=== PATIENT | female | born 1940 | race Hispanic/Latino ===

== ENCOUNTER → 2018-01-20 | Outpatient (CLI) | payer OTHER ==
[~2018-01-20] MED LIST: ASPI-555 PO; CETI10TA57 PO; CITA-107 PO; CLOP75TA32 PO; DONE10TA43 PO; METF500T6 PO; METO-408 PO; METO25TA6 PO; PANT40TA25 PO; RESV1TAB PO; ROSU10TA27 PO; SODIUM CHLORIDE 0.9% 1000ML 1,000 ML IV ONE; ZONI25CA3 PO
== END | disposition home or self-care (01) ==
LOC: RAH 10:00
PROVIDERS: ATTEND Psychiatry & Neurology Neurology
DX: R56.9 Unspecified convulsions (principal)
CPT/HCPCS: 70450

== ENCOUNTER → 2018-09-15 | Outpatient (CLI) | payer OTHER ==
[~2018-09-15] MED LIST changes: +METF-444 PO; -METF500T6 PO; -SODIUM CHLORIDE 0.9% 1000ML 1,000 ML IV ONE
== END | disposition home or self-care (01) ==
LOC: SHCH 10:53
PROVIDERS: ATTEND Internal Medicine Cardiovascular Disease
DX: I65.23 Occlusion and stenosis of bilateral carotid arteries (principal)
CPT/HCPCS: 93880

== ENCOUNTER 2019-09-20 22:43 | Emergency (ER) | payer OTHER ==
[~2019-09-20 22:43] MED LIST changes: -ROSU10TA27 PO; +ROSU10TA28 PO
[2019-09-20 23:49] LABS: BASOPHILS % (AUTO) 0.7 % (0.0-5.0); EOSINOPHILS % (AUTO) 6.9 % (0.0-8.0); HEMATOCRIT 38.3 % (36-48); LYMPHOCYTES % (AUTO) 24.3 % (21.0-51.0); MEAN CORPUSCULAR HEMOGLOBIN 29.9 pg (27.0-33.0); MEAN CORPUSCULAR HGB CONC 31.6 g/dL (32.0-36.0); MEAN CORPUSCULAR VOLUME 94.6 fL (79-99); MONOCYTES % (AUTO) 6.4 % (3.0-13.0); NEUTROPHILS % (AUTO) 61.5 % (40.0-77.0); PLATELET COUNT (AUTO) 254 K/uL (130-400); RED BLOOD CELL COUNT(AUTO) 4.05 MIL/uL (4.00-5.50); RED CELL DISTRIBUTION WIDTH 13.1 % (11.0-15.5); WHITE BLOOD COUNT (AUTO) 8.9 K/uL (4.8-10.8)
[2019-09-21 00:01] LABS: CREATININE 0.8 mg/dL (0.5-1.5); POTASSIUM 3.8 mmol/L (3.5-5.1)
[2019-09-21 00:03] LABS: INR 1.01 (0.85-1.15); PARTIAL THROMBOPLASTIN TIME 24.7 SEC (26.3-35.5); PROTHROMBIN TIME 10.6 SEC (9.6-11.6)
[2019-09-21 00:06] LABS: ALBUMIN 3.3 g/dL (3.5-5.0); BILIRUBIN,TOTAL 0.1 mg/dL (0.2-1.0); TOTAL PROTEIN, SERUM 6.4 g/dL (6.0-8.3)
[2019-09-21 01:07] LABS: B-TYPE NATRIURETIC PEPTIDE 29 pg/mL (0-100)
[2019-09-21 01:33] LABS: APPEARANCE,URINE Clear (CLEAR); BILIRUBIN,URINE Negative (NEGATIVE); COLOR,URINE Yellow (YELLOW); GLUCOSE, URINE (UA) 250 mg/dL (NEGATIVE); KETONES,URINE Negative (NEGATIVE); LEUKOCYTE ESTERASE ,URINE Small (NEGATIVE); NITRATE,URINE Positive (NEGATIVE); OCCULT BLOOD,URINE Negative (NEGATIVE); PH,URINE 5.5 (5.0-8.0); PROTEIN,URINE Negative (NEGATIVE)
[2019-09-21] MEDS ORDERED: ACETAMINOPHEN EXTRA STRENGTH 500 MG TABLET ONE (01:40)
[2019-09-21] MEDS ORDERED: KETOROLAC TROMETHAMINE 15MG/ML ONE (01:44)
[2019-09-21 01:46] LABS: BACTERIA,URINE Many /HPF (None Seen); MUCUS,URINE None Seen LPF (None Seen); RBC,URINE None Seen /HPF (0-1); SQUAMOUS EPITHELIAL CELL,UR None Seen /HPF (0-2)
[2019-09-21] MEDS ORDERED: SODIUM CHLORIDE 0.9% 500ML 500 ML IV ONE (02:01)
[2019-09-21] MEDS ORDERED: SODIUM CHLORIDE 0.9% 50 ML IV ONE (02:01)
[2019-09-21] MEDS ORDERED: CEFTRIAXONE SODIUM 1 GM ONE (02:01)
== END 2019-09-21 03:23 | disposition home or self-care (01) ==
LOC: EDH 22:43
DX: S01.01XA Laceration without foreign body of scalp, initial encounter (principal); N39.0 Urinary tract infection, site not specified; R79.1 Abnormal coagulation profile; E11.9 Type 2 diabetes mellitus without complications; I10 Essential (primary) hypertension; E78.5 Hyperlipidemia, unspecified; I25.10 Atherosclerotic heart disease of native coronary artery without angina pectoris; Z91.041 Radiographic dye allergy status; Z88.6 Allergy status to analgesic agent; Z88.5 Allergy status to narcotic agent; Z88.8 Allergy status to other drugs, medicaments and biological substances; W18.39XA Other fall on same level, initial encounter; Y93.89 Activity, other specified; Y92.89 Other specified places as the place of occurrence of the external cause; Y99.8 Other external cause status
CPT/HCPCS: 12001; 36415; 70450; 71045; 72125; 80053; 81001; 83690; 83880; 84484; 85025; 85610; 85730; 93005; 96374; 96375; 99285; J0696; J1885; J7040

== ENCOUNTER 2020-05-16 15:16 | Emergency (ER) | payer OTHER ==
[~2020-05-16 15:16] MED LIST changes: -ASPI-555 PO; +ASPI-556 PO; -PANT40TA25 PO; +PANT40TA54 PO; +ZONI25CA14 PO; -ZONI25CA3 PO
[2020-05-16 15:42] LABS: BASOPHILS % (AUTO) 1.1 % (0.0-5.0); EOSINOPHILS % (AUTO) 6.1 % (0.0-8.0); HEMATOCRIT 44.7 % (36-48); LYMPHOCYTES % (AUTO) 26.7 % (21.0-51.0); MEAN CORPUSCULAR HGB CONC 32.2 g/dL (32.0-36.0); MEAN CORPUSCULAR VOLUME 93.1 fL (79-99); MONOCYTES % (AUTO) 4.7 % (3.0-13.0); NEUTROPHILS % (AUTO) 61.2 % (40.0-77.0); PLATELET COUNT (AUTO) 265 K/uL (130-400); RED CELL DISTRIBUTION WIDTH 12.9 % (11.0-15.5); WHITE BLOOD COUNT (AUTO) 8.3 K/uL (4.8-10.8)
[2020-05-16 15:56] LABS: CREATININE 0.8 mg/dL (0.5-1.5); POTASSIUM 4.7 mmol/L (3.5-5.1)
[2020-05-16 16:01] LABS: ALBUMIN 3.6 g/dL (3.5-5.0); BILIRUBIN,TOTAL 0.3 mg/dL (0.2-1.0); TOTAL PROTEIN, SERUM 7.6 g/dL (6.0-8.3)
== END 2020-05-16 17:26 | disposition home or self-care (01) ==
LOC: EDH 15:16
DX: G40.89 Other seizures (principal); S00.11XA Contusion of right eyelid and periocular area, initial encounter; I10 Essential (primary) hypertension; E78.5 Hyperlipidemia, unspecified; I25.10 Atherosclerotic heart disease of native coronary artery without angina pectoris; E11.9 Type 2 diabetes mellitus without complications; Z79.899 Other long term (current) drug therapy; Z88.6 Allergy status to analgesic agent; Z91.041 Radiographic dye allergy status; Z88.8 Allergy status to other drugs, medicaments and biological substances; W01.198A Fall on same level from slipping, tripping and stumbling with subsequent striking against other object, initial encounter; Y93.89 Activity, other specified; Y92.098 Other place in other non-institutional residence as the place of occurrence of the external cause; Y99.8 Other external cause status
CPT/HCPCS: 36415; 70450; 80053; 85025; 93005

== ENCOUNTER 2020-08-23 19:40 | Observation (INO) | payer OTHER ==
[~2020-08-23] VITALS: Ht 156.2 cm; Wt 62.1 kg
[2020-08-23 20:25] LABS: BASOPHILS % (AUTO) 0.9 % (0.0-5.0); EOSINOPHILS % (AUTO) 5.5 % (0.0-8.0); HEMATOCRIT 41.2 % (36-48); MEAN CORPUSCULAR HEMOGLOBIN 30.2 pg (27.0-33.0); MEAN CORPUSCULAR HGB CONC 32.3 g/dL (32.0-36.0); MEAN CORPUSCULAR VOLUME 93.4 fL (79-99); MONOCYTES % (AUTO) 6.4 % (3.0-13.0); NEUTROPHILS % (AUTO) 61.1 % (40.0-77.0); PLATELET COUNT (AUTO) 267 K/uL (130-400); RED BLOOD CELL COUNT(AUTO) 4.41 MIL/uL (4.00-5.50); RED CELL DISTRIBUTION WIDTH 12.7 % (11.0-15.5); WHITE BLOOD COUNT (AUTO) 8.8 K/uL (4.8-10.8)
[2020-08-23 20:36] LABS: INR 0.92 (0.85-1.15); PARTIAL THROMBOPLASTIN TIME 24.3 SEC (26.3-35.5)
[2020-08-23 20:50] LABS: ALBUMIN 3.5 g/dL (3.5-5.0); BILIRUBIN,TOTAL 0.2 mg/dL (0.2-1.0); CREATININE 0.9 mg/dL (0.5-1.5); POTASSIUM 4.2 mmol/L (3.5-5.1); TOTAL PROTEIN, SERUM 6.2 g/dL (6.0-8.3)
[2020-08-23 21:15] LABS: BASE EXCESS,VENOUS BLOOD GAS 0.1 (-2.0-3.0); HCO3,VENOUS BLOOD GAS 25.7 (21.0-28.0); PCO2,VENOUS BLOOD GAS 45 (32-45); PH,VENOUS BLOOD GAS 7.374 (7.350-7.450)
[2020-08-24] MEDS ORDERED: NITROGLYCERIN 0.4 MG SL TAB SL PRN (00:30)
[2020-08-24] MEDS ORDERED: LACTULOSE 20 GM/30 ML UDCUP PO PRN (00:30)
[2020-08-24] MEDS ORDERED: DiphenhydrAMINE HCL 50 MG/ML VIAL IV PRN (00:30)
[2020-08-24] MEDS ORDERED: ONDANSETRON HCL 4 MG/2 ML VIAL IV PRN (00:30)
[2020-08-24] MEDS ORDERED: MAG HYDROX/AL HYDROX/SIMETH ES 30 ML SUSP UDCUP PO PRN (00:30)
[2020-08-24 02:12] LABS: HEMOGLOBIN A1C 10.7 % (4.0-6.0)
[2020-08-24 07:48] LABS: APPEARANCE,URINE Clear (CLEAR); BILIRUBIN,URINE Negative (NEGATIVE); COLOR,URINE Yellow (YELLOW); GLUCOSE, URINE (UA) >=1000 mg/dL (NEGATIVE); KETONES,URINE Negative (NEGATIVE); LEUKOCYTE ESTERASE ,URINE Small (NEGATIVE); NITRATE,URINE Negative (NEGATIVE); OCCULT BLOOD,URINE Negative (NEGATIVE); PH,URINE 6.5 (5.0-8.0); PROTEIN,URINE Negative (NEGATIVE)
[2020-08-24 08:04] LABS: BACTERIA,URINE Few /HPF (None Seen); RBC,URINE 0-1 /HPF (0-1)
[2020-08-24] MEDS ORDERED: INSULIN HUMULIN R 100 UNIT/ML 3ML ONE (08:57)
[2020-08-24] MEDS ORDERED: FAMOTIDINE 20MG TAB 20 MG TAB ONE (08:57)
[2020-08-24] MEDS: ASPIRIN 81 MG EC TAB PO SCH (09:00)
[2020-08-24] MEDS: CLOPIDOGREL BISULFATE 75 MG TAB PO SCH (09:00)
[2020-08-24] MEDS: CITALOPRAM 20 MG TABLET PO SCH (09:00)
[2020-08-24] MEDS: ZONISAMIDE 25 MG PO SCH ×3 (09:00→20:52)
[2020-08-24] MEDS: METOPROLOL SUCCINATE 50 MG TAB.SR.24H PO SCH (09:00)
[2020-08-24] MEDS: FAMOTIDINE 20MG TAB 20 MG TAB PO SCH ×2 (09:00→20:53)
[2020-08-24] MEDS: CETIRIZINE HCL 5 MG TABLET PO SCH (09:00)
[2020-08-24] MEDS ORDERED: ASPIRIN 81MG TAB.CHEW ONE (11:25)
[2020-08-24] MEDS ORDERED: CETIRIZINE HCL 5 MG TABLET PO ONE (11:25)
[2020-08-24] MEDS ORDERED: CLOPIDOGREL BISULFATE 75 MG TAB ONE (11:26)
[2020-08-24] MEDS: INSULIN HUMULIN R 100 UNIT/ML 3ML SQ SCH ×3 (11:30→21:03)
[2020-08-24 13:20] VITALS: BP 119/45
[2020-08-24] MEDS: SODIUM CHLORIDE 0.9% 1000ML 1,000 ML IV SCH (13:50)
[2020-08-24] MEDS: ATORVASTATIN CALCIUM 20 MG TABLET PO SCH (17:05)
[2020-08-24 17:40] VITALS: BP 113/61
[2020-08-24 20:42] VITALS: BP 113/40
[2020-08-24] MEDS ORDERED: DONEPEZIL HCL 5 MG TAB PO SCH (21:00)
[2020-08-24] MEDS ORDERED: METOPROLOL TARTRATE 25 MG TAB PO SCH (21:00)
[2020-08-24 23:57] VITALS: BP 118/44
[2020-08-25] MEDS: SODIUM CHLORIDE 0.9% 1000ML 1,000 ML IV SCH (03:10)
[2020-08-25 04:26] VITALS: BP 124/44
[2020-08-25] MEDS: INSULIN HUMULIN R 100 UNIT/ML 3ML SQ SCH ×2 (07:30→11:56)
[2020-08-25 07:44] VITALS: BP 112/34
[2020-08-25 08:23] LABS: BASOPHILS % (AUTO) 0.8 % (0.0-5.0); HEMATOCRIT 44.4 % (36-48); LYMPHOCYTES % (AUTO) 26.6 % (21.0-51.0); MEAN CORPUSCULAR HEMOGLOBIN 29.7 pg (27.0-33.0); MEAN CORPUSCULAR HGB CONC 31.8 g/dL (32.0-36.0); MEAN CORPUSCULAR VOLUME 93.7 fL (79-99); MONOCYTES % (AUTO) 5.2 % (3.0-13.0); NEUTROPHILS % (AUTO) 60.1 % (40.0-77.0); PLATELET COUNT (AUTO) 260 K/uL (130-400); RED BLOOD CELL COUNT(AUTO) 4.74 MIL/uL (4.00-5.50); WHITE BLOOD COUNT (AUTO) 7.5 K/uL (4.8-10.8)
[2020-08-25 08:40] LABS: ALBUMIN 2.9 g/dL (3.5-5.0); BILIRUBIN,TOTAL 0.3 mg/dL (0.2-1.0); CREATININE 0.6 mg/dL (0.5-1.5); POTASSIUM 4.8 mmol/L (3.5-5.1)
[2020-08-25] MEDS: ASPIRIN 81 MG EC TAB PO SCH (09:44)
[2020-08-25] MEDS: CITALOPRAM 20 MG TABLET PO SCH (09:45)
[2020-08-25] MEDS: ZONISAMIDE 25 MG PO SCH (09:45)
[2020-08-25] MEDS: ATORVASTATIN CALCIUM 20 MG TABLET PO SCH (09:45)
[2020-08-25] MEDS: FAMOTIDINE 20MG TAB 20 MG TAB PO SCH (09:45)
[2020-08-25] MEDS: METOPROLOL SUCCINATE 50 MG TAB.SR.24H PO SCH (09:45)
[2020-08-25] MEDS: CETIRIZINE HCL 5 MG TABLET PO SCH (09:45)
[2020-08-25] MEDS: CLOPIDOGREL BISULFATE 75 MG TAB PO SCH (09:45)
[2020-08-25 11:32] VITALS: BP 97/57
--- NOTE | 2020-08-25 13:00 | NUR ---
MET W PATIENT AND SPOUSE AT BEDSIDE. LIVES WITH SPOUSE AARON, WHO DECLINED TO BE LISTED ON FACE SHEET AT HE DOES NOT CARRY A PHONE- DAUGHTER ROCHELLE'S NUMBER CONFIRMED. NO HOME SERVICE, ADC, OR PROVIDER. PATIENT STATES SHE IS ACTIVE, INDEPENDENT, USES NO DME FOR MOBILITY, AND DRIVES HERSELF, ALTHOUGH AARON DOES MOST DRIVING. STATES DCP IS HOME Addendum: 08/25/20 at 1521 by FILIPE PÉREZ RN CM Amended: Links added.
--- NOTE | 2020-08-25 16:16 | NUR ---
IV REMOVED W/O DIFFICULTY OR COMPLICATIONS, DISCHARGE INSTRUCTIONS REVIEWED AND UNDERSTOOD BY PT AND FAMILY. PT DISMISSED BY W/C IN GOOD CONDITION W/O PAIN OR RESP DIFFICULTY BY THIS NURSE ACCOMPANIED BY SPOUSE
== END 2020-08-25 15:40 | disposition home or self-care (01) ==
LOC: EDH 19:40 → EDHIP 08-24 00:26 → 3DH 08-24 12:00
PROVIDERS: ADMIT Internal Medicine Critical Care Medicine; ATTEND Internal Medicine Critical Care Medicine
DX: S60.221A Contusion of right hand, initial encounter (principal); E11.9 Type 2 diabetes mellitus without complications; E78.5 Hyperlipidemia, unspecified; F32.9 Major depressive disorder, single episode, unspecified; F41.9 Anxiety disorder, unspecified; G40.909 Epilepsy, unspecified, not intractable, without status epilepticus; I10 Essential (primary) hypertension; I25.10 Atherosclerotic heart disease of native coronary artery without angina pectoris; Z79.02 Long term (current) use of antithrombotics/antiplatelets; Z79.82 Long term (current) use of aspirin; Z79.84 Long term (current) use of oral hypoglycemic drugs; Z88.5 Allergy status to narcotic agent; Z90.710 Acquired absence of both cervix and uterus; Z95.5 Presence of coronary angioplasty implant and graft; W18.39XA Other fall on same level, initial encounter; Y93.01 Activity, walking, marching and hiking; Y92.098 Other place in other non-institutional residence as the place of occurrence of the external cause; Y99.8 Other external cause status
CPT/HCPCS: 36415 ×2; 70450; 71045; 72125; 72170; 73130; 80053 ×2; 80177; 81001; 82010; 82803; 82948 ×6; 83036; 83930; 84484; 85025 ×2; 85610; 85730; 93005; 93306; 93356; 93880; 99285; G0378 ×40; J1815 ×4; J7030

== ENCOUNTER 2020-12-07 08:00 | Day surgery (SDC) | payer OTHER ==
[2020-12-05 13:33] LABS: BASOPHILS % (AUTO) 1.1 % (0.0-5.0); HEMATOCRIT 46.9 % (36-48); LYMPHOCYTES % (AUTO) 28.5 % (21.0-51.0); MEAN CORPUSCULAR HEMOGLOBIN 29.6 pg (27.0-33.0); MEAN CORPUSCULAR HGB CONC 31.3 g/dL (32.0-36.0); MEAN CORPUSCULAR VOLUME 94.6 fL (79-99); NEUTROPHILS % (AUTO) 57.1 % (40.0-77.0); PLATELET COUNT (AUTO) 267 K/uL (130-400); RED BLOOD CELL COUNT(AUTO) 4.96 MIL/uL (4.00-5.50); RED CELL DISTRIBUTION WIDTH 13.2 % (11.0-15.5); WHITE BLOOD COUNT (AUTO) 7.6 K/uL (4.8-10.8)
[2020-12-05 13:48] LABS: CREATININE 0.8 mg/dL (0.5-1.5); POTASSIUM 4.6 mmol/L (3.5-5.1)
[2020-12-05 13:52] LABS: INR 1.01 (0.85-1.15)
[2020-12-05 13:54] LABS: PARTIAL THROMBOPLASTIN TIME 24.5 SEC (26.3-35.5)
[2020-12-06 11:26] VITALS: BP 111/48
[~2020-12-07] VITALS: Ht 157.5 cm; Wt 62.2 kg
[2020-12-07] VITALS (19 sets, daily range): BP systolic 101–135; BP diastolic 42–85
[~2020-12-07 08:00] MED LIST changes: -ASPI-556 PO; -CETI10TA57 PO; +DAPA10TA PO; +LEVE500T98 PO; -METF-444 PO; -METO25TA6 PO; +OXYB5TAB15 PO; -RESV1TAB PO; +SODIUM CHLORIDE 0.9% 1000ML 1,000 ML IV SCH; +SUCR1TAB2 PO
[2020-12-07] MEDS ORDERED: LIDOCAINE HCL 2% VISCOUS 15 ML UDCUP PO SCH (09:45)
[2020-12-07] MEDS ORDERED: MIDAZOLAM HCL 1 MG/ML 2ML VIAL ONE (10:09)
[2020-12-07] MEDS ORDERED: FLUMAZENIL 0.1MG/1ML 5ML VIAL IV ONE (10:09)
[2020-12-07] MEDS ORDERED: MEPERIDINE-PF 25 MG/ML SYG ONE (10:10)
[2020-12-07] MEDS ORDERED: FENTANYL CITRATE PF 50 MCG/1 ML 2ML VIAL ONE ×2 (13:55→14:06)
== END 2020-12-07 17:10 | disposition home or self-care (01) ==
LOC: DAH 08:00
PROVIDERS: ATTEND Internal Medicine Cardiovascular Disease
DX: Q21.1 Atrial septal defect (principal); I08.1 Rheumatic disorders of both mitral and tricuspid valves; E11.9 Type 2 diabetes mellitus without complications; E78.5 Hyperlipidemia, unspecified; I10 Essential (primary) hypertension; G43.909 Migraine, unspecified, not intractable, without status migrainosus; K21.9 Gastro-esophageal reflux disease without esophagitis; F41.9 Anxiety disorder, unspecified; F32.9 Major depressive disorder, single episode, unspecified; Z95.5 Presence of coronary angioplasty implant and graft; Z79.82 Long term (current) use of aspirin; Z79.899 Other long term (current) drug therapy; Z90.710 Acquired absence of both cervix and uterus; Z98.890 Other specified postprocedural states; Z88.8 Allergy status to other drugs, medicaments and biological substances; Z88.3 Allergy status to other anti-infective agents; Z79.01 Long term (current) use of anticoagulants
CPT/HCPCS: 36415; 80048; 85025; 85610; 85730; 93005; 93313; A4215 ×2; A4216; A4221; A4222; A4223 ×3; A4663; J2250; J3010; J7030; 99152; J2175; J3490

== ENCOUNTER → 2021-08-27 | Outpatient (CLI) | payer OTHER ==
[~2021-08-27] MED LIST changes: -SODIUM CHLORIDE 0.9% 1000ML 1,000 ML IV SCH
[2021-08-27 12:08] LABS: PLATELET FUNCTION ANALYSIS ADP 68 SEC (62-100); PLATELET FUNCTION ANALYSIS EPI 77 SEC (55-192)
[2021-08-27 12:22] LABS: HEMATOCRIT 49.7 % (36-48); PLATELET COUNT (AUTO) 296 K/uL (130-400)
== END | disposition home or self-care (01) ==
LOC: LAB 10:10
PROVIDERS: ATTEND Internal Medicine Medical Oncology
DX: D68.9 Coagulation defect, unspecified (principal)
CPT/HCPCS: 36415; 85576

== ENCOUNTER 2021-12-12 05:02 | Emergency (ER) | payer MEDICARE, OTHER ==
[~2021-12-12] VITALS: Ht 154.9 cm; Wt 61.2 kg
[2021-12-12 05:44] VITALS: BP 118/37
[2021-12-12] MEDS ORDERED: ACETAMINOPHEN 500 MG TABLET ONE (05:47)
== END 2021-12-12 06:00 | disposition home or self-care (01) ==
LOC: EDH 05:02
DX: R04.0 Epistaxis (principal); E11.9 Type 2 diabetes mellitus without complications; E78.00 Pure hypercholesterolemia, unspecified; I10 Essential (primary) hypertension; Z79.84 Long term (current) use of oral hypoglycemic drugs; Z79.899 Other long term (current) drug therapy; Z88.5 Allergy status to narcotic agent; Z88.8 Allergy status to other drugs, medicaments and biological substances

== ENCOUNTER 2022-01-15 20:16 | Emergency (ER) | payer OTHER ==
[2022-01-15 20:52] LABS: BASOPHILS % (AUTO) 0.7 % (0.0-5.0); EOSINOPHILS % (AUTO) 5.8 % (0.0-8.0); HEMATOCRIT 42.4 % (36-48); MEAN CORPUSCULAR HEMOGLOBIN 29.1 pg (27.0-33.0); MEAN CORPUSCULAR HGB CONC 31.1 g/dL (32.0-36.0); MEAN CORPUSCULAR VOLUME 93.6 fL (79-99); MONOCYTES % (AUTO) 7.2 % (3.0-13.0); PLATELET COUNT (AUTO) 276 K/uL (130-400); RED BLOOD CELL COUNT(AUTO) 4.53 MIL/uL (4.00-5.50); RED CELL DISTRIBUTION WIDTH 13.3 % (11.0-15.5); WHITE BLOOD COUNT (AUTO) 9.7 K/uL (4.8-10.8)
[2022-01-15 20:55] LABS: CREATININE 0.7 mg/dL (0.5-1.5); POTASSIUM 3.8 mmol/L (3.5-5.1)
[2022-01-15] MEDS ORDERED: TRAMADOL HCL 50 MG TABLET PO ONE (22:30)
[2022-01-15 22:32] LABS: APPEARANCE,URINE Clear (CLEAR); BILIRUBIN,URINE Negative (NEGATIVE); COLOR,URINE Yellow (YELLOW); GLUCOSE, URINE (UA) >=1000 mg/dL (NEGATIVE); KETONES,URINE Negative (NEGATIVE); LEUKOCYTE ESTERASE ,URINE Negative (NEGATIVE); NITRATE,URINE Negative (NEGATIVE); OCCULT BLOOD,URINE Negative (NEGATIVE); PROTEIN,URINE Negative (NEGATIVE)
[2022-01-15 22:38] VITALS: BP 139/53
[2022-01-15 22:56] LABS: BACTERIA,URINE None Seen /HPF (None Seen); RBC,URINE 0-1 /HPF (0-1); SQUAMOUS EPITHELIAL CELL,UR Few /HPF (0-2); WBC,URINE 0-1 /HPF (0-1)
== END 2022-01-15 22:47 | disposition home or self-care (01) ==
LOC: EDH 20:16
DX: S09.90XA Unspecified injury of head, initial encounter (principal); M25.561 Pain in right knee; M25.562 Pain in left knee; M25.551 Pain in right hip; M79.621 Pain in right upper arm; E11.9 Type 2 diabetes mellitus without complications; I10 Essential (primary) hypertension; I21.9 Acute myocardial infarction, unspecified; I25.10 Atherosclerotic heart disease of native coronary artery without angina pectoris; Z88.8 Allergy status to other drugs, medicaments and biological substances; Z88.5 Allergy status to narcotic agent; Z79.899 Other long term (current) drug therapy; Z79.84 Long term (current) use of oral hypoglycemic drugs; W10.9XXA Fall (on) (from) unspecified stairs and steps, initial encounter; Y93.89 Activity, other specified; Y92.89 Other specified places as the place of occurrence of the external cause; Y99.8 Other external cause status
CPT/HCPCS: 36415; 70450; 72125; 73060; 73502; 73562; 80048; 81001; 84484; 85025; 93005

== ENCOUNTER 2022-01-28 23:07 | Emergency (ER) | payer OTHER ==
[~2022-01-28] VITALS: Ht 154.9 cm; Wt 61.7 kg
[2022-01-28 23:51] LABS: BASOPHILS % (AUTO) 0.8 % (0.0-5.0); EOSINOPHILS % (AUTO) 7.9 % (0.0-8.0); HEMATOCRIT 45.5 % (36-48); LYMPHOCYTES % (AUTO) 27.3 % (21.0-51.0); MEAN CORPUSCULAR HEMOGLOBIN 30.3 pg (27.0-33.0); MEAN CORPUSCULAR HGB CONC 31.9 g/dL (32.0-36.0); MEAN CORPUSCULAR VOLUME 95.2 fL (79-99); MONOCYTES % (AUTO) 6.1 % (3.0-13.0); NEUTROPHILS % (AUTO) 57.6 % (40.0-77.0); PLATELET COUNT (AUTO) 277 K/uL (130-400); RED BLOOD CELL COUNT(AUTO) 4.78 MIL/uL (4.00-5.50); RED CELL DISTRIBUTION WIDTH 13.2 % (11.0-15.5); WHITE BLOOD COUNT (AUTO) 10.3 K/uL (4.8-10.8)
[2022-01-29] MEDS ORDERED: ALPRAZOLAM 0.25 MG TABLET PO ONE
[2022-01-29 00:01] LABS: CARBON DIOXIDE 33 mmol/L (21-32); CHLORIDE 102 mmol/L (101-111); CREATININE 0.7 mg/dL (0.5-1.5); GLOMERULAR FILTR. RATE CALC 86 mL/min (>60); GLUCOSE,RANDOM 200 mg/dL (70-105); POTASSIUM 4.3 mmol/L (3.5-5.1); SODIUM SERUM 144 mmol/L (136-145); UREA NITROGEN, BLOOD 17 mg/dL (7-18)
[2022-01-29 00:09] LABS: ALANINE AMINOTRANSFERASE 27 U/L (12-78); ALBUMIN 3.8 g/dL (3.5-5.0); ALCOHOL, BLOOD < 3 mg/dL (0-10); ASPARTATE AMINOTRANSFERASE 26 U/L (10-37); BILIRUBIN,TOTAL 0.2 mg/dL (0.2-1.0); TOTAL PROTEIN, SERUM 7.3 g/dL (6.0-8.3)
[2022-01-29] MEDS ORDERED: LACO50TA2 PO (02:10)
[2022-01-29 02:32] VITALS: BP 137/78
== END 2022-01-29 02:41 | disposition home or self-care (01) ==
LOC: EDH 23:07
DX: R56.9 Unspecified convulsions (principal); F32.A Depression, unspecified; E11.9 Type 2 diabetes mellitus without complications; E78.00 Pure hypercholesterolemia, unspecified; I10 Essential (primary) hypertension; F03.90 Unspecified dementia, unspecified severity, without behavioral disturbance, psychotic disturbance, mood disturbance, and anxiety; Z88.8 Allergy status to other drugs, medicaments and biological substances; Z88.5 Allergy status to narcotic agent; Z88.6 Allergy status to analgesic agent; Z79.899 Other long term (current) drug therapy
CPT/HCPCS: 36415; 80053; 85025; 93005

== ENCOUNTER → 2022-02-11 | Outpatient (CLI) | payer OTHER ==
[~2022-02-11] MED LIST changes: +LACO50TA2 PO
== END | disposition home or self-care (01) ==
LOC: RAH 15:47
PROVIDERS: ATTEND Internal Medicine
DX: M47.812 Spondylosis without myelopathy or radiculopathy, cervical region (principal); M54.50 Low back pain, unspecified; M54.2 Cervicalgia; M25.511 Pain in right shoulder; M25.551 Pain in right hip; M25.561 Pain in right knee; M47.816 Spondylosis without myelopathy or radiculopathy, lumbar region; W19.XXXA Unspecified fall, initial encounter; E88.89 Other specified metabolic disorders; Y93.89 Activity, other specified; Y92.89 Other specified places as the place of occurrence of the external cause; Y99.8 Other external cause status
CPT/HCPCS: 72040; 72100; 73030; 73502; 73560

== ENCOUNTER → 2022-02-12 | Outpatient (CLI) | payer OTHER ==
[~2022-02-12] MED LIST changes: +REGADENOSON 0.4 MG/5 ML PF SYG IVP SCH
== END | disposition home or self-care (01) ==
LOC: OIH 09:10
PROVIDERS: ATTEND Internal Medicine Cardiovascular Disease
DX: R07.9 Chest pain, unspecified (principal)
CPT/HCPCS: 78452; 93017; 96374; A9500 ×2; J2785

== ENCOUNTER 2022-04-28 10:39 | Emergency (ER) | payer OTHER ==
[~2022-04-28] VITALS: Ht 152.4 cm; Wt 61.2 kg
[~2022-04-28 10:39] MED LIST changes: -REGADENOSON 0.4 MG/5 ML PF SYG IVP SCH
[2022-04-28] MEDS ORDERED: POLY30DR OP (13:56)
[2022-04-28] MEDS: TETRACAINE HCL 0.5% 4 ML OPHTH SOLN ONE (13:58)
[2022-04-28] MEDS: FLUORESCEIN SODIUM 1 STRIP STRIP ONE (13:58)
[2022-04-28 14:30] VITALS: BP 132/71
== END 2022-04-28 14:54 | disposition home or self-care (01) ==
LOC: EDH 10:39
DX: H10.212 Acute toxic conjunctivitis, left eye (principal); E11.9 Type 2 diabetes mellitus without complications; E78.00 Pure hypercholesterolemia, unspecified; F32.A Depression, unspecified; F03.90 Unspecified dementia, unspecified severity, without behavioral disturbance, psychotic disturbance, mood disturbance, and anxiety; I10 Essential (primary) hypertension; Z88.5 Allergy status to narcotic agent; Z88.8 Allergy status to other drugs, medicaments and biological substances; Z95.5 Presence of coronary angioplasty implant and graft; Z79.899 Other long term (current) drug therapy

== ENCOUNTER 2022-11-13 09:02 | Emergency (ER) | payer OTHER, MEDICARE ==
[~2022-11-13] VITALS: Ht 154.9 cm; Wt 59.0 kg
[~2022-11-13 09:02] MED LIST changes: +ASPI-1197 PO; +CHOL2000 PO; +KETO5DRO82 OP; -LEVE500T98 PO; +MECO10005 PO; +MELA1TAB73 PO; +POLY30DR OP; +SITA100T12 PO
[2022-11-13 09:41] LABS: EOSINOPHILS % (AUTO) 19.7 % (0.0-8.0); HEMATOCRIT 43.8 % (36-48); LYMPHOCYTES % (AUTO) 21.9 % (21.0-51.0); MEAN CORPUSCULAR HEMOGLOBIN 29.5 pg (27.0-33.0); MEAN CORPUSCULAR HGB CONC 31.1 g/dL (32.0-36.0); MONOCYTES % (AUTO) 5.7 % (3.0-13.0); NEUTROPHILS % (AUTO) 51.5 % (40.0-77.0); PLATELET COUNT (AUTO) 276 K/uL (130-400); RED BLOOD CELL COUNT(AUTO) 4.61 MIL/uL (4.00-5.50); WHITE BLOOD COUNT (AUTO) 8.6 K/uL (4.8-10.8)
[2022-11-13 09:52] LABS: INR 0.95 (0.85-1.15); PROTHROMBIN TIME 10.4 SEC (9.6-11.6)
[2022-11-13 09:54] LABS: PARTIAL THROMBOPLASTIN TIME 25.6 SEC (26.3-35.5)
[2022-11-13 09:57] LABS: CREATININE 0.6 mg/dL (0.5-1.5); POTASSIUM 3.9 mmol/L (3.5-5.1)
[2022-11-13 10:02] LABS: ALBUMIN 3.3 g/dL (3.5-5.0); MAGNESIUM 1.7 mg/dL (1.80-2.40); TOTAL PROTEIN, SERUM 6.7 g/dL (6.0-8.3)
[2022-11-13 10:05] LABS: B-TYPE NATRIURETIC PEPTIDE 47 pg/mL (0-100)
[2022-11-13] MEDS ORDERED: IOHEXOL 350 MG/ML 100ML INFUS..BTL IV ONE (10:14)
[2022-11-13 11:14] LABS: APPEARANCE,URINE CLEAR (CLEAR); BILIRUBIN,URINE NEGATIVE (NEGATIVE); COLOR,URINE COLORLESS (YELLOW); GLUCOSE, URINE (UA) NEGATIVE (NEGATIVE); KETONES,URINE NEGATIVE (NEGATIVE); LEUKOCYTE ESTERASE ,URINE NEGATIVE Leu/uL (NEGATIVE); NITRATE,URINE NEGATIVE (NEGATIVE); OCCULT BLOOD,URINE NEGATIVE (NEGATIVE); PROTEIN,URINE NEGATIVE (NEGATIVE); UROBILINOGEN,URINE 0.2 mg/dL (0.2-1.0)
[2022-11-13] MEDS ORDERED: MAGNESIUM OXIDE 400 MG TABLET PO SCH (13:00)
[2022-11-13 13:11] VITALS: BP 134/53
[2022-11-13] MEDS ORDERED: PANTOPRAZOLE 40 MG/VIAL IVP ONE (13:30)
[2022-11-13] MEDS ORDERED: MAG/ALUM/SIMETH 30 ML UDCUP PO ONE (13:30)
[2022-11-13] MEDS ORDERED: LIDOCAINE HCL 2% VISCOUS 15 ML UDCUP PO ONE (13:30)
== END 2022-11-13 14:41 | disposition home or self-care (01) ==
LOC: EDH 09:02
DX: R07.89 Other chest pain (principal); R10.84 Generalized abdominal pain; M54.50 Low back pain, unspecified; E11.9 Type 2 diabetes mellitus without complications; E78.00 Pure hypercholesterolemia, unspecified; I25.10 Atherosclerotic heart disease of native coronary artery without angina pectoris; F03.90 Unspecified dementia, unspecified severity, without behavioral disturbance, psychotic disturbance, mood disturbance, and anxiety; Z88.4 Allergy status to anesthetic agent; Z91.040 Latex allergy status; Z88.5 Allergy status to narcotic agent; Z79.899 Other long term (current) drug therapy
CPT/HCPCS: 36415; 71045; 74176; 80053; 81003; 82550; 83735; 83880; 84484; 85025; 85610; 85730; 93005; Q9967

== ENCOUNTER → 2022-11-19 | Outpatient (CLI) | payer OTHER, MEDICARE | END | disposition home or self-care (01) | LOC: RAH 11:00 | PROVIDERS: ATTEND Internal Medicine | DX: S32.019A Unspecified fracture of first lumbar vertebra, initial encounter for closed fracture (principal); M47.27 Other spondylosis with radiculopathy, lumbosacral region; M48.07 Spinal stenosis, lumbosacral region; X58.XXXA Exposure to other specified factors, initial encounter; Y93.89 Activity, other specified; Y92.89 Other specified places as the place of occurrence of the external cause; Y99.8 Other external cause status | CPT/HCPCS: 72100 ==

== ENCOUNTER → 2022-12-06 | Outpatient (CLI) | payer OTHER, MEDICARE | END | disposition home or self-care (01) | LOC: SHCH 08:47 | PROVIDERS: ATTEND Internal Medicine Cardiovascular Disease | DX: I35.8 Other nonrheumatic aortic valve disorders (principal); I25.10 Atherosclerotic heart disease of native coronary artery without angina pectoris; I11.9 Hypertensive heart disease without heart failure | CPT/HCPCS: 93306 ==

== ENCOUNTER 2022-12-23 09:20 | Day surgery (SDC) | payer OTHER, MEDICARE ==
[2022-12-23] VITALS (9 sets, daily range): BP systolic 118–162; BP diastolic 48–76
[~2022-12-23] VITALS: Ht 154.9 cm; Wt 58.5 kg
[~2022-12-23 09:20] MED LIST changes: -CLOP75TA32 PO; -DAPA10TA PO; -KETO5DRO82 OP; -MELA1TAB73 PO; -METO-408 PO; -OXYB5TAB15 PO; -SITA100T12 PO; -SUCR1TAB2 PO; -ZONI25CA14 PO
[2022-12-23] MEDS ORDERED: GABA-529 PO (11:40)
[2022-12-23] MEDS ORDERED: CEFP200T14 PO (11:40)
[2022-12-23] MEDS ORDERED: SITA100T12 PO (11:40)
[2022-12-23] MEDS ORDERED: ONDA-104 PO (11:40)
[2022-12-23] MEDS ORDERED: CALC-744 PO (11:40)
[2022-12-23] MEDS ORDERED: ACET-66 PO (11:40)
[2022-12-23] MEDS ORDERED: PROPOFOL 10 MG/ML 20ML VIAL IV ONE (12:11)
[2022-12-23] MEDS ORDERED: LIDOCAINE PF 100MG/5ML (2%) SYRINGE 5ML ONE (12:12)
[2022-12-23] MEDS ORDERED: ACETAMINOPHEN 500 MG TABLET ONE (12:45)
== END 2022-12-23 13:00 | disposition home or self-care (01) ==
LOC: DAH 09:20 → ENDO 09:20
PROVIDERS: ATTEND Internal Medicine
DX: R13.10 Dysphagia, unspecified (principal); Z20.822 Contact with and (suspected) exposure to COVID-19; R11.2 Nausea with vomiting, unspecified; R14.0 Abdominal distension (gaseous); I10 Essential (primary) hypertension; E11.9 Type 2 diabetes mellitus without complications; E78.5 Hyperlipidemia, unspecified; K21.9 Gastro-esophageal reflux disease without esophagitis; F41.9 Anxiety disorder, unspecified; F32.A Depression, unspecified; I25.10 Atherosclerotic heart disease of native coronary artery without angina pectoris; R10.30 Lower abdominal pain, unspecified; Z79.899 Other long term (current) drug therapy; Z79.01 Long term (current) use of anticoagulants; Z88.8 Allergy status to other drugs, medicaments and biological substances; Z88.6 Allergy status to analgesic agent; Z95.5 Presence of coronary angioplasty implant and graft; Z98.890 Other specified postprocedural states; Z98.891 History of uterine scar from previous surgery
CPT/HCPCS: 87426; 82948; 43239; J2001; J2704; A4620; A4215 ×2; A4223; A7002; A4222; A4221; A4663; A4216; J7030; A4606

== ENCOUNTER → 2023-01-20 | Outpatient (CLI) | payer OTHER, MEDICARE ==
[~2023-01-20] MED LIST changes: +ACET-66 PO; +CALC-744 PO; +CEFP200T14 PO; +GABA-529 PO; +ONDA-104 PO; -PANT40TA54 PO; +SITA100T12 PO
== END | disposition home or self-care (01) ==
LOC: RAH 10:20
PROVIDERS: ATTEND Internal Medicine Gastroenterology
DX: R10.13 Epigastric pain (principal)
CPT/HCPCS: 78264; A9541

== ENCOUNTER 2023-06-16 22:16 | Observation (INO) | payer OTHER, MEDICARE ==
[~2023-06-16] VITALS: Ht 154.9 cm; Wt 59.6 kg
[~2023-06-16 22:16] MED LIST changes: +LEVO25TA9 PO
[2023-06-16 22:32] LABS: BASOPHILS # (AUTO) 0.05 K/uL (0.00-0.20); BASOPHILS % (AUTO) 0.5 % (0.0-5.0); EOSINOPHILS # (AUTO) 1.28 K/uL (0.00-0.70); EOSINOPHILS % (AUTO) 13.3 % (0.0-8.0); HEMATOCRIT 42.6 % (36-48); IMMATURE GRANULOCYTE ABSOLUTE 0.03 K/uL (0-1); LYMPHOCYTES # (AUTO) 2.5 K/uL (1.0-4.8); LYMPHOCYTES % (AUTO) 25.8 % (21.0-51.0); MEAN CORPUSCULAR HEMOGLOBIN 30.6 pg (27.0-33.0); MEAN CORPUSCULAR HGB CONC 32.2 g/dL (32.0-36.0); MEAN CORPUSCULAR VOLUME 95.3 fL (79-99); MONOCYTES # (AUTO) 0.7 K/uL (0.1-1.0); MONOCYTES % (AUTO) 6.9 % (3.0-13.0); NEUTROPHILS # (AUTO) 5.1 K/uL (1.8-7.7); NEUTROPHILS % (AUTO) 53.2 % (40.0-77.0); PLATELET COUNT (AUTO) 302 K/uL (130-400); RED BLOOD CELL COUNT(AUTO) 4.47 MIL/uL (4.00-5.50); RED CELL DISTRIBUTION WIDTH 13.5 % (11.0-15.5); WHITE BLOOD COUNT (AUTO) 9.7 K/uL (4.8-10.8)
[2023-06-16 22:56] LABS: CREATININE 0.7 mg/dL (0.5-1.5); POTASSIUM 3.9 mmol/L (3.5-5.1)
[2023-06-16 23:01] LABS: ALBUMIN 3.3 g/dL (3.5-5.0); BILIRUBIN,TOTAL 0.2 mg/dL (0.2-1.0)
[2023-06-16 23:57] LABS: APPEARANCE,URINE CLEAR (CLEAR); BILIRUBIN,URINE NEGATIVE (NEGATIVE); COLOR,URINE COLORLESS (YELLOW); GLUCOSE, URINE (UA) NEGATIVE (NEGATIVE); KETONES,URINE NEGATIVE (NEGATIVE); LEUKOCYTE ESTERASE ,URINE 250 Leu/uL (NEGATIVE); NITRATE,URINE NEGATIVE (NEGATIVE); OCCULT BLOOD,URINE NEGATIVE (NEGATIVE); PH,URINE 6.5 (5.0-8.0); PROTEIN,URINE NEGATIVE (NEGATIVE); UROBILINOGEN,URINE 0.2 mg/dL (0.2-1.0)
[2023-06-17] LABS: ADD UA MICROSCOPIC YES
[2023-06-17] MEDS ORDERED: ONDANSETRON 4MG INJ IVP PRN
[2023-06-17] MEDS ORDERED: ACETAMINOPHEN 325 MG TAB PO PRN
[2023-06-17] MEDS ORDERED: HYDRALAZINE 20MG/ML VIAL IV PRN
[2023-06-17] MEDS ORDERED: CLONIDINE HCL 0.1 MG TABLET PO PRN
[2023-06-17] MEDS ORDERED: LACTULOSE 20 GM/30 ML UDCUP PO PRN
[2023-06-17] MEDS ORDERED: ACETAMINOPHEN 650 MG SUPPOSITORY RC PRN
[2023-06-17] MEDS ORDERED: LABETALOL 20MG SYG IV PRN
[2023-06-17] MEDS ORDERED: DOCUSATE SODIUM 100 MG CAP PO PRN
[2023-06-17] MEDS ORDERED: TEMAZEPAM 15 MG CAPSULE PO PRN
[2023-06-17] MEDS ORDERED: FAMOTIDINE 20MG VIAL IV ONE ×2 (00:02→00:30)
[2023-06-17] MEDS ORDERED: SOLU-MEDROL 125MG VIAL ONE (00:02)
[2023-06-17] MEDS ORDERED: DiphenhydrAMINE HCL 50 MG/ML VIAL ONE (00:02)
[2023-06-17 00:05] LABS: RBC,URINE 0-1 /HPF (0-1); SQUAMOUS EPITHELIAL CELL,UR RARE /HPF (0-2)
[2023-06-17] MEDS ORDERED: SOLU-MEDROL 125MG VIAL IVP ONE (00:30)
[2023-06-17] MEDS ORDERED: DiphenhydrAMINE HCL 50 MG/ML VIAL IV ONE (00:30)
[2023-06-17] MEDS ORDERED: FURO20TA4 PO (01:33)
[2023-06-17] MEDS ORDERED: TRAM50TA4 PO (01:33)
[2023-06-17] MEDS ORDERED: MELA10TA2 PO (01:33)
[2023-06-17] MEDS ORDERED: NITR0.4T50 SL (01:33)
[2023-06-17] MEDS ORDERED: CHOL200013 PO (01:33)
[2023-06-17] MEDS ORDERED: OMEP40CA21 PO (01:33)
[2023-06-17] MEDS ORDERED: LACO50TA2 PO (01:33)
[2023-06-17] MEDS ORDERED: PIOG30TA70 PO (01:33)
[2023-06-17] MEDS ORDERED: CYAN-52 PO (01:33)
[2023-06-17] MEDS ORDERED: NITROGLYCERIN 0.4 MG SL TAB SL PRN (02:00)
[2023-06-17] MEDS ORDERED: TRAMADOL HCL 50 MG TABLET PO PRN (02:00)
[2023-06-17] MEDS ORDERED: KCL 20 MEQ ERTAB PO PRN (02:30)
[2023-06-17] MEDS ORDERED: POTASSIUM CHLORIDE 20MEQ/100ML 100 ML IV PRN (02:30)
[2023-06-17] MEDS ORDERED: MAGNESIUM 2GM PREMIX 50ML 50 ML IV PRN (02:30)
[2023-06-17] MEDS ORDERED: POTASSIUM CHLORIDE 10% ELIXIR 20 MEQ/15 ML UDCUP PO PRN (02:30)
[2023-06-17] MEDS: CEFTRIAXONE 2GM VIAL IVPB SCH (04:31)
[2023-06-17 04:47] LABS: BASOPHILS # (AUTO) 0.05 K/uL (0.00-0.20); BASOPHILS % (AUTO) 0.6 % (0.0-5.0); EOSINOPHILS % (AUTO) 2.3 % (0.0-8.0); HEMATOCRIT 43.7 % (36-48); IMMATURE GRANULOCYTE ABSOLUTE 0.03 K/uL (0-1); LYMPHOCYTES # (AUTO) 1.2 K/uL (1.0-4.8); LYMPHOCYTES % (AUTO) 13.9 % (21.0-51.0); MEAN CORPUSCULAR HEMOGLOBIN 30.4 pg (27.0-33.0); MEAN CORPUSCULAR HGB CONC 31.8 g/dL (32.0-36.0); MEAN CORPUSCULAR VOLUME 95.6 fL (79-99); MONOCYTES # (AUTO) 0.1 K/uL (0.1-1.0); MONOCYTES % (AUTO) 0.8 % (3.0-13.0); NEUTROPHILS # (AUTO) 7.1 K/uL (1.8-7.7); NEUTROPHILS % (AUTO) 82.1 % (40.0-77.0); PLATELET COUNT (AUTO) 292 K/uL (130-400); RED BLOOD CELL COUNT(AUTO) 4.57 MIL/uL (4.00-5.50); RED CELL DISTRIBUTION WIDTH 13.6 % (11.0-15.5); WHITE BLOOD COUNT (AUTO) 8.6 K/uL (4.8-10.8)
[2023-06-17 04:56] LABS: INR 0.96 (0.85-1.15); PROTHROMBIN TIME 11.2 SEC (9.6-11.6)
[2023-06-17 04:57] LABS: PARTIAL THROMBOPLASTIN TIME 26.8 SEC (26.3-35.5)
[2023-06-17 05:07] LABS: CREATININE 0.6 mg/dL (0.5-1.5); MAGNESIUM 1.7 mg/dL (1.80-2.40); PHOSPHORUS 3.1 mg/dL (2.5-4.9); POTASSIUM 4.2 mmol/L (3.5-5.1); THYROID STIMULATING HORMONE 0.79 uIU/mL (0.36-3.74)
[2023-06-17 05:09] LABS: HEMOGLOBIN A1C 7.2 % (4.0-6.0)
[2023-06-17 06:03] LABS: EOSINOPHILS % (MANUAL) 3 % (1-6); LYMPHOCYTES % (MANUAL) 16 % (22-44); SEGMENTED NEUTROPHILS % 81 % (40-70); TOTAL CELLS COUNTED 100
[2023-06-17 06:04] LABS: MAN.DIFF COMMENT-IMPRESSION MANUAL DIFFERENTIAL; PLATELET MORPHOLOGY COMMENT ADEQUATE; WBC MORPHOLOGY NORMAL
[2023-06-17] MEDS: INSULIN HUMULIN R 100 UNIT/ML 3ML SQ SCH ×4 (07:30→20:43)
[2023-06-17 07:55] LABS: SARS-CoV-2, RNA, NAAT NEGATIVE SARS CoV-2 (NEGATIVE)
[2023-06-17 08:35] VITALS: BP 141/76; PULSE 68; RESP 18
[2023-06-17] MEDS: LACOSAMIDE 50 MG PO SCH ×2 (09:00→20:46)
[2023-06-17] MEDS: FUROSEMIDE 20 MG TABLET PO SCH (09:00)
[2023-06-17 12:00] VITALS: BP 119/57; PULSE 68; RESP 16
[2023-06-17] MEDS: FAMOTIDINE 20MG TAB PO SCH ×2 (12:18→21:46)
[2023-06-17] MEDS: ENOXAPARIN SODIUM 40 MG/0.4 ML SYRINGE SQ SCH (12:18)
[2023-06-17] MEDS: CITALOPRAM 20 MG TABLET PO SCH (12:19)
[2023-06-17] MEDS: ASPIRIN 81MG CHEW TAB PO SCH (12:19)
[2023-06-17] MEDS: GABAPENTIN 100 MG CAPSULE PO SCH ×4 (12:20→21:46)
[2023-06-17 16:00] VITALS: BP 123/52; PULSE 73; RESP 16
[2023-06-17 20:00] VITALS: O2SAT 93
[2023-06-17 20:41] VITALS: BP 110/82; PULSE 64; RESP 18
[2023-06-17] MEDS: DONEPEZIL HCL 5 MG TAB PO SCH ×2 (21:00→21:46)
[2023-06-17] MEDS: ATORVASTATIN 40 MG TABLET PO SCH ×2 (21:00→21:48)
[2023-06-17] MEDS ORDERED: MELATONIN 5 MG TABLET PO SCH (21:00)
[2023-06-18] MEDS: CEFTRIAXONE 2GM VIAL IVPB SCH (03:31)
[2023-06-18 04:15] VITALS: BP 114/51; PULSE 63; RESP 18
[2023-06-18 04:18] LABS: BASOPHILS # (AUTO) 0.06 K/uL (0.00-0.20); BASOPHILS % (AUTO) 0.5 % (0.0-5.0); EOSINOPHILS # (AUTO) 0.21 K/uL (0.00-0.70); EOSINOPHILS % (AUTO) 1.9 % (0.0-8.0); HEMATOCRIT 38.8 % (36-48); IMMATURE GRANULOCYTE ABSOLUTE 0.04 K/uL (0-1); LYMPHOCYTES # (AUTO) 2.5 K/uL (1.0-4.8); LYMPHOCYTES % (AUTO) 22.4 % (21.0-51.0); MEAN CORPUSCULAR HEMOGLOBIN 30.7 pg (27.0-33.0); MEAN CORPUSCULAR HGB CONC 32.2 g/dL (32.0-36.0); MEAN CORPUSCULAR VOLUME 95.3 fL (79-99); MONOCYTES # (AUTO) 0.7 K/uL (0.1-1.0); MONOCYTES % (AUTO) 6.6 % (3.0-13.0); NEUTROPHILS # (AUTO) 7.5 K/uL (1.8-7.7); NEUTROPHILS % (AUTO) 68.2 % (40.0-77.0); PLATELET COUNT (AUTO) 303 K/uL (130-400); RED BLOOD CELL COUNT(AUTO) 4.07 MIL/uL (4.00-5.50); RED CELL DISTRIBUTION WIDTH 13.8 % (11.0-15.5)
[2023-06-18 04:39] LABS: ALBUMIN 2.7 g/dL (3.5-5.0); BILIRUBIN,TOTAL 0.1 mg/dL (0.2-1.0); CREATININE 0.7 mg/dL (0.5-1.5); POTASSIUM 3.4 mmol/L (3.5-5.1); TOTAL PROTEIN, SERUM 5.7 g/dL (6.0-8.3)
[2023-06-18] MEDS: INSULIN HUMULIN R 100 UNIT/ML 3ML SQ SCH ×4 (05:25→21:00)
[2023-06-18 07:55] VITALS: BP 127/51; PULSE 54; RESP 16
[2023-06-18] MEDS: LACOSAMIDE 50 MG PO SCH ×2 (09:00→21:00)
[2023-06-18] MEDS: ENOXAPARIN SODIUM 40 MG/0.4 ML SYRINGE SQ SCH (09:40)
[2023-06-18] MEDS: ASPIRIN 81MG CHEW TAB PO SCH (09:41)
[2023-06-18] MEDS: FUROSEMIDE 20 MG TABLET PO SCH (09:41)
[2023-06-18] MEDS: CITALOPRAM 20 MG TABLET PO SCH (09:41)
[2023-06-18] MEDS: FAMOTIDINE 20MG TAB PO SCH ×2 (09:41→21:46)
[2023-06-18 11:05] VITALS: BP 147/57; PULSE 67; RESP 16
[2023-06-18] MEDS ORDERED: AMOX-426 PO (13:39)
[2023-06-18] MEDS: GABAPENTIN 100 MG CAPSULE PO SCH ×2 (14:48→21:46)
[2023-06-18 15:00] VITALS: BP 117/46; PULSE 70; RESP 16
[2023-06-18 20:00] VITALS: BP 117/51; PULSE 64; RESP 18
[2023-06-18] MEDS: DONEPEZIL HCL 5 MG TAB PO SCH (21:46)
[2023-06-18] MEDS: ATORVASTATIN 40 MG TABLET PO SCH (21:46)
== END 2023-06-18 23:00 | disposition home or self-care (01) ==
LOC: EDH 22:16 → EDHIP 23:51 → 4BH 06-17 08:30 → 4CH 06-17 09:38 → 4BH 06-17 21:30
PROVIDERS: ADMIT Internal Medicine Pulmonary Disease; ATTEND Internal Medicine Pulmonary Disease
DX: R07.81 Pleurodynia (principal); Z20.822 Contact with and (suspected) exposure to COVID-19; N30.00 Acute cystitis without hematuria; I10 Essential (primary) hypertension; I25.110 Atherosclerotic heart disease of native coronary artery with unstable angina pectoris; E11.65 Type 2 diabetes mellitus with hyperglycemia; E78.00 Pure hypercholesterolemia, unspecified; F03.92 Unspecified dementia, unspecified severity, with psychotic disturbance; F03.93 Unspecified dementia, unspecified severity, with mood disturbance; I24.9 Acute ischemic heart disease, unspecified; F41.9 Anxiety disorder, unspecified; F32.9 Major depressive disorder, single episode, unspecified; F03.94 Unspecified dementia, unspecified severity, with anxiety; R56.9 Unspecified convulsions; Z79.82 Long term (current) use of aspirin; Z90.710 Acquired absence of both cervix and uterus; Z91.041 Radiographic dye allergy status; Z91.199 Patient's noncompliance with other medical treatment and regimen due to unspecified reason; Z95.5 Presence of coronary angioplasty implant and graft
CPT/HCPCS: 99285; 84484 ×3; 80053 ×2; 85025 ×3; 87088; 81001; 36415 ×3; 71045 ×2; 93005 ×2; 96372 ×2; 96365; 96375; 96366 ×2; 96367; 83036; 84443; 83735 ×2; 84100; 80048; 83880; 85378; 85610; 85730; 82948 ×7; 87635; 93306; 78582; G0378 ×46; J1815 ×2; J3475; J1200; J3490; J2930; J0696 ×2; J1650 ×2; A9540; A9558

== ENCOUNTER 2023-08-17 18:32 | Emergency (ER) | payer MEDICARE, OTHER ==
[~2023-08-17] VITALS: Ht 154.9 cm; Wt 54.4 kg
[~2023-08-17 18:32] MED LIST changes: +AMOX-426 PO; -CHOL2000 PO; +CHOL200013 PO; +CYAN-52 PO; +FURO20TA4 PO; -MECO10005 PO; +MELA10TA2 PO; +NITR0.4T50 SL; +OMEP40CA21 PO; +PIOG30TA70 PO; +TRAM50TA4 PO
[2023-08-17 18:34] VITALS: BP 118/75; PULSE 95; RESP 14
== END 2023-08-17 23:09 | disposition left against medical advice (07) ==
LOC: EDH 18:32
DX: M25.511 Pain in right shoulder (principal); Z53.21 Procedure and treatment not carried out due to patient leaving prior to being seen by health care provider
CPT/HCPCS: 93005; 99281

== ENCOUNTER 2023-10-10 19:24 | Emergency (ER) | payer OTHER ==
[~2023-10-10] VITALS: Ht 154.9 cm; Wt 61.2 kg
[2023-10-10] MEDS ORDERED: ACETAMINOPHEN 325 MG TAB PO ONE (19:30)
[2023-10-10 21:06] LABS: BASOPHILS # (AUTO) 0.04 K/uL (0.00-0.20); BASOPHILS % (AUTO) 0.6 % (0.0-5.0); EOSINOPHILS # (AUTO) 0.34 K/uL (0.00-0.70); EOSINOPHILS % (AUTO) 5.2 % (0.0-8.0); HEMATOCRIT 39.4 % (36-48); IMMATURE GRANULOCYTE ABSOLUTE 0.02 K/uL (0-1); LYMPHOCYTES % (AUTO) 15.4 % (21.0-51.0); MEAN CORPUSCULAR HEMOGLOBIN 30.9 pg (27.0-33.0); MEAN CORPUSCULAR VOLUME 96.6 fL (79-99); MONOCYTES # (AUTO) 0.6 K/uL (0.1-1.0); MONOCYTES % (AUTO) 8.4 % (3.0-13.0); NEUTROPHILS # (AUTO) 4.6 K/uL (1.8-7.7); NEUTROPHILS % (AUTO) 70.1 % (40.0-77.0); PLATELET COUNT (AUTO) 247 K/uL (130-400); RED BLOOD CELL COUNT(AUTO) 4.08 MIL/uL (4.00-5.50); RED CELL DISTRIBUTION WIDTH 17.2 % (11.0-15.5); WHITE BLOOD COUNT (AUTO) 6.6 K/uL (4.8-10.8)
[2023-10-10 21:29] LABS: B-TYPE NATRIURETIC PEPTIDE 95 pg/mL (0-100)
[2023-10-10 21:34] LABS: CREATININE 0.7 mg/dL (0.5-1.5); POTASSIUM 3.3 mmol/L (3.5-5.1)
[2023-10-10 21:41] LABS: ALBUMIN 3.1 g/dL (3.5-5.0); BILIRUBIN,TOTAL 0.4 mg/dL (0.2-1.0); TOTAL PROTEIN, SERUM 6.7 g/dL (6.0-8.3)
[2023-10-10 21:51] LABS: SARS-CoV-2, RNA, NAAT NEGATIVE SARS CoV-2 (NEGATIVE)
[2023-10-10 23:18] VITALS: BP 158/78; PULSE 89; RESP 18; O2SAT 97
[2023-10-10 23:28] LABS: APPEARANCE,URINE CLOUDY (CLEAR); BILIRUBIN,URINE NEGATIVE (NEGATIVE); COLOR,URINE YELLOW (YELLOW); GLUCOSE, URINE (UA) TRACE mg/dL (NEGATIVE); KETONES,URINE 5 mg/dL (NEGATIVE); LEUKOCYTE ESTERASE ,URINE NEGATIVE Leu/uL (NEGATIVE); NITRATE,URINE NEGATIVE (NEGATIVE); OCCULT BLOOD,URINE NEGATIVE (NEGATIVE); PH,URINE 5.5 (5.0-8.0); PROTEIN,URINE 20 mg/dL (NEGATIVE); UROBILINOGEN,URINE 0.2 mg/dL (0.2-1.0)
[2023-10-10 23:29] LABS: ADD UA MICROSCOPIC YES
[2023-10-10 23:32] LABS: BACTERIA,URINE RARE /HPF (None Seen); MUCUS,URINE FEW LPF (None Seen); OTHER CASTS, URINE 1 /LPF (None Seen); RBC,URINE 0-1 /HPF (0-1); SQUAMOUS EPITHELIAL CELL,UR RARE /HPF (0-2)
[2023-10-10] MEDS ORDERED: DOXY100C5 PO (23:54)
[2023-10-11] VITALS: TEMP 98.9
== END 2023-10-11 00:14 | disposition home or self-care (01) ==
LOC: EDH 19:24
DX: J01.90 Acute sinusitis, unspecified (principal); E11.9 Type 2 diabetes mellitus without complications; E78.00 Pure hypercholesterolemia, unspecified; R56.9 Unspecified convulsions; F02.80 Dementia in other diseases classified elsewhere, unspecified severity, without behavioral disturbance, psychotic disturbance, mood disturbance, and anxiety; Z20.822 Contact with and (suspected) exposure to COVID-19; Z79.82 Long term (current) use of aspirin; Z79.899 Other long term (current) drug therapy; Z98.890 Other specified postprocedural states; Z90.710 Acquired absence of both cervix and uterus; Z88.5 Allergy status to narcotic agent; Z88.8 Allergy status to other drugs, medicaments and biological substances
CPT/HCPCS: 36415; 71045; 80053; 81001; 82550; 83605; 83880; 84484; 85025; 87040; 87635; 87880; 93005

== ENCOUNTER 2023-10-16 18:47 | Emergency (ER) | payer OTHER ==
[~2023-10-16] VITALS: Ht 154.9 cm; Wt 54.0 kg
[~2023-10-16 18:47] MED LIST changes: +DOXY100C5 PO
[2023-10-16 19:15] LABS: RAPID GROUP A STREP negative (NEGATIVE); SARS-CoV-2, RNA, NAAT POSITIVE SARS CoV-2 (NEGATIVE)
[2023-10-16 19:25] LABS: INFLUENZA TYPE A Negative For Type A (NEGATIVE); INFLUENZA TYPE B Negative For Type B (NEGATIVE)
[2023-10-16] MEDS ORDERED: IBUPROFEN 600 MG TABLET ONE (21:34)
[2023-10-16] MEDS ORDERED: IBUPROFEN 600 MG TABLET PO STA (21:38)
[2023-10-16] MEDS ORDERED: IBUP-1493 PO (21:54)
[2023-10-16] MEDS ORDERED: ONDA-104 PO (21:54)
[2023-10-16 21:55] VITALS: TEMP 99.9
[2023-10-16] MEDS ORDERED: ONDANSETRON ODT 4MG TAB SL ONE (22:00)
[2023-10-16] MEDS ORDERED: ALBU90AE2 IH (22:05)
[2023-10-16 22:30] VITALS: BP 124/75; PULSE 74; RESP 18; O2SAT 96
== END 2023-10-16 22:38 | disposition home or self-care (01) ==
LOC: EDH 18:47
DX: U07.1 COVID-19 (principal); I25.10 Atherosclerotic heart disease of native coronary artery without angina pectoris; E11.9 Type 2 diabetes mellitus without complications; E78.00 Pure hypercholesterolemia, unspecified; F03.90 Unspecified dementia, unspecified severity, without behavioral disturbance, psychotic disturbance, mood disturbance, and anxiety; Z79.1 Long term (current) use of non-steroidal anti-inflammatories (NSAID); Z79.82 Long term (current) use of aspirin; Z79.84 Long term (current) use of oral hypoglycemic drugs; Z79.899 Other long term (current) drug therapy; Z88.5 Allergy status to narcotic agent; Z88.8 Allergy status to other drugs, medicaments and biological substances; Z90.710 Acquired absence of both cervix and uterus; Z91.041 Radiographic dye allergy status; Z95.5 Presence of coronary angioplasty implant and graft
CPT/HCPCS: 71045; 87635; 87804; 87880; 93005

== ENCOUNTER 2023-11-07 10:29 | Emergency (ER) | payer OTHER ==
[~2023-11-07] VITALS: Ht 154.9 cm; Wt 55.3 kg
[~2023-11-07 10:29] MED LIST changes: -ACET-66 PO; +ALBU90AE2 IH; -AMOX-426 PO; +IBUP-1493 PO; -TRAM50TA4 PO
[2023-11-07 11:32] LABS: APPEARANCE,URINE CLEAR (CLEAR); BILIRUBIN,URINE NEGATIVE (NEGATIVE); COLOR,URINE LIGHT-YELLOW (YELLOW); GLUCOSE, URINE (UA) 500 mg/dL (NEGATIVE); KETONES,URINE 10 mg/dL (NEGATIVE); LEUKOCYTE ESTERASE ,URINE NEGATIVE Leu/uL (NEGATIVE); NITRATE,URINE NEGATIVE (NEGATIVE); OCCULT BLOOD,URINE NEGATIVE (NEGATIVE); PROTEIN,URINE NEGATIVE (NEGATIVE); UROBILINOGEN,URINE 0.2 mg/dL (0.2-1.0)
[2023-11-07 11:39] LABS: ADD UA MICROSCOPIC YES
[2023-11-07 11:40] LABS: MUCUS,URINE RARE LPF (None Seen); RBC,URINE 0-1 /HPF (0-1); WBC,URINE 0-1 /HPF (0-1)
[2023-11-07 13:24] LABS: BASOPHILS # (AUTO) 0.04 K/uL (0.00-0.20); BASOPHILS % (AUTO) 0.5 % (0.0-5.0); EOSINOPHILS # (AUTO) 0.65 K/uL (0.00-0.70); EOSINOPHILS % (AUTO) 8.4 % (0.0-8.0); HEMATOCRIT 39.6 % (36-48); IMMATURE GRANULOCYTE ABSOLUTE 0.01 K/uL (0-1); LYMPHOCYTES # (AUTO) 1.7 K/uL (1.0-4.8); LYMPHOCYTES % (AUTO) 21.4 % (21.0-51.0); MEAN CORPUSCULAR HEMOGLOBIN 31.3 pg (27.0-33.0); MEAN CORPUSCULAR HGB CONC 32.1 g/dL (32.0-36.0); MEAN CORPUSCULAR VOLUME 97.5 fL (79-99); MONOCYTES # (AUTO) 0.5 K/uL (0.1-1.0); NEUTROPHILS # (AUTO) 4.8 K/uL (1.8-7.7); NEUTROPHILS % (AUTO) 62.6 % (40.0-77.0); PLATELET COUNT (AUTO) 196 K/uL (130-400); RED BLOOD CELL COUNT(AUTO) 4.06 MIL/uL (4.00-5.50); RED CELL DISTRIBUTION WIDTH 15.5 % (11.0-15.5); WHITE BLOOD COUNT (AUTO) 7.7 K/uL (4.8-10.8)
[2023-11-07 13:37] LABS: CREATININE 0.5 mg/dL (0.5-1.5); POTASSIUM 4.2 mmol/L (3.5-5.1)
[2023-11-07 13:42] LABS: ALBUMIN 3.1 g/dL (3.5-5.0); BILIRUBIN,TOTAL 0.3 mg/dL (0.2-1.0); TOTAL PROTEIN, SERUM 6.4 g/dL (6.0-8.3)
[2023-11-07 14:52] VITALS: BP 169/46; PULSE 81; RESP 16; O2SAT 94
== END 2023-11-07 15:37 | disposition home or self-care (01) ==
LOC: EDH 10:29
DX: F03.90 Unspecified dementia, unspecified severity, without behavioral disturbance, psychotic disturbance, mood disturbance, and anxiety (principal); E11.65 Type 2 diabetes mellitus with hyperglycemia; E86.0 Dehydration
CPT/HCPCS: 36415; 70450; 80053; 81001; 83605; 85025; 87040

== ENCOUNTER 2023-11-10 18:29 | Emergency (ER) | payer OTHER ==
[~2023-11-10] VITALS: Ht 157.5 cm; Wt 68.0 kg
[2023-11-10 18:30] VITALS: BP 141/56; PULSE 74; RESP 16
[2023-11-10 21:09] LABS: BASOPHILS # (AUTO) 0.02 K/uL (0.00-0.20); BASOPHILS % (AUTO) 0.3 % (0.0-5.0); EOSINOPHILS # (AUTO) 0.49 K/uL (0.00-0.70); EOSINOPHILS % (AUTO) 6.6 % (0.0-8.0); HEMATOCRIT 35.8 % (36-48); IMMATURE GRANULOCYTE ABSOLUTE 0.02 K/uL (0-1); LYMPHOCYTES # (AUTO) 1.9 K/uL (1.0-4.8); LYMPHOCYTES % (AUTO) 25.1 % (21.0-51.0); MEAN CORPUSCULAR HEMOGLOBIN 31.3 pg (27.0-33.0); MEAN CORPUSCULAR HGB CONC 32.1 g/dL (32.0-36.0); MEAN CORPUSCULAR VOLUME 97.5 fL (79-99); MONOCYTES # (AUTO) 0.5 K/uL (0.1-1.0); MONOCYTES % (AUTO) 6.6 % (3.0-13.0); NEUTROPHILS # (AUTO) 4.6 K/uL (1.8-7.7); NEUTROPHILS % (AUTO) 61.1 % (40.0-77.0); PLATELET COUNT (AUTO) 203 K/uL (130-400); RED BLOOD CELL COUNT(AUTO) 3.67 MIL/uL (4.00-5.50); RED CELL DISTRIBUTION WIDTH 15.5 % (11.0-15.5); WHITE BLOOD COUNT (AUTO) 7.5 K/uL (4.8-10.8)
[2023-11-10 21:17] LABS: CREATININE 0.7 mg/dL (0.5-1.5); POTASSIUM 3.8 mmol/L (3.5-5.1)
[2023-11-10 21:22] LABS: ALBUMIN 2.8 g/dL (3.5-5.0); BILIRUBIN,TOTAL 0.2 mg/dL (0.2-1.0); TOTAL PROTEIN, SERUM 5.7 g/dL (6.0-8.3)
[2023-11-10 22:53] LABS: APPEARANCE,URINE CLEAR (CLEAR); BILIRUBIN,URINE NEGATIVE (NEGATIVE); COLOR,URINE LIGHT-YELLOW (YELLOW); GLUCOSE, URINE (UA) NEGATIVE (NEGATIVE); KETONES,URINE NEGATIVE (NEGATIVE); LEUKOCYTE ESTERASE ,URINE NEGATIVE Leu/uL (NEGATIVE); NITRATE,URINE NEGATIVE (NEGATIVE); OCCULT BLOOD,URINE NEGATIVE (NEGATIVE); PH,URINE 5.5 (5.0-8.0); PROTEIN,URINE NEGATIVE (NEGATIVE); UROBILINOGEN,URINE 0.2 mg/dL (0.2-1.0)
[2023-11-10 22:56] LABS: ADD UA MICROSCOPIC NO
[2023-11-11] MEDS ORDERED: LEVOFLOXACIN 500 MG TABLET PO SCH (00:30)
[2023-11-11] MEDS ORDERED: LEVO-70 PO (00:31)
== END 2023-11-11 01:20 | disposition home or self-care (01) ==
LOC: EDH 18:29
DX: J20.9 Acute bronchitis, unspecified (principal); E11.65 Type 2 diabetes mellitus with hyperglycemia; G89.29 Other chronic pain; M54.6 Pain in thoracic spine; Z88.5 Allergy status to narcotic agent; Z88.8 Allergy status to other drugs, medicaments and biological substances; F03.90 Unspecified dementia, unspecified severity, without behavioral disturbance, psychotic disturbance, mood disturbance, and anxiety; Z90.710 Acquired absence of both cervix and uterus; Z79.899 Other long term (current) drug therapy
CPT/HCPCS: 36415; 71045; 72070; 80053; 81003; 85025

== ENCOUNTER → 2024-01-09 | Outpatient (CLI) | payer OTHER ==
[~2024-01-09] MED LIST changes: +LEVO-70 PO
[2024-01-09 10:11] LABS: BASOPHILS # (AUTO) 0.07 K/uL (0.00-0.20); BASOPHILS % (AUTO) 0.9 % (0.0-5.0); EOSINOPHILS # (AUTO) 1.87 K/uL (0.00-0.70); HEMATOCRIT 39.9 % (36-48); IMMATURE GRANULOCYTE ABSOLUTE 0.01 K/uL (0-1); LYMPHOCYTES # (AUTO) 1.7 K/uL (1.0-4.8); LYMPHOCYTES % (AUTO) 22.2 % (21.0-51.0); MEAN CORPUSCULAR HEMOGLOBIN 31.9 pg (27.0-33.0); MEAN CORPUSCULAR HGB CONC 32.1 g/dL (32.0-36.0); MEAN CORPUSCULAR VOLUME 99.5 fL (79-99); MONOCYTES # (AUTO) 0.5 K/uL (0.1-1.0); NEUTROPHILS # (AUTO) 3.4 K/uL (1.8-7.7); NEUTROPHILS % (AUTO) 44.8 % (40.0-77.0); PLATELET COUNT (AUTO) 265 K/uL (130-400); RED BLOOD CELL COUNT(AUTO) 4.01 MIL/uL (4.00-5.50); RED CELL DISTRIBUTION WIDTH 14.3 % (11.0-15.5); WHITE BLOOD COUNT (AUTO) 7.5 K/uL (4.8-10.8)
[2024-01-09 11:01] LABS: ALBUMIN 3.2 g/dL (3.5-5.0); BILIRUBIN,TOTAL 0.3 mg/dL (0.2-1.0); CREATININE 0.6 mg/dL (0.5-1.0); POTASSIUM 4.3 mmol/L (3.5-5.1); THYROID STIMULATING HORMONE 3.55 uIU/mL (0.36-3.74); TOTAL PROTEIN, SERUM 6.7 g/dL (6.0-8.3)
[2024-01-09 12:40] LABS: HEMOGLOBIN A1C 7.3 % (4.0-6.0)
== END | disposition home or self-care (01) ==
LOC: RAH 09:24
PROVIDERS: ATTEND Family Medicine
DX: M47.812 Spondylosis without myelopathy or radiculopathy, cervical region (principal); E11.9 Type 2 diabetes mellitus without complications; M54.9 Dorsalgia, unspecified; G40.909 Epilepsy, unspecified, not intractable, without status epilepticus; M25.561 Pain in right knee; M43.8X6 Other specified deforming dorsopathies, lumbar region
CPT/HCPCS: 36415; 72040; 72070; 72100; 73562; 80053; 80061; 83036; 84443; 85025

== ENCOUNTER → 2024-04-14 | Outpatient (CLI) | payer OTHER ==
[~2024-04-14] MED LIST changes: +AEC81 PO; -ALBU90AE2 IH; -ASPI-1197 PO; -CALC-744 PO; -CEFP200T14 PO; -CHOL200013 PO; -CITA-107 PO; +CITA10TA13 PO; -CYAN-52 PO; -DONE10TA43 PO; +DONE5TAB33 PO; -DOXY100C5 PO; +FAMO40TA7 PO; -FURO20TA4 PO; +HYDR-4068 PO; -IBUP-1493 PO; -LEVO-70 PO; -LEVO25TA9 PO; -MELA10TA2 PO; +OMEP-420 PO; -OMEP40CA21 PO; -ONDA-104 PO; +ONDA-243 PO; -POLY30DR OP; +RAME8TAB24 PO; -ROSU10TA28 PO; -SITA100T12 PO
== END | disposition home or self-care (01) ==
LOC: SHCH 15:25
PROVIDERS: ATTEND Student in an Organized Health Care Education/Training Program
DX: I25.10 Atherosclerotic heart disease of native coronary artery without angina pectoris (principal); I87.2 Venous insufficiency (chronic) (peripheral); I10 Essential (primary) hypertension; E78.5 Hyperlipidemia, unspecified; R60.0 Localized edema; R07.9 Chest pain, unspecified
CPT/HCPCS: 93970

== ENCOUNTER 2024-11-08 12:49 | Emergency (ER) | payer OTHER, MEDICARE ==
[~2024-11-08] VITALS: Ht 152.4 cm; Wt 54.0 kg
[2024-11-08 13:39] LABS: BASOPHILS # (AUTO) 0.04 K/uL (0.00-0.20); BASOPHILS % (AUTO) 0.7 % (0.0-5.0); EOSINOPHILS # (AUTO) 0.45 K/uL (0.00-0.70); HEMATOCRIT 37.4 % (36-48); IMMATURE GRANULOCYTE ABSOLUTE 0.01 K/uL (0-1); LYMPHOCYTES # (AUTO) 1.6 K/uL (1.0-4.8); LYMPHOCYTES % (AUTO) 27.8 % (21.0-51.0); MEAN CORPUSCULAR HEMOGLOBIN 31.3 pg (27.0-33.0); MEAN CORPUSCULAR HGB CONC 31.3 g/dL (32.0-36.0); MONOCYTES # (AUTO) 0.4 K/uL (0.1-1.0); MONOCYTES % (AUTO) 6.7 % (3.0-13.0); NEUTROPHILS # (AUTO) 3.2 K/uL (1.8-7.7); NEUTROPHILS % (AUTO) 56.6 % (40.0-77.0); PLATELET COUNT (AUTO) 202 K/uL (130-400); RED BLOOD CELL COUNT(AUTO) 3.74 MIL/uL (4.00-5.50); RED CELL DISTRIBUTION WIDTH 14.2 % (11.0-15.5); WHITE BLOOD COUNT (AUTO) 5.7 K/uL (4.8-10.8)
[2024-11-08 13:47] LABS: INR 0.96 (0.85-1.15); PROTHROMBIN TIME 10.8 SEC (9.6-11.6)
[2024-11-08 13:49] LABS: PARTIAL THROMBOPLASTIN TIME 25.6 SEC (26.3-35.5)
[2024-11-08 13:50] LABS: CREATININE 0.6 mg/dL (0.5-1.0); POTASSIUM 4.5 mmol/L (3.5-5.1)
[2024-11-08 13:54] LABS: MAGNESIUM 1.7 mg/dL (1.80-2.40)
[2024-11-08 14:11] LABS: B-TYPE NATRIURETIC PEPTIDE 122 pg/mL (0-100)
[2024-11-08 14:54] LABS: APPEARANCE,URINE CLEAR (CLEAR); BILIRUBIN,URINE NEGATIVE (NEGATIVE); COLOR,URINE COLORLESS (YELLOW); GLUCOSE, URINE (UA) NEGATIVE (NEGATIVE); KETONES,URINE NEGATIVE (NEGATIVE); LEUKOCYTE ESTERASE ,URINE NEGATIVE Leu/uL (NEGATIVE); NITRATE,URINE NEGATIVE (NEGATIVE); OCCULT BLOOD,URINE NEGATIVE (NEGATIVE); PH,URINE 5.5 (5.0-8.0); PROTEIN,URINE NEGATIVE (NEGATIVE); UROBILINOGEN,URINE 0.2 mg/dL (0.2-1.0)
[2024-11-08 14:59] LABS: ADD UA MICROSCOPIC NO
--- NOTE | 2024-11-08 15:18 | HMCIMG ---
CHEST 1VW HISTORY: Status post fall COMPARISON: 01/13/2024 FINDINGS: A frontal projection of the chest was obtained. Mild bilateral pulmonary infiltrates are seen may be related to mild pulmonary vascular congestion with possible superimposed pneumonitis. The heart is borderline enlarged. Degenerative changes are seen. No evidence of aortic calcification is seen. IMPRESSION: 1. Mild bilateral pulmonary infiltrates are seen may be related to mild pulmonary vascular congestion with possible superimposed pneumonitis.
--- NOTE | 2024-11-08 16:25 | HMCIMG ---
CT HEAD/BRAIN W/O CONTRAST HISTORY: Status post fall COMPARISON: 11/07/2023 TECHNIQUE: Multiple sequential axial images of the head were obtained from the base of the skull through vertex. Patient was not given contrast through intravenous route. FINDINGS: The ventricles and extraventricular CSF spaces are dilated consistent with cerebral atrophy. Nonspecific white matter changes seen. There is atherosclerosis with vascular calcifications. Subtle bilateral basal ganglia calcifications are seen. There are also bilateral falx calcifications. There is no midline shift, mass effect or herniation. No acute intracranial bleed is seen. Visualized portion of the paranasal sinuses are grossly within normal limits. IMPRESSION: 1. No acute intracranial bleed is seen. 2. Atrophy with white matter changes. CT was performed with one or more following dose reduction techniques: automated exposure control, adjustment of the mA and kv according to patient's size, or use of a iterative reconstruction technique.
--- NOTE | 2024-11-08 16:28 | HMCIMG ---
CT ORB/DINESH/EAR W/O CONTRAST HISTORY: Status post fall COMPARISON: None TECHNIQUE: Multiple sequential high-resolution axial images of the paranasal sinuses were obtained. Postprocessing sagittal and coronal reconstruction images were also obtained. Patient was not given contrast through intravenous route. FINDINGS: No acute displaced fracture is seen. No evidence of mucoperiosteal thickening or air-fluid level is seen of the paranasal sinuses. Extraocular muscles are intact. No evidence of intraconal or extraconal mass is seen. IMPRESSION: 1. No acute displaced fracture is seen. CT was performed with one or more following dose reduction techniques: automated exposure control, adjustment of the mA and kv according to patient's size, or use of a iterative reconstruction technique.
--- NOTE | 2024-11-08 16:36 | ERN ---
General Chief Complaint: Mechanical Fall Stated Complaint: FALL Time Seen by MD: 12:51 Source: patient History of Present Illness Initial Comments PATIENT IS A 84-YEAR-OLD FEMALE COMING IN TO BE EVALUATED AFTER SHE HAD A MECHANICAL FALL. PER PATIENT SHE STATES HE WAS AMBULATING AND TRIPPED WITH A CHAIR LANDING ON HER RIGHT SIDE OF THE FACE. SHE STATES HE DID NOT NOT LOSE CONSCIOUSNESS BUT IS COMPLAINING OF RIGHT-SIDED FACIAL PAIN. Allergies: Coded Allergies: Propoxyphene HCl (Verified Allergy, Unknown, 06/13/22) Propoxyphene Napsyl (Verified Allergy, Unknown, 06/13/22) acetaminophen (Unverified Allergy, Unknown, 01/13/24) iodine (Verified Allergy, Unknown, 06/13/22) morphine (Verified Allergy, Unknown, 06/13/22) Home Meds Reported Medications Ondansetron (Ondansetron Odt) 4 Mg Tab.rapdis, 4 MG PO TID PRN for VOMITING, TAB 01/13/24 Famotidine (Famotidine) 40 Mg Tablet, 40 MG PO HS, TAB 01/13/24 Ramelteon (Ramelteon) 8 Mg Tablet, 8 MG PO HS PRN for SLEEP, TAB 01/13/24 Hydrocodone/Acetaminophen (Hydrocodon-Acetaminophn 10-325) 10 Mg-325 Mg Tablet, 1 EACH PO [id number] PRN for PAIN, TAB 01/13/24 Omeprazole (Omeprazole) 20 Mg Tab.rap.dr, 20 MG PO DAILY 01/13/24 Aspirin (ASPIRIN 81 MG ECTAB) 81 Mg Ectab, 81 MG PO HS, TAB.EC 01/13/24 Citalopram Hydrobromide (Celexa) 10 Mg Tablet, 10 MG PO DAILY, TAB 01/13/24 Donepezil HCl (Donepezil HCl) 5 Mg Tablet, 5 MG PO DAILY, TAB 01/13/24 Pioglitazone HCl (Pioglitazone HCl) 30 Mg Tablet, 30 MG PO DAILY, TAB 06/17/23 Nitroglycerin (Nitroglycerin) 0.4 Mg Tab.subl, 0.4 MG SL AD PRN for CHEST PAIN, TAB.SL 06/17/23 Lacosamide (Vimpat) 50 Mg Tablet, 50 MG PO BID, TAB 06/17/23 Gabapentin (Gabapentin) 100 Mg Capsule, 100 MG PO TID, CAP 12/23/22 Past Medical History Past Medical History: Diabetes-Type II, Seizure Medical History Other: DEMENTIA Past Surgical History: None Surgical History Other: EYE SURGERY, BACK SURGERY Family History Family History: HTN Social History Social History: Negative, Lives with family, Other Female( History) History: Not Applicable ROS Dictation CONSTITUTIONAL: NO CHILLS, NO FEVER, NO WEAKNESS, NO DIAPHORESIS, NO MALAISE. HEAD/FACE: SIGNS OF TRAUMA. EENT: NO EYE PAIN, NO BLURRED VISION, NO TEARING, NO DOUBLE VISION, NO EAR PAIN, NO EAR DISCHARGE, NO NOSE PAIN, NO NASAL CONGESTION, NO THROAT PAIN, NO THROAT SWELLING, NO MOUTH PAIN. RESPIRATORY: NO COUGH, NO ORTHOPNEA, NO SOB, NO STRIDOR, NO WHEEZING. CARDIOVASCULAR: NO CHEST PAIN, NO EDEMA, NO PALPITATIONS, NO SYNCOPE. GASTROINTESTINAL/ABDOMINAL: NO ABDOMINAL PAIN, NO CONSTIPATION, NO DIARRHEA, NO NAUSEA, NO VOMITING. GENITOURINARY: NO ABNORMAL DISCHARGE, NO DYSURIA, NO FREQUENT URINATION, NO HEMATURIA. NO COMPLAINTS OF PAIN IN THE GENITALS. MUSCULOSKELETAL: NO BACK PAIN, NO GOUT, NO JOINT PAIN, NO JOINT SWELLING, NO MUSCLE PAIN, NO MUSCLE STIFFNESS, NO NECK PAIN. INTEGUMENTARY: NO CHANGE IN COLOR, NO CHANGE IN HAIR/NAILS, NO DRYNESS, NO LESION, NO LUMPS, NO RASH. NEUROLOGICAL/PSYCH: NO ANXIETY, NOT DEPRESSED, NO EMOTIONAL PROBLEM, NO HEADACHE, NO NUMBNESS, NO PRE-EXISTING DEFICIT, NO HISTORY OF SEIZURES, NO TREMORS, NO WEAKNESS. HEMATOLOGIC/LYMPHATIC: NOT ANEMIC, NO HISTORY OF BLOOD CLOTS, NO APPARENT BLEEDING, NO BRUISING, GLANDS NOT SWOLLEN. ALL SYSTEMS NEGATIVE, EXCEPT NOTED. Physical Exam Physical Exam Dictation VITAL SIGNS: REVIEWED. GENERAL APPEARANCE: ALERT, ORIENTED X3, NO ACUTE DISTRESS, OBESE. HEAD AND FACE: NON-TRAUMATIC. RIGHT FACIAL TRAUMA. EYES: PERRL, PINK CONJUNCTIVAS, EYELID NO TRAUMA, ANTERIOR CHAMBER CLEAR. EARS: PINNAS INTACT AND NO SIGNS OF TRAUMA OR ERYTHEMA. EAR CANALS CLEAR AND NO DISCHARGE. TMS NO ERYTHEMA. NOSE: NO DISCHARGE, NO BLEEDING. OROPHARYNX: MOUTH NORMAL, TEETH NO CARIES, TONGUE PINK. PHARYNX CLEAR, NO ERYTHEMA. TONSILS NO EXUDATES, NO ABSCESSES NOTED. MUCOUS MEMBRANE MOIST. NECK: SUPPLE, NON-TENDER, NO THYROMEGALY, NO MASSES, NO JVD, NO BRUITS. BREAST: DEFERRED. CHEST: NO TENDERNESS, NO CREPITUS, NO PARADOXICAL MOVEMENT, NO RETRACTIONS. LUNGS: CLEAR, WELL-VENTILATED, SYMMETRIC, NO RALES, NO WHEEZING, NO RHONCHI, NO STRIDOR, GOOD BREATH SOUNDS BILATERALLY. HEART: REGULAR RATE, REGULAR RHYTHM, NO MURMUR, NO GALLOPS. VASCULAR: NO PERIPHERAL EDEMA. ABDOMEN: SOFT, POSITIVE BOWEL SOUNDS, NONDISTENDED, NO GUARDING, NONTENDER, NO REBOUND, NO MASSES NO HEPATOMEGALY, NO SPLENOMEGALY, NO TERRY'S SIGN, NO HERNIAS. RECTAL: DEFERRED. GENITAL: DEFERRED. NEUROLOGICAL: NORMAL SPEECH, GROSS MOTOR FUNCTION INTACT, GROSS SENSORY FUNCTION INTACT. MUSCULOSKELETAL: NECK NONTENDER, FULL RANGE OF MOTION, BACK NONTENDER, FULL RANGE OF MOTION. EXTREMITIES: NONTENDER, FULL RANGE OF MOTION. SKIN: COLOR PINK, DRY, NO TURGOR, NO RASH, NO LACERATIONS, NO ABRASIONS, NO CONTUSIONS. LYMPHATICS: DEFERRED. Results Laboratory and Microbiology Lab and Micro Result Laboratory Tests Test 11/08/24 13:28 11/08/24 14:27 White Blood Count 5.7 K/uL (4.8-10.8) Red Blood Count 3.74 MIL/uL (4.00-5.50) L Hemoglobin 11.7 g/dL (12.0-16.0) L Hematocrit 37.4 % (36-48) Mean Corpuscular Volume 100.0 fL (79-99) H Mean Corpuscular Hemoglobin 31.3 pg (27.0-33.0) Mean Corpuscular Hemoglobin Concent 31.3 g/dL (32.0-36.0) L Red Cell Distribution Width 14.2 % (11.0-15.5) Platelet Count 202 K/uL (130-400) Mean Platelet Volume 10.9 fL (7.5-10.5) H Immature Granulocyte % (Auto) 0.2 % (0-1) Neutrophils (%) (Auto) 56.6 % (40.0-77.0) Lymphocytes (%) (Auto) 27.8 % (21.0-51.0) Monocytes (%) (Auto) 6.7 % (3.0-13.0) Eosinophils (%) (Auto) 8.0 % (0.0-8.0) Basophils (%) (Auto) 0.7 % (0.0-5.0) Neutrophils # (Auto) 3.2 K/uL (1.8-7.7) Lymphocytes # (Auto) 1.6 K/uL (1.0-4.8) Monocytes # (Auto) 0.4 K/uL (0.1-1.0) Eosinophils # (Auto) 0.45 K/uL (0.00-0.70) Basophils # (Auto) 0.04 K/uL (0.00-0.20) Absolute Immature Granulocyte (auto 0.01 K/uL (0-1) Nucleated Red Blood Cells 0.0 % (0.0-0.19) Prothrombin Time 10.8 SEC (9.6-11.6) Prothromb Time International Ratio 0.96 (0.85-1.15) Activated Partial Thromboplast Time 25.6 SEC (26.3-35.5) L Sodium Level 145 mmol/L (136-145) Potassium Level 4.5 mmol/L (3.5-5.1) Chloride Level 107 mmol/L (101-111) Carbon Dioxide Level 34 mmol/L (21-32) H Blood Urea Nitrogen 21 mg/dL (7-18) H Creatinine 0.6 mg/dL (0.5-1.0) Glomerular Filtration Rate Calc 89 mL/min (>90) Random Glucose 120 mg/dL (70-105) H Total Calcium 8.9 mg/dL (8.5-10.1) Magnesium Level 1.70 mg/dL (1.80-2.40) L Total Creatine Kinase 116 U/L (21-232) Troponin I High Sensitivity 6 ng/L (4-50) B-Type Natriuretic Peptide 122 pg/mL (0-100) H Urine Color COLORLESS (YELLOW) Urine Appearance CLEAR (CLEAR) Urine pH 5.5 (5.0-8.0) Urine Specific [place] 1.007 (1.001-1.031) Urine Protein NEGATIVE mg/dL (NEGATIVE) Urine Glucose (UA) NEGATIVE mg/dL (NEGATIVE) Urine Ketones NEGATIVE mg/dL (NEGATIVE) Urine Occult Blood NEGATIVE (NEGATIVE) Urine Nitrate NEGATIVE (NEGATIVE) Urine Bilirubin NEGATIVE mg/dL (NEGATIVE) Urine Urobilinogen 0.2 mg/dL (0.2-1.0) Urine Leukocyte Esterase NEGATIVE Kami/uL Labs Reviewed?: Yes EKG/XRAY/US/CT/MRI EKG Comment 11/08/2024 TIME 1:49 P.M. VENTRICULAR RATE 55 SINUS RHYTHM MS [address] WAVE ELEVATION OR DEPRESSION X-RAY Comment [address] [place] [id number] IMAGING REPORT Signed PATIENT: NADIR ORTIZ MR#: [id number] : 1940 SEX: F AGE: 84 LOCATION: [facility] ORDER 1253 STATUS: REG ER REPORT#: [id number] SERVICE 125 REASON: FALL ORDERING PHYSICIAN: JAEL LEI MD PROCEDURE: CXR1VW - CHEST 1VW CHEST 1VW HISTORY: Status post fall COMPARISON: 01/13/2024 FINDINGS: A frontal projection of the chest was obtained. Mild bilateral pulmonary infiltrates are seen may be related to mild pulmonary vascular congestion with possible superimposed pneumonitis. The heart is borderline enlarged. Degenerative changes are seen. No evidence of aortic calcification is seen. IMPRESSION: 1. Mild bilateral pulmonary infiltrates are seen may be related to mild pulmonary vascular congestion with possible superimposed pneumonitis. DICTATED BY: DHRUV LOCKWOOD MD DATE: 11/08/241514 ELECTRONICALLY SIGNED BY: DHRUV LOCKWOOD MD DATE: 11/08/241 CT Scan Comment [facility] [address] [id number] IMAGING REPORT Signed PATIENT: NADIR ORTIZ MR#: [id number] : 1940 SEX: F AGE: 84 LOCATION: [facility] ORDER 1524 STATUS: REG ER REPORT#: [id number] SERVICE 1529 REASON: FALL ORDERING PHYSICIAN: JAEL LEI MD PROCEDURE: ORB IAC WO - CT ORB/BAMBI/EAR W/O CONTRAST CT ORB/BAMBI/EAR W/O CONTRAST HISTORY: Status post fall COMPARISON: None TECHNIQUE: Multiple sequential high-resolution axial images of the paranasal sinuses were obtained. Postprocessing sagittal and coronal reconstruction images were also obtained. Patient was not given contrast through intravenous route. FINDINGS: No acute displaced fracture is seen. No evidence of mucoperiosteal thickening or air-fluid level is seen of the paranasal sinuses. Extraocular muscles are intact. No evidence of intraconal or extraconal mass is seen. IMPRESSION: 1. No acute displaced fracture is seen. CT was performed with one or more following dose reduction techniques: automated exposure control, adjustment of the mA and kv according to patient's size, or use of a iterative reconstruction technique. DICTATED BY: DHRUV LOCKWOOD MD DATE: 11/08/241621 ELECTRONICALLY SIGNED BY: DHRUV LOCKWOOD MD DATE: 11/08/241627 [address] [address] IMAGING REPORT Signed PATIENT: NADIR ORTIZ MR#: [id number] : 1940 SEX: F AGE: 84 LOCATION: [facility] ORDER 23 [facility]US: [facility] REPORT#: [id number] SERVICE 23 REASON: FALL ORDERING PHYSICIAN: JAEL LEI MD PROCEDURE: HEAD WO - CT HEAD/BRAIN W/O CONTRAST CT HEAD/BRAIN W/O CONTRAST HISTORY: Status post fall COMPARISON: 11/07/2023 TECHNIQUE: Multiple sequential axial images of the head were obtained from the base of the skull through vertex. Patient was not given contrast through intravenous route. FINDINGS: The ventricles and extraventricular CSF spaces are dilated consistent with cerebral atrophy. Nonspecific white matter changes seen. There is atherosclerosis with vascular calcifications. Subtle bilateral basal ganglia calcifications are seen. There are also bilateral falx calcifications. There is no midline shift, mass effect or herniation. No acute intracranial bleed is seen. Visualized portion of the paranasal sinuses are grossly within normal limits. IMPRESSION: 1. No acute intracranial bleed is seen. 2. Atrophy with white matter changes. CT was performed with one or more following dose reduction techniques: automated exposure control, adjustment of the mA and kv according to patient's size, or use of a iterative reconstruction technique. DICTATED BY: DHRUV LOCKWOOD MD DATE: 11/08/241619 ELECTRONICALLY SIGNED BY: DHRUV LOCKWOOD MD DATE: 11/08/24 162 MDM MDM: DIFFERENTIAL DIAGNOSIS: MECHANICAL FALL, FACIAL TRAUMA, ED Course Orders Procedure Category Date Status Time Cbc With Differential LAB 11/08/24 Complete 12:52 Prothrombin Time With LAB 11/08/24 Complete INR 12:52 B-Type Natriuretic LAB 11/08/24 Complete Peptide 12:52 Chest 1vw RAD 11/08/24 Resulted 12:52 12 Lead Ekg Tracing- EKG 11/08/24 Logged Technical 12:52 Magnesium LAB 11/08/24 Complete 12:52 Creatine Kinase, Total LAB 11/08/24 Complete 12:52 Troponin I High LAB 11/08/24 Complete Sensitivity 12:52 Urinalysis Profile LAB 11/08/24 Complete 12:52 Partial LAB 11/08/24 Complete Thromboplastin Time 12:52 Basic Metabolic Panel LAB 11/08/24 Complete 12:52 Ct Orb/Bambi/Ear W/O CT 11/08/24 Resulted Contrast 15:24 Ct Head/Brain W/O CT 11/08/24 Resulted Contrast 15:24 Magnesium 2gm Premix PHA 11/08/24 Complete 50ml (Magnesium 2gm 15:51 Current Medications Medications (Trade) Dose Ordered Sig/Bhavna Route PRN Reason Start Time Stop Time Status Last Admin Dose Admin Magnesium Sulfate 50 ml @ 0 mls/hr PROTOCOL STAT IV 11/08/24 15:51 11/08/24 15:52 DC Vital Signs Date Time Temp Pulse Resp B/P (MAP) Pulse Ox O2 Delivery O2 Flow Rate FiO2 11/08/24 12:50 98.1 55 16 138/82 98 Room Air* 0 21 11/08/24 12:50 98.1 55 16 138/82 98 Room Air 0 DX & DISP Disposition: Discharge Departure Impression: Primary Impression: Fall from ground level Additional Impression: Multiple contusions Condition: Stable Additional Instructions: FOLLOW-UP WITH PRIMARY CARE PROVIDER IN 1 TO 2 DAYS. TAKE MEDICATIONS DIRECTED HERE IN THE EMERGENCY ROOM. OKAY TO CONTINUE HOME MEDICATIONS UNLESS OTHERWISE DISCUSSED DURING YOUR VISIT IN THE EMERGENCY ROOM TODAY. RETURN TO YOUR NEAREST EMERGENCY ROOM IF SYMPTOMS WORSEN OR IF THERE IS NO IMPROVEMENT. CALL 911 IF YOU NEED IMMEDIATE ASSISTANCE. TAKE TYLENOL [id number] NEEDED AND IF NO CONTRAINDICATIONS ARE PRESENT. INCREASE ORAL HYDRATION. A WOUND CULTURE OR URINE CULTURE WAS ORDERED HERE IN THE EMERGENCY ROOM DEPARTMENT PLEASE FOLLOW-UP WITH PRIMARY CARE PROVIDER AND ADVISE THEM TO GET REPEAT PORTS FROM OUR FACILITY. IF YOU HAD ANY MIYA WRAP/SPLINTS THAT WERE APPLIED HERE, PLEASE DO NOT REMOVE THEM UNTIL YOU SEE YOUR PRIMARY CARE OR SPECIALTY. REFERRALS: Referrals: KIM ELLISON MD (PCP) Time of Disposition: 16:36 JAEL LEI MD Nov 08, 2024 16:36
[2024-11-08] MEDS: MAGNESIUM 2GM PREMIX 50ML 50 ML IV STA (17:03)
[2024-11-08 18:08] VITALS: BP 144/53; PULSE 78; RESP 18; TEMP 98; O2SAT 93
--- NOTE | 2024-11-09 06:27 | EKG ---
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
== END 2024-11-08 18:16 | disposition home or self-care (01) ==
LOC: EDH 12:49
DX: S00.83XA Contusion of other part of head, initial encounter (principal); E11.9 Type 2 diabetes mellitus without complications; F03.90 Unspecified dementia, unspecified severity, without behavioral disturbance, psychotic disturbance, mood disturbance, and anxiety; Z79.82 Long term (current) use of aspirin; Z79.84 Long term (current) use of oral hypoglycemic drugs; Z79.899 Other long term (current) drug therapy; Z88.5 Allergy status to narcotic agent; Z88.8 Allergy status to other drugs, medicaments and biological substances; Z91.041 Radiographic dye allergy status; W01.0XXA Fall on same level from slipping, tripping and stumbling without subsequent striking against object, initial encounter; Y93.89 Activity, other specified; Y92.89 Other specified places as the place of occurrence of the external cause; Y99.8 Other external cause status
CPT/HCPCS: 99285; 70450; 96374; 71045; 82550; 83735; 84484; 80048; 83880; 85025; 85610; 85730; 81003; 36415; 93005; 70480; J3475

== ENCOUNTER → 2024-12-20 | Outpatient (CLI) | payer OTHER, MEDICARE ==
[~2024-12-20] MED LIST changes: +IOHEXOL-350 50ML VIAL IV ONE
--- NOTE | 2024-12-20 15:14 | HMCIMG ---
CT CHEST W/WO CONTRAST HISTORY: Pulmonary fibrosis COMPARISON: 06/14/2022 TECHNIQUE: Multiple sequential axial images of the chest were obtained from the thoracic inlet through upper abdomen. Patient was not given contrast through intravenous route. FINDINGS: There is no evidence of pulmonary nodule or parenchymal disease. Interstitial fibrotic changes are seen. Coronary artery calcifications are seen. No pleural effusion or pericardial effusion is seen. There is no evidence of pneumothorax. There are normal size mediastinal and hilar lymph nodes. The heart is not enlarged. Degenerative changes of the thoracolumbar spine are present. There is no evidence of adrenal nodule. IMPRESSION: 1. No evidence of pulmonary nodule or effusion is seen. Mild interstitial fibrosis. CT was performed with one or more following dose reduction techniques: automated exposure control, adjustment of the mA and kv according to patient's size, or use of a iterative reconstruction technique.
== END | disposition home or self-care (01) ==
LOC: RAH 12:34
PROVIDERS: ATTEND Student in an Organized Health Care Education/Training Program
DX: J84.10 Pulmonary fibrosis, unspecified (principal); I25.10 Atherosclerotic heart disease of native coronary artery without angina pectoris; M47.815 Spondylosis without myelopathy or radiculopathy, thoracolumbar region
CPT/HCPCS: 71270; Q9967

== ENCOUNTER → 2025-01-15 | Outpatient (CLI) | payer MEDICARE, OTHER ==
[~2025-01-15] MED LIST changes: -IOHEXOL-350 50ML VIAL IV ONE
== END | disposition home or self-care (01) ==
LOC: SHCH 13:57
PROVIDERS: ATTEND Student in an Organized Health Care Education/Training Program
DX: I08.0 Rheumatic disorders of both mitral and aortic valves (principal); I11.9 Hypertensive heart disease without heart failure; R07.9 Chest pain, unspecified
CPT/HCPCS: 93306

== ENCOUNTER 2025-01-25 14:02 | Emergency (ER) | payer OTHER ==
[~2025-01-25] VITALS: Ht 154.9 cm; Wt 45.8 kg
--- NOTE | 2025-01-25 15:35 | HMCIMG ---
CT ABDOMEN/PELVIS W/O CONTRAST HISTORY: Status post fall COMPARISON: None TECHNIQUE: Multiple sequential axial images of the abdomen and pelvis were obtained from the dome of the diaphragm through symphysis pubis. Patient was not given contrast through intravenous route. Oral contrast was not given. FINDINGS: Tiny bilateral pleural effusions are seen. There is no evidence of parenchymal disease or pulmonary nodule of the visualized lower lungs. Degenerative changes of the thoracolumbar spine are present. The heart is borderline enlarged. Coronary artery calcifications are seen. Bibasilar linear atelectasis changes are seen. The liver, spleen, adrenal glands and pancreas are unremarkable. There is no evidence of hydronephrosis bilaterally. No evidence of renal stone is seen. There is diverticulosis. Fecal material is seen in the colon. There are normal size retroperitoneal and mesenteric lymph nodes. No ascites is seen. Atherosclerotic changes are present. No acute displaced fracture is seen of both hips. Pelvic sidewalls are symmetric bilaterally. Bladder is well distended without wall thickening. IMPRESSION: 1. No acute displaced fracture is seen of both hips. Degenerative changes are seen. Diverticulosis. Bony osteopenia is seen. CT was performed with one or more following dose reduction techniques: automated exposure control, adjustment of the mA and kv according to patient's size, or use of a iterative reconstruction technique.
--- NOTE | 2025-01-25 16:38 | NUR ---
ABLE TO GET OUT OF BED, WAS ASSISTED OUT OF BED BY . ABLE TO STAND AND SIT ON WHEELCHAIR TO GO THE RESTROOM.
--- NOTE | 2025-01-25 17:46 | HMCIMG ---
CT HEAD WITHOUT CONTRAST INDICATION: Fall TECHNIQUE: Noncontrast axial helical CT images from the vertex through the skull base using 5 mm slice thickness without contrast material. Coronal and sagittal reconstructions were also included. Dose reduction techniques was used using integrated, automated and adaptive dose reduction exposure control. CT was performed with one or more of the following dose reduction techniques: Automated exposure control, adjustment of the mA and/or kV according to patient size, or use of iterative reconstruction technique. COMPARISON: 11/08/2024 FINDINGS: Scattered and coalescent subcortical and periventricular white matter low attenuating areas likely represent residual of chronic small vessel arteriopathy and/or remote vascular insult. Generalized mild cerebral cortical atrophy is present.. No evidence for abnormal extra-axial fluid collections or masses. The ventricles and sulci are normal in size and configuration. No evidence for intracranial parenchymal, epidural, or subdural hemorrhage, mass effect or midline shift. The galaviz-white matter differentiation is well preserved. No secondary evidence to suggest acute ischemia. Mild calcific plaque is present along the calvo of the cavernous segments of both internal carotid arteries. The brainstem and cerebellum appear normal. The visualized orbits appear unremarkable. The visible paranasal sinuses and mastoid air cells are clear. The calvarium appears normal. IMPRESSION: Chronic white matter ischemic changes, mild brain atrophy, and arteriosclerotic disease as described, without acute component.
--- NOTE | 2025-01-25 18:05 | ERN ---
General Chief Complaint: Knee Injury/Swelling Stated Complaint: BILATERAL KNEE PAIN Time Seen by MD: 14:06 Source: patient History of Present Illness Initial Comments In his is a an 84-year-old female coming in after she had a mechanical fall earlier today. She states he fell down and she has been falling down due to weakness. She was recently evaluated for the same thing and states that she was feeling a little bit better but then slipped and fell. Allergies: Coded Allergies: Propoxyphene HCl (Verified Allergy, Unknown, 06/13/22) Propoxyphene Napsyl (Verified Allergy, Unknown, 06/13/22) acetaminophen (Unverified Allergy, Unknown, 01/13/24) iodine (Verified Allergy, Unknown, 06/13/22) morphine (Verified Allergy, Unknown, 06/13/22) Home Meds Reported Medications Ondansetron (Ondansetron Odt) 4 Mg Tab.rapdis, 4 MG PO TID PRN for VOMITING, TAB 01/13/24 Famotidine (Famotidine) 40 Mg Tablet, 40 MG PO HS, TAB 01/13/24 Ramelteon (Ramelteon) 8 Mg Tablet, 8 MG PO HS PRN for SLEEP, TAB 01/13/24 Hydrocodone/Acetaminophen (Hydrocodon-Acetaminophn 10-325) 10 Mg-325 Mg Tablet, 1 EACH PO [id number] PRN for PAIN, TAB 01/13/24 Omeprazole (Omeprazole) 20 Mg Tab.rap.dr, 20 MG PO DAILY 01/13/24 Aspirin (ASPIRIN 81 MG ECTAB) 81 Mg Ectab, 81 MG PO HS, TAB.EC 01/13/24 Citalopram Hydrobromide (Celexa) 10 Mg Tablet, 10 MG PO DAILY, TAB 01/13/24 Donepezil HCl (Donepezil HCl) 5 Mg Tablet, 5 MG PO DAILY, TAB 01/13/24 Pioglitazone HCl (Pioglitazone HCl) 30 Mg Tablet, 30 MG PO DAILY, TAB 06/17/23 Nitroglycerin (Nitroglycerin) 0.4 Mg Tab.subl, 0.4 MG SL AD PRN for CHEST PAIN, TAB.SL 06/17/23 Lacosamide (Vimpat) 50 Mg Tablet, 50 MG PO BID, TAB 06/17/23 Gabapentin (Gabapentin) 100 Mg Capsule, 100 MG PO TID, CAP 12/23/22 Past Medical History Past Medical History: Diabetes-Type II, Seizure Medical History Other: DEMENTIA Past Surgical History: None Surgical History Other: EYE SURGERY, BACK SURGERY Family History Family History: HTN Social History Social History: Negative, Lives with family, Other Female( History) History: Not Applicable ROS Dictation CONSTITUTIONAL: No chills, no fever, no weakness, no diaphoresis, no malaise. HEAD/FACE: No signs of trauma. EENT: No eye pain, no blurred vision, no tearing, no double vision, no ear pain, no ear discharge, no nose pain, no nasal congestion, no throat pain, no throat swelling, no mouth pain. RESPIRATORY: No cough, no orthopnea, no SOB, no stridor, no wheezing. CARDIOVASCULAR: No chest pain, no edema, no palpitations, no syncope. GASTROINTESTINAL/ABDOMINAL: No abdominal pain, no constipation, no diarrhea, no nausea, no vomiting. GENITOURINARY: No abnormal discharge, no dysuria, no frequent urination, no hematuria. No complaints of pain in the genitals. MUSCULOSKELETAL: No back pain, no gout, no joint pain, no joint swelling, muscle pain, muscle stiffness, no neck pain. INTEGUMENTARY: No change in color, no change in hair/nails, no dryness, no lesion, no lumps, no rash. NEUROLOGICAL/PSYCH: No anxiety, not depressed, no emotional problem, no headache, no numbness, no pre-existing deficit, no history of seizures, no tremors, no weakness. HEMATOLOGIC/LYMPHATIC: Not anemic, no history of blood clots, no apparent bleeding, no bruising, glands not swollen. All Systems Negative, Except as Noted. Physical Exam Physical Exam Dictation VITAL SIGNS: Reviewed. GENERAL APPEARANCE: Alert, oriented x3, no acute distress, obese. HEAD AND FACE: Non-traumatic. EYES: PERRL, pink conjunctivas, eyelid no trauma, anterior chamber clear. EARS: Pinnas intact and no signs of trauma or erythema. Ear canals clear and no discharge. TMs no erythema. NOSE: No discharge, no bleeding. OROPHARYNX: Mouth normal, teeth no caries, tongue pink. Pharynx clear, no erythema. Tonsils no exudates, no abscesses noted. Mucous membrane moist. NECK: Supple, non-tender, no thyromegaly, no masses, no JVD, no bruits. BREAST: Deferred. CHEST: No tenderness, no crepitus, no paradoxical movement, no retractions. LUNGS: Clear, well-ventilated, symmetric, no rales, no wheezing, no rhonchi, no stridor, good breath sounds bilaterally. HEART: Regular rate, regular rhythm, no murmur, no gallops. VASCULAR: No peripheral edema. ABDOMEN: Soft, positive bowel sounds, nondistended, no guarding, nontender, no rebound, no masses no hepatomegaly, no splenomegaly, no Dewitt's sign, no hernias. RECTAL: Deferred. GENITAL: Deferred. NEUROLOGICAL: Normal speech, gross motor function intact, gross sensory function intact. MUSCULOSKELETAL: Neck nontender, full range of motion, back nontender, full range of motion. EXTREMITIES: Nontender, full range of motion. SKIN: Color pink, dry, no turgor, no rash, no lacerations, no abrasions, no contusions. LYMPHATICS: Deferred. Results Laboratory and Microbiology Labs Reviewed?: Yes EKG/XRAY/US/CT/MRI X-RAY Comment X-ray knee-NAD CT Scan Comment [id number] [address] IMAGING REPORT Signed PATIENT: NADIR ORTIZ MR#: [id number] : 1940 SEX: F AGE: 84 LOCATION: [facility] ORDER 24 STATUS: [facility] REPORT#: [id number] SERVICE 23 REASON: fall ORDERING PHYSICIAN: JAEL LEI MD PROCEDURE: HEAD WO - CT HEAD/BRAIN W/O CONTRAST CT HEAD WITHOUT CONTRAST INDICATION: Fall TECHNIQUE: Noncontrast axial helical CT images from the vertex through the skull base using 5 mm slice thickness without contrast material. Coronal and sagittal reconstructions were also included. Dose reduction techniques was used using integrated, automated and adaptive dose reduction exposure control. CT was performed with one or more of the following dose reduction techniques: Automated exposure control, adjustment of the mA and/or kV according to patient size, or use of iterative reconstruction technique. COMPARISON: 11/08/2024 FINDINGS: Scattered and coalescent subcortical and periventricular white matter low attenuating areas likely represent residual of chronic small vessel arteriopathy and/or remote vascular insult. Generalized mild cerebral cortical atrophy is present.. No evidence for abnormal extra-axial fluid collections or masses. The ventricles and sulci are normal in size and configuration. No evidence for intracranial parenchymal, epidural, or subdural hemorrhage, mass effect or midline shift. The galaviz-white matter differentiation is well preserved. No secondary evidence to suggest acute ischemia. Mild calcific plaque is present along the calvo of the cavernous segments of both internal carotid arteries. The brainstem and cerebellum appear normal. The visualized orbits appear unremarkable. The visible paranasal sinuses and mastoid air cells are clear. The calvarium appears normal. IMPRESSION: Chronic white matter ischemic changes, mild brain atrophy, and arteriosclerotic disease as described, without acute component. DICTATED BY: ALESHIA DAWSON MD DATE: 01/25/251742 ELECTRONICALLY SIGNED BY: ALESHIA DAWSON MD DATE: 01/25/251745 [address] [address] IMAGING REPORT Signed PATIENT: NADIR ORTIZ MR#: [id number] : 1940 SEX: F AGE: 84 LOCATION: [facility] ORDER 1410 STATUS: [facility] REPORT#: [id number] SERVICE 1409 REASON: fall / hip pain bilateral ORDERING PHYSICIAN: JAEL LEI MD PROCEDURE: ABD PEL WO - CT ABDOMEN/PELVIS W/O CONTRAST CT ABDOMEN/PELVIS W/O CONTRAST HISTORY: Status post fall COMPARISON: None TECHNIQUE: Multiple sequential axial images of the abdomen and pelvis were obtained from the dome of the diaphragm through symphysis pubis. Patient was not given contrast through intravenous route. Oral contrast was not given. FINDINGS: Tiny bilateral pleural effusions are seen. There is no evidence of parenchymal disease or pulmonary nodule of the visualized lower lungs. Degenerative changes of the thoracolumbar spine are present. The heart is borderline enlarged. Coronary artery calcifications are seen. Bibasilar linear atelectasis changes are seen. The liver, spleen, adrenal glands and pancreas are unremarkable. There is no evidence of hydronephrosis bilaterally. No evidence of renal stone is seen. There is diverticulosis. Fecal material is seen in the colon. There are normal size retroperitoneal and mesenteric lymph nodes. No ascites is seen. Atherosclerotic changes are present. No acute displaced fracture is seen of both hips. Pelvic sidewalls are symmetric bilaterally. Bladder is well distended without wall thickening. IMPRESSION: 1. No acute displaced fracture is seen of both hips. Degenerative changes are seen. Diverticulosis. Bony osteopenia is seen. CT was performed with one or more following dose reduction techniques: automated exposure control, adjustment of the mA and kv according to patient's size, or use of a iterative reconstruction technique. DICTATED BY: DHRUV LOCKWOOD MD DATE: 01/25/25 153 ELECTRONICALLY SIGNED BY: DHRUV LOCKWOOD MD DATE: 01/25/25 153 [facility] MDM: Differential diagnosis: Mechanical fall, knee strain, hip strain, head injury, Rationale: Tests considered and ordered secondary to shared decision making include: Previous outside records reviewed: Old ER visits. Risk of complication and/or morbidity or mortality of patient management: None Medications-Per medication reconciliation Need for hospitalization: Patient does not meet criteria for hospitalization. Need for emergency major/minor surgery: No There are no social concerns with this patient. Prescription drug management Prescriptions will include symptomatic care Patient's prior external medical records from other ER visits were reviewed by me as indicated. Prior testing and results from previous visits were reviewed. Prior tests were taken into account with medical decision making and resource utilization, independent historian/historians were used to obtain complete medical history. I independently interpreted the test that were performed, results were reviewed by me and considered findings on radiology if ordered. Medical management and examination interpretation discussions were had by me with other qualified healthcare professionals as indicated for the patient's care. Patient is a 84-year-old female coming in to be evaluated after she had a mechanical fall. Per family member patient was slid down in his herself in the hip region. She was complaining of knee pain as well. Imaging studies negative for acute findings. Patient was discharged in stable condition with a diagnosis of fall. ED Course Orders Procedure Category Date Status Time Ct Abdomen/Pelvis W/O CT 01/25/25 Resulted Contrast 14:09 Knee 3vws Rt RAD 01/25/25 Taken 14:09 Ct Head/Brain W/O CT 01/25/25 Resulted Contrast 16:24 Vital Signs Date Time Temp Pulse Resp B/P (MAP) Pulse Ox O2 Delivery O2 Flow Rate FiO2 01/25/25 15:45 98.8 67 18 123/40 95 Nasal Cannula* 2 28 01/25/25 14:52 74 18 101/41 95 Nasal Cannula* 2 28 01/25/25 14:04 99.1 89 18 110/55 96 Room Air DX & DISP Disposition: Discharge Departure Impression: Primary Impression: Accident due to mechanical fall without injury Condition: Stable Additional Instructions: FOLLOW-UP WITH PRIMARY CARE PROVIDER IN 1 TO 2 DAYS. TAKE MEDICATIONS DIRECTED HERE IN THE EMERGENCY ROOM. OKAY TO CONTINUE HOME MEDICATIONS UNLESS OTHERWISE DISCUSSED DURING YOUR VISIT IN THE EMERGENCY ROOM TODAY. RETURN TO YOUR NEAREST EMERGENCY ROOM IF SYMPTOMS WORSEN OR IF THERE IS NO IMPROVEMENT. CALL 911 IF YOU NEED IMMEDIATE ASSISTANCE. TAKE TYLENOL [id number] NEEDED AND IF NO CONTRAINDICATIONS ARE PRESENT. INCREASE ORAL HYDRATION. A WOUND CULTURE OR URINE CULTURE WAS ORDERED HERE IN THE EMERGENCY ROOM DEPARTMENT PLEASE FOLLOW-UP WITH PRIMARY CARE PROVIDER AND ADVISE THEM TO GET REPEAT PORTS FROM OUR FACILITY. IF YOU HAD ANY MIYA WRAP/SPLINTS THAT WERE APPLIED HERE, PLEASE DO NOT REMOVE THEM UNTIL YOU SEE YOUR PRIMARY CARE OR SPECIALTY. Referrals: Referrals: KIM ELLISON MD (PCP) Time of Disposition: 18:05 JAEL LEI MD Jan 25, 2025 18:05
[2025-01-25 18:15] VITALS: BP 123/38; PULSE 67; RESP 18; TEMP 98.2; O2SAT 93
== END 2025-01-25 18:23 | disposition home or self-care (01) ==
LOC: EDH 14:02
DX: M25.562 Pain in left knee (principal); M25.561 Pain in right knee; E11.9 Type 2 diabetes mellitus without complications; F03.90 Unspecified dementia, unspecified severity, without behavioral disturbance, psychotic disturbance, mood disturbance, and anxiety; Z79.82 Long term (current) use of aspirin; Z79.84 Long term (current) use of oral hypoglycemic drugs; Z79.899 Other long term (current) drug therapy; Z88.5 Allergy status to narcotic agent; Z88.8 Allergy status to other drugs, medicaments and biological substances; Z91.041 Radiographic dye allergy status
CPT/HCPCS: 70450; 73562; 74176; 99285

== ENCOUNTER 2025-02-26 20:13 | Observation (INO) | payer OTHER ==
[~2025-02-26] VITALS: Ht 154.9 cm; Wt 61.7 kg
--- NOTE | 2025-02-26 20:36 | EKG ---
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
[2025-02-26] MEDS: MAG/ALUM/SIMETH 30 ML UDCUP PO ONE (20:38)
[2025-02-26] MEDS: ondanSETRON 4MG INJ IVP ONE (20:38)
[2025-02-26] MEDS: DICYCLOMINE HCL 10 MG/5 ML ML PO ONE (20:38)
--- NOTE | 2025-02-26 20:45 | NUR ---
PT WAS GIVEN MAALOX BUT DID NOT FINISH TAKING MED BECASE SHE FELT THOUGH SHE WAS CHOKING ON THE MEDICATION. MD WAS INFORMED PT DID NOT FINISH MEDICATION, STATES TO ATTEMPT SMALL SIP OF WATER TO SEE IF SHE IS MORE SUCCEFUL WITH THIN LIQIDS.
[2025-02-26 20:47] LABS: BASOPHILS # (AUTO) 0.04 K/uL (0.00-0.20); BASOPHILS % (AUTO) 0.7 % (0.0-5.0); EOSINOPHILS # (AUTO) 0.43 K/uL (0.00-0.70); EOSINOPHILS % (AUTO) 7.2 % (0.0-8.0); HEMATOCRIT 36.2 % (36-48); IMMATURE GRANULOCYTE ABSOLUTE 0.01 K/uL (0-1); LYMPHOCYTES # (AUTO) 2.5 K/uL (1.0-4.8); LYMPHOCYTES % (AUTO) 41.3 % (21.0-51.0); MEAN CORPUSCULAR HEMOGLOBIN 31.4 pg (27.0-33.0); MEAN CORPUSCULAR HGB CONC 31.2 g/dL (32.0-36.0); MEAN CORPUSCULAR VOLUME 100.6 fL (79-99); MONOCYTES # (AUTO) 0.6 K/uL (0.1-1.0); MONOCYTES % (AUTO) 10.2 % (3.0-13.0); NEUTROPHILS # (AUTO) 2.4 K/uL (1.8-7.7); NEUTROPHILS % (AUTO) 40.4 % (40.0-77.0); PLATELET COUNT (AUTO) 179 K/uL (130-400); RED CELL DISTRIBUTION WIDTH 14.2 % (11.0-15.5)
--- NOTE | 2025-02-26 20:51 | NUR ---
PT SPIT UP A QUARTER SIZE PIECE OF POORLY CHEWED UNDIGESTED PIECE OF MEAT. PT STATES SHE FEELS LIKE THERE IS MORE MEAT STUCK IN THERE. PIECE WAS SHOWN TO .
[2025-02-26 21:02] LABS: CREATININE 0.9 mg/dL (0.5-1.0)
[2025-02-26] MEDS: GLUCAGON 1MG KIT 1 MG ML IV ONE (21:02)
[2025-02-26] MEDS: 0.9%NACL 1000ML 1,000 ML IV ONE (21:35)
--- NOTE | 2025-02-26 21:40 | HMCIMG ---
CHEST 1VW CLINICAL HISTORY: Shortness of breath COMPARISON: None TECHNIQUE: Single view of the chest was obtained. FINDINGS: The lungs are hypoventilated. The cardiac size and mediastinum are unremarkable. The bony structures are within normal limits. IMPRESSION: Hypoventilation
--- NOTE | 2025-02-26 21:48 | ERN ---
General Chief Complaint: Choking Stated Complaint: CHOCKING ON BEEF Time Seen by MD: 20:20 History of Present Illness Initial Comments 84-year-old female came in for a choking episode after eating meat and still feels like there is something stuck behind her throat. Patient keeps forgetting undigested food. Patient denies chest pain stridor or shortness of breath. Patient otherwise has no concerns. Allergies: Coded Allergies: Propoxyphene HCl (Verified Allergy, Unknown, 06/13/22) Propoxyphene Napsyl (Verified Allergy, Unknown, 06/13/22) acetaminophen (Unverified Allergy, Unknown, 01/13/24) iodine (Verified Allergy, Unknown, 06/13/22) morphine (Verified Allergy, Unknown, 06/13/22) Home Meds Reported Medications Ondansetron (Ondansetron Odt) 4 Mg Tab.rapdis, 4 MG PO TID PRN for VOMITING, TAB 01/13/24 Famotidine (Famotidine) 40 Mg Tablet, 40 MG PO HS, TAB 01/13/24 Ramelteon (Ramelteon) 8 Mg Tablet, 8 MG PO HS PRN for SLEEP, TAB 01/13/24 Hydrocodone/Acetaminophen (Hydrocodon-Acetaminophn 10-325) 10 Mg-325 Mg Tablet, 1 EACH PO [id number] PRN for PAIN, TAB 01/13/24 Omeprazole (Omeprazole) 20 Mg Tab.rap.dr, 20 MG PO DAILY 01/13/24 Aspirin (ASPIRIN 81 MG ECTAB) 81 Mg Ectab, 81 MG PO HS, TAB.EC 01/13/24 Citalopram Hydrobromide (Celexa) 10 Mg Tablet, 10 MG PO DAILY, TAB 01/13/24 Donepezil HCl (Donepezil HCl) 5 Mg Tablet, 5 MG PO DAILY, TAB 01/13/24 Pioglitazone HCl (Pioglitazone HCl) 30 Mg Tablet, 30 MG PO DAILY, TAB 06/17/23 Nitroglycerin (Nitroglycerin) 0.4 Mg Tab.subl, 0.4 MG SL AD PRN for CHEST PAIN, TAB.SL 06/17/23 Lacosamide (Vimpat) 50 Mg Tablet, 50 MG PO BID, TAB 06/17/23 Gabapentin (Gabapentin) 100 Mg Capsule, 100 MG PO TID, CAP 12/23/22 Past Medical History Past Medical History: Diabetes-Type II, Seizure Medical History Other: DEMENTIA Past Surgical History: None Surgical History Other: EYE SURGERY, BACK SURGERY Family History Family History: HTN Social History Social History: Negative, Lives with family, Other Female( History) History: Not Applicable ROS Dictation Difficulty swallowing Physical Exam General Appearance: (+) no apparent distress Ear, Nose, Throat: (+) hearing grossly normal Neck: (+) normal inspection Respiratory: (+) chest non-tender, (+) lungs clear Heart: (+) regular, (+) no gallop Results Laboratory and Microbiology Lab and Micro Result Laboratory Tests Test 02/26/25 20:38 White Blood Count 6.0 K/uL (4.8-10.8) Red Blood Count 3.60 MIL/uL (4.00-5.50) L Hemoglobin 11.3 g/dL (12.0-16.0) L Hematocrit 36.2 % (36-48) Mean Corpuscular Volume 100.6 fL (79-99) H Mean Corpuscular Hemoglobin 31.4 pg (27.0-33.0) Mean Corpuscular Hemoglobin Concent 31.2 g/dL (32.0-36.0) L Red Cell Distribution Width 14.2 % (11.0-15.5) Platelet Count 179 K/uL (130-400) Mean Platelet Volume 10.6 fL (7.5-10.5) H Immature Granulocyte % (Auto) 0.2 % (0-1) Neutrophils (%) (Auto) 40.4 % (40.0-77.0) Lymphocytes (%) (Auto) 41.3 % (21.0-51.0) Monocytes (%) (Auto) 10.2 % (3.0-13.0) Eosinophils (%) (Auto) 7.2 % (0.0-8.0) Basophils (%) (Auto) 0.7 % (0.0-5.0) Neutrophils # (Auto) 2.4 K/uL (1.8-7.7) Lymphocytes # (Auto) 2.5 K/uL (1.0-4.8) Monocytes # (Auto) 0.6 K/uL (0.1-1.0) Eosinophils # (Auto) 0.43 K/uL (0.00-0.70) Basophils # (Auto) 0.04 K/uL (0.00-0.20) Absolute Immature Granulocyte (auto 0.01 K/uL (0-1) Nucleated Red Blood Cells 0.0 % (0.0-0.19) Sodium Level 144 mmol/L (136-145) Potassium Level 5.0 mmol/L (3.5-5.1) Chloride Level 105 mmol/L (101-111) Carbon Dioxide Level 36 mmol/L (21-32) H Blood Urea Nitrogen 23 mg/dL (7-18) H Creatinine 0.9 mg/dL (0.5-1.0) Glomerular Filtration Rate Calc 63 mL/min (>90) Random Glucose 154 mg/dL (70-105) H Total Calcium 8.8 mg/dL (8.5-10.1) Troponin I High Sensitivity 7 ng/L (4-50) MDM MDM: Differential diagnosis: Rationale: Tests considered and ordered secondary to shared decision making include: labs, ECG and radiology Previous outside records reviewed: Old ER visits. Risk of complication and/or morbidity or mortality of patient management: None Medications-Per medication reconciliation Need for hospitalization: Patient does meet criteria for hospitalization. Need for emergency major/minor surgery: No There are no social concerns with this patient. Prescription drug management Prescriptions will include symptomatic care Patient's prior external medical records from other ER visits were reviewed by me as indicated. Prior testing and results from previous visits were reviewed. Prior tests were taken into account with medical decision making and resource utilization, independent historian/historians were used to obtain complete medical history. I independently interpreted the test that were performed, results were reviewed by me and considered findings on radiology if ordered. Medical management and examination interpretation discussions were had by me with other qualified healthcare professionals as indicated for the patient's care. ED Course Orders Procedure Category Date Status Time Chest 1vw RAD 02/26/25 Resulted 20:26 12 Lead Ekg Tracing- EKG 02/26/25 Complete Technical 20:26 Cbc With Differential LAB 02/26/25 Complete 20:26 Basic Metabolic Panel LAB 02/26/25 Complete 20:26 Troponin I High LAB 02/26/25 Complete Sensitivity 20:26 Ondansetron 4mg Inj PHA 02/26/25 Complete (Zofran 4mg Inj) 20:30 Mag/Alum/Simeth 30ml PHA 02/26/25 Complete (Maalox Plus 30ml) 20:30 Dicyclomine Hcl PHA 02/26/25 Complete (Bentyl 10mg/5ml 20:30 Glucagon 1mg Kit PHA 02/26/25 Complete (Glucagon 1mg Kit) 21:00 0.9%Nacl 1000ml (Ns PHA 02/26/25 Complete 1000ml) 21:30 Current Medications Medications (Trade) Dose Ordered Sig/Bhavna Route PRN Reason Start Time Stop Time Status Last Admin Dose Admin Al Hydroxide/Mg Hydroxide (MAALox PLUS 30ML) 30 ml ONCE ONCE PO 02/26/25 20:30 02/26/25 20:31 DC 02/26/25 20:38 Dicyclomine HCl (Bentyl 10mg/5ml Syrup) 10 mg ONCE ONCE PO 02/26/25 20:30 02/26/25 20:31 DC 02/26/25 20:38 Glucagon (Glucagon 1mg Kit) 0.5 mg ONCE ONCE IV 02/26/25 21:00 02/26/25 21:01 DC 02/26/25 21:02 Ondansetron HCl (zoFRAN 4MG INJ) 4 mg ONCE ONCE IVP 02/26/25 20:30 02/26/25 20:31 DC 02/26/25 20:38 Sodium Chloride 1,000 ml @ 0 mls/hr ONCE ONCE IV 02/26/25 21:30 02/26/25 21:31 DC 02/26/25 21:35 Vital Signs Date Time Temp Pulse Resp B/P (MAP) Pulse Ox O2 Delivery O2 Flow Rate FiO2 02/26/25 20:45 98.1 76 16 129/50 98 Room Air* 0 21 02/26/25 20:15 97.9 86 24 126/76 94 Room Air DX & DISP Disposition: Inpatient Departure Impression: Primary Impression: Dysphagia Condition: Stable Referrals: JIMMY CABALLERO MD (PCP) FERNANDEZ THOMPSON MD February 26, 2025 21:48
[2025-02-26 22:11] LABS: APPEARANCE,URINE CLEAR (CLEAR); BILIRUBIN,URINE NEGATIVE (NEGATIVE); COLOR,URINE COLORLESS (YELLOW); GLUCOSE, URINE (UA) NEGATIVE (NEGATIVE); KETONES,URINE NEGATIVE (NEGATIVE); LEUKOCYTE ESTERASE ,URINE NEGATIVE Leu/uL (NEGATIVE); NITRATE,URINE NEGATIVE (NEGATIVE); OCCULT BLOOD,URINE NEGATIVE (NEGATIVE); PROTEIN,URINE NEGATIVE (NEGATIVE); UROBILINOGEN,URINE 0.2 mg/dL (0.2-1.0)
[2025-02-26 22:13] LABS: ADD UA MICROSCOPIC YES
[2025-02-26 22:14] LABS: MUCUS,URINE RARE LPF (None Seen); RBC,URINE 0-1 /HPF (0-1); UNCLASSIFIED CRYSTAL 1 /HPF (None Seen); WBC,URINE 0-1 /HPF (0-1)
[2025-02-26] MEDS ORDERED: ondanSETRON 4MG INJ IV PRN (22:30)
[2025-02-26] MEDS ORDERED: acetaMINOPHEN 325 MG TAB PO PRN (22:30)
[2025-02-26] MEDS ORDERED: NITROGLYCERIN 0.4 MG SL TAB SL PRN (22:30)
[2025-02-26] MEDS ORDERED: LACTULOSE 20 GM/30 ML UDCUP PO PRN (22:30)
[2025-02-26] MEDS ORDERED: GLUCAGON 1MG KIT 1 MG ML IM PRN (22:30)
[2025-02-26] MEDS ORDERED: DEXTROSE 50%-WATER 50 ML DISP.SYRIN IV PRN (22:30)
[2025-02-26] MEDS ORDERED: MAG/ALUM/SIMETH 30 ML UDCUP PO PRN (22:30)
[2025-02-26] MEDS ORDERED: guaiFENesin-DM 200/20MG 10ML PO PRN (22:30)
--- NOTE | 2025-02-26 22:31 | HP ---
[facility] HISTORY & PHYSICAL Date Patient Seen: February 26, 2025 Time of Visit: 22:23 Supervising Physician: DR. NIEVES CONNELL Primary Care Physician: DR. ADA MARQUEZ Outpatient Specialists: [ ] Inpatient Consults: [ ] PROBLEM LIST: 1. FOREIGN BODY IN THE ESOPHAGUS 2. POSSIBLE ESOPHAGEAL STRICTURE 3. ADVANCED DEMENTIA 4. DIABETES TYPE 2 UNCONTROLLED CHIEF COMPLAINT: Piece of meat in the esophagus HPI: Patient is a 84-year-old female with past medical history significant for diabetes type 2, advanced dementia, hyperlipidemia, coronary artery disease, and a surgical history of cardiac stent placement, hysterectomy, left eye surgery, back surgery, brought to the emergency department by spouse for evaluation of foreign body in the esophagus. Patient reportedly was chewing a piece of meat, when trying to swallow the piece was stuck in the esophagus. Patient tried him at home to vomit the piece of meat but was unable to do so. Patient was taken to the emergency department for further evaluation and treatment. Patient denies fever, chills, vomiting, diarrhea, constipation, chest pain, dizziness, or any other symptoms. The workup in the emergency department shows glucose of 154. In the emergency department, patient received glucagon, NS 1 L bolus, Zofran 4 mg IV. In addition, digital forensic analyst has been consulted. Patient will be admitted to medical surgical floor for further evaluation and treatment. PAST MEDICAL HX: see above PAST SURGICAL HX: noncontributory SOCIAL HISTORY: No tobacco, ETOH, or illicit drug use Coded Allergies: Propoxyphene HCl (Verified Allergy, Unknown, 06/13/22) Propoxyphene Napsyl (Verified Allergy, Unknown, 06/13/22) acetaminophen (Unverified Allergy, Unknown, 01/13/24) iodine (Verified Allergy, Unknown, 06/13/22) morphine (Verified Allergy, Unknown, 06/13/22) REVIEW OF SYSTEMS: 12 point ROS reviewed with patient. Pertinent positives mentioned above. Otherwise negative. PHYSICAL EXAM: GENERAL: alert, weak, awake oriented x 3 HEENT: EOMI, Sclera non icteric, moist mucosa NECK: Supple, no JVD, trachea midline LUNGS: Clear breath sounds bilaterally. No wheezes HEART: Regular rate and rhythm. Normal S1 and S2, without murmurs ABD: Abdomen soft, nontender. Bowel sounds present EXT: No clubbing cyanosis or edema NEURO: Alert and oriented to person, follows commands Vital Signs (last 8hr) Date Time Temp Pulse Resp B/P (MAP) Pulse Ox O2 Delivery O2 Flow Rate FiO2 02/26/25 20:45 98.1 76 16 129/50 98 Room Air* 0 21 02/26/25 20:15 97.9 86 24 126/76 94 Room Air LABS: Hematology Labs: Test 02/26/25 20:38 Range/Units White Blood Count 6.0 4.8-10.8 K/uL Red Blood Count 3.60 L 4.00-5.50 MIL/uL Hemoglobin 11.3 L 12.0-16.0 g/dL Hematocrit 36.2 36-48 % Mean Corpuscular Volume 100.6 H 79-99 fL Mean Corpuscular Hemoglobin 31.4 27.0-33.0 pg Mean Corpuscular Hemoglobin Concent 31.2 L 32.0-36.0 g/dL Red Cell Distribution Width 14.2 11.0-15.5 % Platelet Count 179 130-400 K/uL Mean Platelet Volume 10.6 H 7.5-10.5 fL Immature Granulocyte % (Auto) 0.2 0-1 % Neutrophils (%) (Auto) 40.4 40.0-77.0 % Lymphocytes (%) (Auto) 41.3 21.0-51.0 % Monocytes (%) (Auto) 10.2 3.0-13.0 % Eosinophils (%) (Auto) 7.2 0.0-8.0 % Basophils (%) (Auto) 0.7 0.0-5.0 % Neutrophils # (Auto) 2.4 1.8-7.7 K/uL Lymphocytes # (Auto) 2.5 1.0-4.8 K/uL Monocytes # (Auto) 0.6 0.1-1.0 K/uL Eosinophils # (Auto) 0.43 0.00-0.70 K/uL Basophils # (Auto) 0.04 0.00-0.20 K/uL Absolute Immature Granulocyte (auto 0.01 0-1 K/uL Nucleated Red Blood Cells 0.0 0.0-0.19 % Chemistry Labs: Test 02/26/25 20:38 Range/Units Sodium Level 144 136-145 mmol/L Potassium Level 5.0 3.5-5.1 mmol/L Chloride Level 105 101-111 mmol/L Carbon Dioxide Level 36 H 21-32 mmol/L Blood Urea Nitrogen 23 H 7-18 mg/dL Creatinine 0.9 0.5-1.0 mg/dL Glomerular Filtration Rate Calc 63 >90 mL/min Random Glucose 154 H 70-105 mg/dL Total Calcium 8.8 8.5-10.1 mg/dL Troponin I High Sensitivity 7 4-50 ng/L DIAGNOSTICS / RADIOLOGY RESULTS: [ ] PLAN NEURO: Minimize central acting medications as possible. Maintain fall precautions, adequate lighting during the day PULMONARY: Supplemental 02 as needed. Maintain aspiration precautions at all times CARDIOVASCULAR: Follow hemodynamics. Vital signs per facility protocol GI & NUTRITION: Continue with nutritional support. Continue stool softeners and laxatives as needed. Keep patient NPO until cleared by digital forensic analyst Gastroenterology consulted for possible EGD with removal of foreign body Start NS at 100 mL/hour Present CT neck without contrast KIDNEYS & ELECTROLYTES: Strict monitoring of intake, output and overall fluid balance. Avoid nephrotoxic medications to the extent possible. Medications to be dosed according to renal function. Monitor electrolytes and replace as needed ENDOCRINE: Maintain blood glucose between 100-180 at all times. Hypoglycemia protocol in place Obtain hemoglobin A1c INFECTIOUS DISEASE: Trend temperature, WBC and procalcitonin level Follow cultures, deescalate antibiotics as soon as possible. Panculture if new onset fever ONCOLOGY/HEMATOLOGY/COAGULATION: Monitor for s/s of bleeding Monitor hemoglobin, coagulation studies as needed SKIN: Pressure ulcer prevention per facility protocol Specialty mattress ORTHO/REHAB: Continue PT/OT Prophylaxis: Continue GI and DVT prophylaxis Code Status: Full Resuscitation Disposition: TBD Other: Total patient care time exceeds 35 minutes excluding all procedures. Case dis cussed with , and the above plan was formulated. BRANDI VARGAS February 26, 2025 22:31
[2025-02-26 22:46] LABS: INR 1.01 (0.85-1.15); PROTHROMBIN TIME 10.7 SEC (9.6-11.6)
[2025-02-26 22:47] LABS: PARTIAL THROMBOPLASTIN TIME 25.6 SEC (26.3-35.5)
[2025-02-26] MEDS: 0.9%NACL 1000ML 1,000 ML IV SCH (22:48)
[2025-02-26 22:54] LABS: HEMOGLOBIN A1C 7.2 % (4.0-6.0)
--- NOTE | 2025-02-26 23:17 | HMCIMG ---
CT NECK SOFT TISS W/O CONTRAST HISTORY: Foreign body in esophagus COMPARISON: None TECHNIQUE: Multiple sequential axial images of the soft tissue neck were obtained. Patient was not given contrast through intravenous route. FINDINGS: No evidence of radiopaque foreign body is seen. Nonradiopaque foreign body cannot be excluded Visualized portion of brain parenchyma within the posterior fossa is within normal limits. Parapharyngeal fat planes are preserved bilaterally. Parotid glands and submandibular glands are grossly within normal limits. There are normal size cervical lymph nodes. The airway is patent. Visualized portion of the lung apices are unremarkable. IMPRESSION: 1. No evidence of radiopaque foreign bodies No acute findings. CT was performed with one or more following dose reduction techniques: automated exposure control, adjustment of the mA and kv according to patient's size, or use of a iterative reconstruction technique.
[2025-02-26 23:30] VITALS: BP 123/56; PULSE 65; RESP 20; TEMP 98.1
[2025-02-27] MEDS: INSULIN humuLIN R 100 UNIT/ML 3ML SQ SCH
[2025-02-27 04:00] VITALS: BP 118/53; PULSE 72; RESP 20; TEMP 97.6
[2025-02-27 08:00] VITALS: BP 139/65; PULSE 92; RESP 17; TEMP 97.6; O2SAT 88
--- NOTE | 2025-02-27 09:49 | NUR ---
NOTIFIED OF PATIENT STATUS AND REASON FOR ADMISSION. PER DR AMANDA, "CHALLENGE PT WITH CLEAR LIQUIDS AND UPDATE ON TOLERANCE". ORDERS INPUT. ALSO INFORMED PT SATING IN THE 80S THIS MORNING AND NOW ON 2L VIA NASAL CANNULA. NO ADDITIONAL ORDERS. Addendum: 02/27/25 at 0955 by ROCHELLE CORLEY RN RN Amended: Links added.
[2025-02-27] MEDS: acetaMINOPHEN 325 MG TAB PO PRN (11:30)
[2025-02-27 12:00] VITALS: BP 124/52; PULSE 87; RESP 17; TEMP 98.1
[2025-02-27 16:00] VITALS: BP 115/48; PULSE 70; RESP 18; TEMP 97.5
--- NOTE | 2025-02-27 16:21 | NUR ---
UPDATED TREASURE ON PATIENT TOLERATING CLEARS. PER TREASURE. PATIENT CLEARED FOR DISCHARGE. PATIENT TO FOLLOW UP OUTPATIENT AT HIS OFFICE. [phone] TO SET UP APPOINTMENT. PATIENT ASKING FOR DIET CHANGE AND STATES FEELS OKAY TO BE DISCHARGED TODAY. CONTACTED LOAN ANDRADE TO UPDATE ON PATIENT STATUS. ORDERS FOR GI SOFT DIET. Addendum: 02/27/25 at 1626 by ROCHELLE CORLEY RN RN Amended: Links added.
--- NOTE | 2025-02-27 16:52 | DS ---
[facility] DISCHARGE SUMMARY Date Patient Seen: Feb 27, 2025 Time of Visit: 16:52 Supervising Physician: [Dr. Mukherjee] Primary Care Physician: DR. ADA MARQUEZ Outpatient Specialists: [ ] Inpatient Consults: [ ] PROBLEM LIST: 1. FOREIGN BODY IN THE ESOPHAGUS, resolved 2. POSSIBLE ESOPHAGEAL STRICTURE 3. ADVANCED DEMENTIA 4. DIABETES TYPE 2 UNCONTROLLED HOSPITAL COURSE: HPI (per admitting provider) Patient is a 84-year-old female with past medical history significant for diabetes type 2, advanced dementia, hyperlipidemia, coronary artery disease, and a surgical history of cardiac stent placement, hysterectomy, left eye surgery, back surgery, brought to the emergency department by spouse for evaluation of foreign body in the esophagus. Patient reportedly was chewing a piece of meat, when trying to swallow the piece was stuck in the esophagus. Patient tried him at home to vomit the piece of meat but was unable to do so. Patient was taken to the emergency department for further evaluation and treatment. Patient denies fever, chills, vomiting, diarrhea, constipation, chest pain, dizziness, or any other symptoms. The workup in the emergency department shows glucose of 154. In the emergency department, patient received glucagon, NS 1 L bolus, Zofran 4 mg IV. In addition, gun repair clerk has been consulted. Patient was admitted for further management. Per nursing report the patient reported coughing up a quarter sized piece of meat and relieved her choking symptoms. She was able to advance diet which she tolerated well. GI was consulted and recommended no EGD given resolution of symptoms. She was discharged in stable condition with GI soft mechanical diet. CHRONIC PROBLEMS: continue previous management per PCP unless otherwise indicated DISCHARGE MEDICATIONS: As previously prescribe. Pt hemodynamically stable and afebrile at time of discharge. PCP notified of patients admission, hospital course and discharge. Continued Medications: Aspirin (Aspirin 81 Mg Ectab) 81 Mg Ectab 81 MG PO HS, TAB.EC Citalopram Hydrobromide (Celexa) 10 Mg Tablet 10 MG PO DAILY, TAB Donepezil HCl (Donepezil HCl) 5 Mg Tablet 5 MG PO DAILY, TAB Famotidine (Famotidine) 40 Mg Tablet 40 MG PO HS, TAB Gabapentin (Gabapentin) 100 Mg Capsule 100 MG PO TID, CAP Hydrocodone/Acetaminophen (Hydrocodon-Acetaminophn 10-325) 10 Mg-325 Mg Tablet 1 EACH PO [id number] PRN for PAIN, TAB Lacosamide (Vimpat) 50 Mg Tablet 50 MG PO BID, TAB Nitroglycerin (Nitroglycerin) 0.4 Mg Tab.subl 0.4 MG SL AD PRN for CHEST PAIN, TAB.SL Omeprazole (Omeprazole) 20 Mg Tab.rap.dr 20 MG PO DAILY Ondansetron (Ondansetron Odt) 4 Mg Tab.rapdis 4 MG PO TID PRN for VOMITING, TAB Pioglitazone HCl (Pioglitazone HCl) 30 Mg Tablet 30 MG PO DAILY, TAB Ramelteon (Ramelteon) 8 Mg Tablet 8 MG PO HS PRN for SLEEP, TAB PHYSICAL EXAM: GENERAL: alert, weak, awake oriented x 3 HEENT: EOMI, Sclera non icteric, moist mucosa NECK: Supple, no JVD, trachea midline LUNGS: Clear breath sounds bilaterally. No wheezes HEART: Regular rate and rhythm. Normal S1 and S2, without murmurs ABD: Abdomen soft, nontender. Bowel sounds present EXT: No clubbing cyanosis or edema NEURO: Alert and oriented to person, follows commands FOLLOW-UP: Follow-up with PCP in 2-3 days for reevaluation. Continue with GI soft diet. RECOMMENDATIONS: See Discharge Instructions This case was seen and discussed with my supervising physician. More than 35 minutes spent on discharge process, including evaluation of the patient, discussion with nursing staff, medication reconciliation and follow-up appointments RICKY CATES Feb 27, 2025 16:52
--- NOTE | 2025-02-27 18:18 | NUR ---
PATIENT DISCHARGED. IV REMOVED INTACT. DISCHARGE INSTRUCTIONS GIVEN TO PATIENT AND SPOUSE. ALL BELONGINGS COLLECTED BY SPOUSE. ALL QUESTIONS AND CONCERNS ANSWERED. PATIENT WHEELED DOWN BY PCT.
== END 2025-02-27 18:56 | disposition home or self-care (01) ==
LOC: EDH 20:13 → INTOOBSV 22:14 → EDHIP 22:14 → 3DH 23:27
PROVIDERS: ADMIT Internal Medicine Critical Care Medicine; ATTEND Internal Medicine Critical Care Medicine
DX: E11.65 Type 2 diabetes mellitus with hyperglycemia (principal); F03.90 Unspecified dementia, unspecified severity, without behavioral disturbance, psychotic disturbance, mood disturbance, and anxiety; E78.5 Hyperlipidemia, unspecified; R13.10 Dysphagia, unspecified; I25.10 Atherosclerotic heart disease of native coronary artery without angina pectoris; Z88.5 Allergy status to narcotic agent; Z90.710 Acquired absence of both cervix and uterus; Z95.5 Presence of coronary angioplasty implant and graft; Z79.899 Other long term (current) drug therapy; Z88.6 Allergy status to analgesic agent; Z88.8 Allergy status to other drugs, medicaments and biological substances
CPT/HCPCS: 96361 ×4; 99285; 83036; 84484; 80048; 85025; 85610; 85730; 86850; 86900; 86901; 81001; 36415; 71045; 70490; 96374; 96375; 93005; 82948 ×3; J1610; J2405; G0378 ×2; J7030

== ENCOUNTER 2025-08-29 11:35 | Observation (INO) | payer OTHER ==
[~2025-08-29] VITALS: Ht 154.9 cm; Wt 53.3 kg
[2025-08-29 12:28] LABS: IMMATURE GRANULOCYTE ABSOLUTE 0.02 K/uL (0-1); NUCLEATED RED BLOOD CELLS 0.0 % (0.0-0.19); PLATELET COUNT (AUTO) 225 K/uL (130-400); RED BLOOD CELL COUNT(AUTO) 4.57 MIL/uL (4.00-5.50); RED CELL DISTRIBUTION WIDTH 13.6 % (11.0-15.5); WHITE BLOOD COUNT (AUTO) 8.3 K/uL (4.8-10.8)
[2025-08-29] MEDS: ASPIRIN 81MG CHEW TAB PO ONE (12:30)
[2025-08-29] MEDS: NITROGLYCERIN 0.4 MG SL TAB SL PRN (12:30)
[2025-08-29 12:35] LABS: CREATININE 0.8 mg/dL (0.5-1.0); GLOMERULAR FILTR. RATE CALC 73.0 mL/min (>90); GLUCOSE,RANDOM 331.0 mg/dL (70-105); SODIUM SERUM 138.0 mmol/L (136-145); UREA NITROGEN, BLOOD 16.0 mg/dL (7-18)
--- NOTE | 2025-08-29 14:22 | HMCIMG ---
EXAM: CR Chest, 1 View. CLINICAL HISTORY: cp COMPARISON: None provided. FINDINGS: LUNGS: There is no mass, infiltrate, or acute pulmonary abnormality. PLEURAL SPACES: No evidence of pleural effusion or pneumothorax. MEDIASTINUM: The cardiomediastinal silhouette is within normal limits. BONES: No acute osseous abnormality. IMPRESSION: No acute cardiopulmonary pathology is evident. /[place]
--- NOTE | 2025-08-29 14:57 | ERN ---
ED Note History of Present Illness Stated Complaint: CHEST PAIN Chief Complaint: Chest Pain Time Seen by MD: 11:39 Time Seen by Midlevel: 11:42 Dictation: 84-year-old female with a history of hypertension coming in with complaints of intermittent sharp chest pain onset last night. Patient denies having any fever nausea or vomiting. Rates chest pain at this time 02/05. Denies any shortness the breath. Allergies: Coded Allergies: iodine (Unverified Allergy, Unknown, 07/25/25) Home Meds Reported Medications Ubidecarenone (Co Q-10) 100 Mg Capsule, 100 MG PO DAILYDINNER, CAP 07/26/25 Donepezil HCl (Donepezil HCl) 5 Mg Tab.rapdis, 5 MG PO DAILYDINNER, TAB 07/26/25 Isosorbide Mononitrate (Isosorbide Mononitrate ER) 30 Mg Tab.er.24h, 30 MG PO DAILY, TAB 07/26/25 Lacosamide (Vimpat) 50 Mg Tablet, 50 MG PO BID, TAB 07/26/25 Memantine HCl (Memantine HCl ER) 14 Mg Cap.spr.24, 14 MG PO DAILYDINNER, CAP 07/26/25 Acetaminophen (Tylenol Extra Strength) 500 Mg Tablet, 500 MG PO BID PRN for PAIN, TAB 07/26/25 Quetiapine Fumarate (Quetiapine Fumarate) 25 Mg Tablet, 25 MG PO HS, TAB 07/26/25 Past Medical History Past Medical History: CAD, High Cholesterol, Heart Disease, Hypertension Surgical History: Other Surgical History Other: CARDIAC STENTS Review of System Dictation Constitutional: Negative for fever,chills, and weight loss Eyes: Negative for injury, pain,redness, and discharge ENT: Negative for injury,pain or swelling Cardiovascular: Complaining of chest pain Respiratory: Negative for shortness of breath, cough, and wheezing, Abdomen/GI: Negative for abdominal pain, nausea, vomiting, diarrhea, and co nstipation Back: Negative for injury and pain : Negative for injury, bleeding and discharge MS/Extremity: Negative for injury and deformity Skin: Negative for rash, and discoloration Neuro: Negative for headache, weakness, numbness, tingling, and seizure Psych: Negative for suicide ideation, homicidal ideation, and hallucinations Review of Systems: was completed Initial Vital Sign VS Vital Signs Date Time Temp Pulse Resp B/P (MAP) Pulse Ox O2 Delivery O2 Flow Rate FiO2 08/29/25 11:37 97.9 93 18 136/53 96 Room Air 0 08/29/25 12:19 21 Physical Exam Dictation General: awake, alert, NAD Head/Face: Normocephalic, atraumatic Eyes: PERRL, EOMI, vision at baseline ENT: oral cavity clear, TMs clear, no signs of infection Neck: Trachea midline, supple, no nuchal rigidity Cardiovascular: RRR, normal S1/S2, No MRGs, no JVD Respiratory: CTAB, no respiratory distress, No rales or wheezes Abdomen: Soft, non-tender, non-distended, normal bowel sounds, no guarding or rebound. Skin: Warm, dry, normal turgor, no rash MS/Extremity: Pulses equal, no cyanosis, neurovascular intact, FROM Neuro: COAx4, GCS 15, strength 5/5, CN 2-12 intact, normal cerebellar exam, normal gait, Psych: Normal behavior, mood, and affect normal Results (Laboratory/Radiology) Laboratory/Radiology Laboratory Tests Test 08/29/25 12:23 White Blood Count 8.3 K/uL (4.8-10.8) Red Blood Count 4.57 MIL/uL (4.00-5.50) Hemoglobin 14.2 g/dL (12.0-16.0) Hematocrit 45.6 % (36-48) Mean Corpuscular Volume 99.8 fL (79-99) H Mean Corpuscular Hemoglobin 31.1 pg (27.0-33.0) Mean Corpuscular Hemoglobin Concent 31.1 g/dL (32.0-36.0) L Red Cell Distribution Width 13.6 % (11.0-15.5) Platelet Count 225 K/uL (130-400) Mean Platelet Volume 10.8 fL (7.5-10.5) H Immature Granulocyte % (Auto) 0.2 % (0-1) Neutrophils (%) (Auto) 77.7 % (40.0-77.0) H Lymphocytes (%) (Auto) 14.9 % (21.0-51.0) L Monocytes (%) (Auto) 5.4 % (3.0-13.0) Eosinophils (%) (Auto) 1.4 % (0.0-8.0) Basophils (%) (Auto) 0.4 % (0.0-5.0) Neutrophils # (Auto) 6.4 K/uL (1.8-7.7) Lymphocytes # (Auto) 1.2 K/uL (1.0-4.8) Monocytes # (Auto) 0.5 K/uL (0.1-1.0) Eosinophils # (Auto) 0.12 K/uL (0.00-0.70) Basophils # (Auto) 0.03 K/uL (0.00-0.20) Absolute Immature Granulocyte (auto 0.02 K/uL (0-1) Nucleated Red Blood Cells 0.0 % (0.0-0.19) Sodium Level 138 mmol/L (136-145) Potassium Level 4.5 mmol/L (3.5-5.1) Chloride Level 98 mmol/L (101-111) L Carbon Dioxide Level 35 mmol/L (21-32) H Blood Urea Nitrogen 16 mg/dL (7-18) Creatinine 0.8 mg/dL (0.5-1.0) Glomerular Filtration Rate Calc 73 mL/min (>90) Random Glucose 331 mg/dL (70-105) H Total Calcium 9.5 mg/dL (8.5-10.1) Troponin I High Sensitivity 8 ng/L (4-50) B-Type Natriuretic Peptide 58 pg/mL (0-100) Labs Reviewed?: Yes EKG Comment: EKGs done at 11:41 a.m., sinus rhythm rate 93. No STEMI interpreted by ER MD. X-RAY Comment: [place] [address] IMAGING REPORT Signed PATIENT: NADIR SAMANO MR#: [id number] : 1940 SEX: F AGE: 84 LOCATION: [facility] ORDER 114 STATUS: REG ER REPORT#: [id number] SERVICE 1148 REASON: cp ORDERING PHYSICIAN: RAYSHAWN RODRIGUES CNP PROCEDURE: CXR1VW - CHEST 1VW EXAM: CR Chest, 1 View. CLINICAL HISTORY: cp COMPARISON: None provided. FINDINGS: LUNGS: There is no mass, infiltrate, or acute pulmonary abnormality. PLEURAL SPACES: No evidence of pleural effusion or pneumothorax. MEDIASTINUM: The cardiomediastinal silhouette is within normal limits. BONES: No acute osseous abnormality. IMPRESSION: No acute cardiopulmonary pathology is evident. /[place] DICTATED BY: BROCK CASTILLO Jr., MD DATE: 08/29/251521 ELECTRONICALLY SIGNED BY: BROCK CASTILLO Jr., MD DATE: 08/29/25 152 ED Course ED Course Orders Procedure Category Date Status Time Cbc With Differential LAB 08/29/25 Complete 11:44 Basic Metabolic Panel LAB 08/29/25 Complete 11:44 Troponin I High LAB 08/29/25 Complete Sensitivity 11:44 B-Type Natriuretic LAB 08/29/25 Complete Peptide 11:44 12 Lead Ekg Tracing- EKG 08/29/25 Logged Technical 11:44 Chest 1vw RAD 08/29/25 Resulted 11:44 Aspirin 81mg Chew Tab PHA 08/29/25 Complete (Aspirin 81mg Chew 12:00 Nitroglycerin 0.4mg PHA 08/29/25 In Process Sl Tab (Nitrostat) 12:00 Current Medications Medications (Trade) Dose Ordered Sig/Bhavna Route PRN Reason Start Time Stop Time Status Last Admin Dose Admin Aspirin (Aspirin 81mg Chew Tab) 324 mg ONCE ONCE PO 08/29/25 12:00 08/29/25 12:01 DC 08/29/25 12:30 Nitroglycerin (Nitrostat) 0.4 mg AD PRN SL CHEST PAIN 08/29/25 12:00 09/28/25 11:59 Vital Signs Date Time Temp Pulse Resp B/P (MAP) Pulse Ox O2 Delivery O2 Flow Rate FiO2 08/29/25 12:19 98.2 94 15 110/56 94 Room Air* 0 21 08/29/25 11:37 97.9 93 18 136/53 96 Room Air 0 HEART Score Response (Comments) Value History: Moderate suspicion (+1) 1 EKG: Normal 0 Age: > 65yrs (+2) 2 Risk Factors: 1-2 risk factors (+1) 1 Total 4 Medical Decision Making MDM MDM: 84-year-old female with a history of hypertension coming in with complaints of intermittent sharp chest pain onset last night. Patient denies having any fever nausea or vomiting. Rates chest pain at this time 5/10. Denies any shortness the breath. Blood work is unremarkable. Cardiac marker negative. EKGs shows no ST elevation or dysrhythmias. Patient has a heart score of four. We will admit for rule out ACS. Spoke to hospitalist RESEARCH PROGRAM ASSISTANT adi Torres to admit. Differential diagnosis: ACS, dehydration, pneumonia Rationale: Tests considered and ordered secondary to shared decision making include: labs, ECG and radiology Previous outside records reviewed: Old ER visits. Risk of complication and/or morbidity or mortality of patient management: None Medications-Per medication reconciliation Need for hospitalization: Patient does meet criteria for hospitalization. Need for emergency major/minor surgery: No There are no social concerns with this patient. Prescription drug management Prescriptions will include symptomatic care Patient's prior external medical records from other ER visits were reviewed by me as indicated. Prior testing and results from previous visits were reviewed. Prior tests were taken into account with medical decision making and resource utilization, independent historian/historians were used to obtain complete medical history. I independently interpreted the test that were performed, results were reviewed by me and considered findings on radiology if ordered. Medical management and examination interpretation discussions were had by me with other qualified healthcare professionals as indicated for the patient's care. DX & DISP Disposition: Inpatient Decision to Admit Date: Aug 29, 2025 Decision to Admit Time: 14:56 Departure Impression: Primary Impression: Chest pain Additional Impression: History of CAD (coronary artery disease) Condition: Stable Referrals: MARY ANN RIVERA MD (PCP) I have reviewed the case, and I agree with, Diagnosis and Plan RAYSHAWN RODRIGUES CNP Aug 29, 2025 14:57
--- NOTE | 2025-08-29 15:43 | HP ---
[facility] HISTORY AND PHYSICAL Date of Service: Aug 29, 2025 Time of Service: 15:43 HISTORY OF PRESENT ILLNESS: [84-year-old female with a history of coronary artery disease (CAD), hypertension, hyperlipidemia, and prior cardiac stents, presenting with intermittent, sharp left-sided chest pain that began the previous night. She describes the pain as 5/10 in intensity, associated with weakness and fatigue, and notes tenderness to palpation over the left chest. She denies palpitations, shortness of breath, fever, nausea, or vomiting. No recent trauma. She was hospitalized for similar symptoms on 07/25/2025; ACS was ruled out at that time, and GI workup was recommended, but she left AMA before EGD could be performed. The ED, she received aspirin 324 mg p.o. x1, the 1st initial troponin I was unremarkable. Her vital signs showed temperature of 97.9, pulse 93, respiratory rate 18, blood pressure 136/53, pulse oximetry 96% on room air. She was referred to the hospitalist for further evaluation and management. ] REVIEW OF SYSTEMS CONSTITUTIONAL: Denies fevers, chills, or night sweats. No unintentional weight loss reported. NEUROLOGICAL: Denies headache, amaurosis fugax, motor weakness, sensory deficit, vertigo/spinning sensation, gait abnormalities, or tremors. ENT: No hearing loss, otalgia, otorrhea, rhinitis, rhinorrhea, hoarseness, or sore throat. CARDIOVASCULAR: Denies any exertional angina, dyspnea on exertion, orthopnea, paroxysmal nocturnal dyspnea, palpitations, life-threatening arrhythmias, claudication. PULMONARY: Denies any shortness of breath, cough, phlegm/sputum, hemoptysis, pleuritic chest pain. SLEEP: Denies morning headaches, daytime somnolence or napping. Denies difficulty falling asleep, staying asleep, waking from sleep. Denies knowledge of snoring. GASTROINTESTINAL: Denies any type of dysphagia to either liquids or solids. Denies nausea, vomiting, pyrosis, early satiety, abdominal pain, diarrhea, constipation, or changes in stool consistency or caliber. Denies coffee-ground emesis, hematemesis, hematochezia, or melanotic stools. GENITOURINARY: Denies frequency, urgency, nocturia, hematuria or incontinence (Storage/Irritative symptoms.) Low urinary stream, straining to void, urinary intermittency or hesitancy, splitting of the voiding stream, terminal dribbling. ENDOCRINOLOGIC: Denies polyuria, polydipsia, polyphagia or heat/cold intolerances. HEMATOLOGIC: Denies thrombophilia/previous clots, or coagulopathy/bleeding disorders. ONCOLOGIC: Denies personal history of malignancy. DERMATOLOGIC: Denies rashes or pruritus. PSYCHIATRIC: Denies any suicidal or homicidal ideation. Denies hallucinations. PAST MEDICAL HISTORY: [Coronary artery disease (CAD) Hyperlipidemia Hypertension Heart disease PAST SURGICAL HIS ] PAST SURGICAL HISTORY: [ Cardiac stents ] PAST SOCIAL HISTORY: [ Lives with her . Denies tobacco, alcohol or illicit drug ] FAMILY HISTORY: [Noncontributory ] Coded Allergies: iodine (Unverified Allergy, Unknown, 07/25/25) PHYSICAL EXAM General: Awake, alert, no acute distress. Head/Face: Normocephalic, atraumatic. Eyes: PERRL, EOMI, vision at baseline. ENT: Oral cavity clear, TMs clear. Neck: Trachea midline, supple, no nuchal rigidity. Cardiovascular: Regular rate/rhythm, normal S1/S2, no murmurs/rubs/gallops, no JVD. Respiratory: Clear to auscultation bilaterally, no distress, no rales/wheezes. Abdomen: Soft, non-tender, non-distended, normal bowel sounds, no guarding/rebound. Skin: Warm, dry, normal turgor, no rash. MSK/Extremities: Pulses equal, no cyanosis, neurovascularly intact, full ROM. Neuro: Alert and oriented x4, GCS 15, strength 5/5, CN II-XII intact, normal cerebellar exam, normal gait. Psych: Normal behavior, mood, affec Vital Sign (Last 24 Hours) 08/29/25 12:19 Temp 98.2 Pulse 94 Resp 15 B/P (MAP) 110/56 Pulse Ox 94 O2 Delivery Room Air* O2 Flow Rate 0 FiO2 21 LABS: CBC: WBC: 8.3 K/uL (normal) Hgb: 14.2 g/dL (normal) Hct: 45.6% (normal) MCV: 99.8 fL (High) mild macrocytosis MCHC: 31.1 g/dL (Low) Platelets: 225 K/uL (normal) MPV: 10.8 fL (High) Neutrophils %: 77.7% (High), Lymphocytes %: 14.9% (Low), but absolute counts normal BMP: Na: 138 mmol/L K: 4.5 mmol/L Cl: 98 mmol/L (Low) CO? (bicarb): 35 mmol/L (High) metabolic alkalosis BUN: 16 mg/dL Cr: 0.8 mg/dL GFR: 73 mL/min/1.73m Glucose: Random: 331 mg/dL (High) HbA1c: 9.1% (High) poorly controlled diabetes Cardiac Markers: Troponin I High Sensitivity: 8 ng/L (12:23), 13 ng/L (15:43) mild upward trend , both within reference range BNP: 58 pg/mL (normal) CBC: WBC: 8.3 K/uL (normal) Hgb: 14.2 g/dL (normal) Hct: 45.6% (normal) MCV: 99.8 fL (High) mild macrocytosis MCHC: 31.1 g/dL (Low) Platelets: 225 K/uL (normal) MPV: 10.8 fL (High) Neutrophils %: 77.7% (High), Lymphocytes %: 14.9% (Low), but absolute counts normal BMP: Na: 138 mmol/L K: 4.5 mmol/L Cl: 98 mmol/L (Low) CO? (bicarb): 35 mmol/L (High) metabolic alkalosis BUN: 16 mg/dL Cr: 0.8 mg/dL GFR: 73 mL/min/1.73m Glucose: Random: 331 mg/dL (High) HbA1c: 9.1% (High) poorly controlled diabetes Cardiac Markers: Troponin I High Sensitivity: 8 ng/L (12:23), 13 ng/L (15:43) mild upward trend, both within reference range BNP: 58 pg/mL (normal) Laboratory: Test 08/29/25 12:23 Range/Units White Blood Count 8.3 4.8-10.8 K/uL Red Blood Count 4.57 4.00-5.50 MIL/uL Hemoglobin 14.2 12.0-16.0 g/dL Hematocrit 45.6 36-48 % Mean Corpuscular Volume 99.8 H 79-99 fL Mean Corpuscular Hemoglobin 31.1 27.0-33.0 pg Mean Corpuscular Hemoglobin Concent 31.1 L 32.0-36.0 g/dL Red Cell Distribution Width 13.6 11.0-15.5 % Platelet Count 225 130-400 K/uL Mean Platelet Volume 10.8 H 7.5-10.5 fL Immature Granulocyte % (Auto) 0.2 0-1 % Neutrophils (%) (Auto) 77.7 H 40.0-77.0 % Lymphocytes (%) (Auto) 14.9 L 21.0-51.0 % Monocytes (%) (Auto) 5.4 3.0-13.0 % Eosinophils (%) (Auto) 1.4 0.0-8.0 % Basophils (%) (Auto) 0.4 0.0-5.0 % Neutrophils # (Auto) 6.4 1.8-7.7 K/uL Lymphocytes # (Auto) 1.2 1.0-4.8 K/uL Monocytes # (Auto) 0.5 0.1-1.0 K/uL Eosinophils # (Auto) 0.12 0.00-0.70 K/uL Basophils # (Auto) 0.03 0.00-0.20 K/uL Absolute Immature Granulocyte (auto 0.02 0-1 K/uL Nucleated Red Blood Cells 0.0 0.0-0.19 % Sodium Level 138 136-145 mmol/L Potassium Level 4.5 3.5-5.1 mmol/L Chloride Level 98 L 101-111 mmol/L Carbon Dioxide Level 35 H 21-32 mmol/L Blood Urea Nitrogen 16 7-18 mg/dL Creatinine 0.8 0.5-1.0 mg/dL Glomerular Filtration Rate Calc 73 >90 mL/min Random Glucose 331 H 70-105 mg/dL Total Calcium 9.5 8.5-10.1 mg/dL Troponin I High Sensitivity 8 4-50 ng/L B-Type Natriuretic Peptide 58 0-100 pg/mL Current Medications Medications (Trade) Dose Ordered Sig/Bhavna Route PRN Reason Start Time Stop Time Status Last Admin Dose Admin Aspirin (Aspirin 81mg Chew Tab) 81 mg DAILY PO 08/30/25 09:00 09/29/25 08:59 UNV Dextrose (D50w) 50 ml AD PRN IV HYPOGLYCEMIA PROTOCOL 08/29/25 16:00 09/28/25 15:59 UNV Glucagon (Glucagon 1mg Kit) 1 mg AD PRN IM HYPOGLYCEMIA PROTOCOL 08/29/25 16:00 09/28/25 15:59 UNV Insulin Human Regular (humuLIN R 100 UNIT/ML 3ML) INSULIN SLIDING SCAL... ACHS SQ 08/29/25 16:30 09/28/25 16:29 UNV Nitroglycerin (Nitrostat) 0.4 mg AD PRN SL CHEST PAIN 08/29/25 12:00 09/28/25 11:59 DIAGNOSTICS / RADIOLOGY: [IMAGING EKG (11:41): Sinus rhythm, rate [address] elevation or dysrhythmias. Chest X-ray (08/29/25 11:44): No acute cardiopulmonary pathology. No mass, infiltrate, effusion, or pneumothorax. Cardiomegaly: Not reported. Impression: No acute findings. ] ASSESSMENT: [Chest pain, rule out ACS Intermittent, non-exertional, reproducible with palpation, no EKG changes, troponin not elevated but mild upward trend. History of CAD and stents, POA Coronary artery disease Known, with prior stents. POA Hypertension Well-documented. POA Hyperlipidemia Well-controlled on current labs. POA Poorly controlled diabetes mellitus HbA1c 9.1%, random glucose 331 mg/dL, POA POA Metabolic alkalosis Elevated CO2, low chloride, likely multifactorial. POA History of prior GI symptoms Prior recommendation for EGD, not completed. POA ] PLAN: Admit to telemetry for continuous cardiac monitoring. Serial troponins and EKGs to monitor for evolving ACS. Continue cardiac medications as appropriate (including isosorbide mononitrate). Monitor and manage hyperglycemia Initiate sliding scale insulin or adjust regimen as needed. Monitor electrolytes and renal function. Symptomatic management for chest pain (nitroglycerin PRN, acetaminophen PRN). If cardiac workup is negative, pursue GI evaluation (consider EGD as previously recommended). Monitor for complications (arrhythmia, heart failure, recurrent pain). Continue home medications as appropriate. Case discussed with DR. SCRUGGS, ABOVE PLAN WAS FORMULATED PATIENT IS A FULL CODE ADVANCED CARE PLANNING 1. Which of the following were discussed? Hospice Care - Yes / No Therapeutic options - Yes / No Advance Directives - Yes / No Other discussions - 2. Discussed with who? PATIENT 3. Voluntary nature of this service was explained to the patient? Yes / No 4. Amount of time spent - ____20 MINS___ 5. Reviewed by Physician? (if this service was performed by NPP) Yes / No ] ATTESTATION BY PHYSICIAN I have seen and examined the patient. I reviewed the documentation, medical decision making, and treatment plan as noted by the mid-level provider above. I agree with the findings and plan of care. ISMAEL SCRUGGS MD, [facility] Aug 29, 2025 15:43
[2025-08-29] MEDS ORDERED: GLUCAGON 1MG KIT 1 MG ML IM PRN (16:00)
[2025-08-29] MEDS ORDERED: DEXTROSE 50%-WATER 50 ML DISP.SYRIN IV PRN (16:00)
[2025-08-29 16:43] LABS: LDL DIRECT 70 mg/dL (0-99)
[2025-08-29] MEDS: 0.9%NACL 1000ML 1,000 ML IV SCH (16:57)
--- NOTE | 2025-08-29 16:57 | EKG ---
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
[2025-08-29 18:08] VITALS: O2SAT 95
[2025-08-29 21:30] VITALS: BP 150/57; PULSE 89; RESP 19; TEMP 98.1
[2025-08-29 22:40] VITALS: O2SAT 94
[2025-08-29 22:51] LABS: APPEARANCE,URINE CLEAR (CLEAR); GLUCOSE, URINE (UA) >=1000 mg/dL (NEGATIVE); LEUKOCYTE ESTERASE ,URINE NEGATIVE Leu/uL (NEGATIVE); NITRATE,URINE NEGATIVE (NEGATIVE); OCCULT BLOOD,URINE NEGATIVE (NEGATIVE)
[2025-08-29 22:52] LABS: ADD UA MICROSCOPIC YES
[2025-08-29 22:53] LABS: SQUAMOUS EPITHELIAL CELL,UR Rare /HPF (0-2)
[2025-08-29 23:23] VITALS: BP 131/64; PULSE 69; RESP 18; TEMP 98.7
[2025-08-30] VITALS (8 sets, daily range): BP systolic 92–152; BP diastolic 45–87; PULSE 73–118; RESP 17–18; TEMP 97.7–98.8; O2SAT 94–98
[2025-08-30 01:27] LABS: NUCLEATED RED BLOOD CELLS 0.0 % (0.0-0.19); PLATELET COUNT (AUTO) 235.0 K/uL (130-400); RED BLOOD CELL COUNT(AUTO) 4.56 MIL/uL (4.00-5.50); RED CELL DISTRIBUTION WIDTH 13.7 % (11.0-15.5); WHITE BLOOD COUNT (AUTO) 9.4 K/uL (4.8-10.8)
[2025-08-30 01:36] LABS: ASPARTATE AMINOTRANSFERASE 16.0 U/L (10-37); CREATININE 0.8 mg/dL (0.5-1.0); GLOMERULAR FILTR. RATE CALC 73.0 mL/min (>90); GLUCOSE,RANDOM 153.0 mg/dL (70-105); SODIUM SERUM 141.0 mmol/L (136-145); TOTAL PROTEIN, SERUM 7.0 g/dL (6.0-8.3); UREA NITROGEN, BLOOD 15.0 mg/dL (7-18)
[2025-08-30] MEDS: ASPIRIN 81MG CHEW TAB PO SCH (09:48)
[2025-08-30] MEDS: ISOSORBIDE MONO 30MG SR TAB PO SCH (09:48)
--- NOTE | 2025-08-30 11:38 | NUR ---
DCP: HOME Sw met with pt, her Dani [phone] daughter Mago Butler [phone]. Pt lives at in mobile home with ramp, with her . Daughter assists pt with her bathing dressing and grooming, helps transportation to MD appts, home management and meal prep as needed. Pt has a cane, shower chair and walker with seat at home. PCP is Prakash Cohen and uses [facility] for rx needs. A this time dcp is home.
--- NOTE | 2025-08-30 14:22 | PN ---
[facility] PROGRESS NOTE Date of Service: Aug 30, 2025 Time of Service: 13:46 SUBJECTIVE: 84-year-old female with a history of coronary artery disease (CAD), hypertension, hyperlipidemia, and prior cardiac stents, presenting with intermittent, sharp left-sided chest pain that began the previous night. She describes the pain as 5/10 in intensity, associated with weakness and fatigue, and notes tenderness to palpation over the left chest. She denies palpitations, shortness of breath, fever, nausea, or vomiting. No recent trauma. She was hospitalized for similar symptoms on 07/25/2025; ACS was ruled out at that time, and GI workup was recommended, but she left AMA before EGD could be performed. In the ED, she received aspirin 324 mg p.o. x1, the 1st initial troponin I was unremarkable. Her vital signs showed temperature of 97.9, pulse 93, respiratory rate 18, blood pressure 136/53, pulse oximetry 96% on room air. She was referred to the hospitalist for further evaluation and management. 08/30/2025: She was evaluated at the bedside this morning. She is AAO x3. no overnight event. As per the patient she says her chest pain has improved. She is hemodynamically stable with her blood pressure 152/57. Labs, WBC 9.4 Hemoglobin 14.5 Platelet 235 troponin 8>13>16, magnesium 1.80, potassium 4.6, sodium 141, HbA1c 9.1, bicarbonate , creatinine 0.8. She is on isosorbide mononitrate 30 mg daily, atorvastatin 10 mg daily, [id number] mg daily. We will consult Cardiology as she has coronary artery disease and had 2 similar a dmission because of the chest pain to see if intervention required. We will also get GI on board with a possible endoscopy that was planned on previous admission. Rest of the the plan as discussed below. REVIEW OF SYSTEMS CONSTITUTIONAL: Denies fevers, chills, or night sweats. No unintentional weight loss reported. NEUROLOGICAL: Denies headache, amaurosis fugax, motor weakness, sensory deficit, vertigo/spinning sensation, gait abnormalities, or tremors. ENT: No hearing loss, otalgia, otorrhea, rhinitis, rhinorrhea, hoarseness, or sore throat. CARDIOVASCULAR: Denies any exertional angina, dyspnea on exertion, orthopnea, paroxysmal nocturnal dyspnea, palpitations. PULMONARY: Denies any shortness of breath, cough, phlegm/sputum, hemoptysis, pleuritic chest pain. SLEEP: Denies morning headaches, daytime somnolence or napping. Denies diffi culty falling asleep, staying asleep, waking from sleep. GASTROINTESTINAL: Denies any type of dysphagia to either liquids or solids. Denies nausea, vomiting GENITOURINARY: Denies frequency, urgency, nocturia, hematuria or incontinence (Storage/Irritative symptoms.) ENDOCRINOLOGIC: Denies polyuria, polydipsia, polyphagia or heat/cold intolerances. HEMATOLOGIC: Denies thrombophilia/previous clots, or coagulopathy/bleeding disorders. ONCOLOGIC: Denies personal history of malignancy. DERMATOLOGIC: Denies rashes or pruritus. PSYCHIATRIC: Denies any suicidal or homicidal ideation. Denies hallucinations. PHYSICAL EXAM General: Awake, alert, no acute distress. Head/Face: Normocephalic, atraumatic. Eyes: PERRL, EOMI, vision at baseline. ENT: Oral cavity clear, TMs clear. Neck: Trachea midline, supple, no nuchal rigidity. Cardiovascular: Regular rate/rhythm, normal S1/S2, no murmurs/rubs/gallops, no JVD. Respiratory: Clear to auscultation bilaterally, no distress, no rales/wheezes. Abdomen: Soft, non-tender, non-distended, normal bowel sounds, no gu arding/rebound. Skin: Warm, dry, normal turgor, no rash. MSK/Extremities: Pulses equal, no cyanosis, neurovascularly intact, full ROM. Neuro: Alert and oriented x4, GCS 15, strength 5/5, CN II-XII intact, normal cerebellar exam, normal gait. Psych: Normal behavior, mood, affec Vital Signs (last 8hr) Date Time Temp Pulse Resp B/P (MAP) Pulse Ox O2 Delivery O2 Flow Rate FiO2 08/30/25 11:45 98.1 90 18 92/58 93 Room Air 08/30/25 10:48 94 Room Air* 0 21 08/30/25 07:58 98.8 73 17 142/45 91 Room Air LABS: Laboratory: Test 08/30/25 10:31 08/30/25 00:28 08/29/25 20:21 08/29/25 15:43 Range/Units Whole Blood Glucose 195 H 70-110 MG/DL White Blood Count 9.4 4.8-10.8 K/uL Red Blood Count 4.56 4.00-5.50 MIL/uL Hemoglobin 14.5 12.0-16.0 g/dL Hematocrit 44.4 36-48 % Mean Corpuscular Volume 97.4 79-99 fL Mean Corpuscular Hemoglobin 31.8 27.0-33.0 pg Mean Corpuscular Hemoglobin Concent 32.7 32.0-36.0 g/dL Red Cell Distribution Width 13.7 11.0-15.5 % Platelet Count 235 130-400 K/uL Mean Platelet Volume 11.2 H 7.5-10.5 fL Nucleated Red Blood Cells 0.0 0.0-0.19 % Sodium Level 141 136-145 mmol/L Potassium Level 4.6 3.5-5.1 mmol/L Chloride Level 101 101-111 mmol/L Carbon Dioxide Level 32 21-32 mmol/L Blood Urea Nitrogen 15 7-18 mg/dL Creatinine 0.8 0.5-1.0 mg/dL Glomerular Filtration Rate Calc 73 >90 mL/min Random Glucose 153 #H 70-105 mg/dL Total Calcium 9.4 8.5-10.1 mg/dL Magnesium Level 1.80 1.80-2.40 mg/dL Total Bilirubin 0.2 0.2-1.0 mg/dL Aspartate Amino Transf (AST/SGOT) 16 10-37 U/L Alanine Aminotransferase (ALT/SGPT) 18 12-78 U/L Alkaline Phosphatase 95 50-136 U/L Troponin I High Sensitivity 16 4-50 ng/L Total Protein 7.0 6.0-8.3 g/dL Albumin 3.2 L 3.5-5.0 g/dL Urine Color LIGHT-YELLOW YELLOW Urine Appearance CLEAR CLEAR Urine pH 7.0 5.0-8.0 Urine Specific Sabin 1.022 1.001-1.031 Urine Protein NEGATIVE NEGATIVE mg/dL Urine Glucose (UA) >=1000 H NEGATIVE mg/dL Urine Ketones NEGATIVE NEGATIVE mg/dL Urine Occult Blood NEGATIVE NEGATIVE Urine Nitrate NEGATIVE NEGATIVE Urine Bilirubin NEGATIVE NEGATIVE mg/dL Urine Urobilinogen 0.2 0.2-1.0 mg/dL Urine Leukocyte Esterase NEGATIVE NEGATIVE Kami/uL Urine RBC 0-1 0-1 /HPF Urine WBC None Seen 0-1 /HPF Urine Squamous Epithelial Cells Rare 0-2 /HPF Urine Bacteria Rare None Seen /HPF Hemoglobin A1c 9.1 H 4.0-6.0 % Estimated Average Glucose (eAG) 214 H 70-126 mg/dL Triglycerides Level 63 30-200 mg/dL Cholesterol Level 174 <200 mg/dL LDL Cholesterol 70 0-99 mg/dL HDL Cholesterol 80 35-85 mg/dL Test 08/29/25 12:23 Range/Units Immature Granulocyte % (Auto) 0.2 0-1 % Neutrophils (%) (Auto) 77.7 H 40.0-77.0 % Lymphocytes (%) (Auto) 14.9 L 21.0-51.0 % Monocytes (%) (Auto) 5.4 3.0-13.0 % Eosinophils (%) (Auto) 1.4 0.0-8.0 % Basophils (%) (Auto) 0.4 0.0-5.0 % Neutrophils # (Auto) 6.4 1.8-7.7 K/uL Lymphocytes # (Auto) 1.2 1.0-4.8 K/uL Monocytes # (Auto) 0.5 0.1-1.0 K/uL Eosinophils # (Auto) 0.12 0.00-0.70 K/uL Basophils # (Auto) 0.03 0.00-0.20 K/uL Absolute Immature Granulocyte (auto 0.02 0-1 K/uL B-Type Natriuretic Peptide 58 0-100 pg/mL Current Medications Medications (Trade) Dose Ordered Sig/Bhavna Route PRN Reason Start Time Stop Time Status Last Admin Dose Admin Acetaminophen (TYLenol 325MG TAB) 650 mg Q4HPRN PRN PO MILD PAIN (1-3) 08/30/25 00:30 09/29/25 00:29 Aspirin (Aspirin 81mg Chew Tab) 81 mg DAILY PO 08/30/25 09:00 09/29/25 08:59 08/30/25 09:48 81 MG Atorvastatin Calcium (LIPItor 10MG) 10 mg DAILY PO 08/30/25 09:00 08/30/25 09:37 DC Atorvastatin Calcium (LIPItor 10MG) 10 mg HS PO 08/31/25 21:00 09/29/25 08:59 Dextrose (D50w) 50 ml AD PRN IV HYPOGLYCEMIA PROTOCOL 08/29/25 16:00 09/28/25 15:59 Donepezil HCl (ARIcept 5MG TAB) 5 mg DAILYDINNER PO 08/30/25 17:00 09/29/25 16:59 Glucagon (Glucagon 1mg Kit) 1 mg AD PRN IM HYPOGLYCEMIA PROTOCOL 08/29/25 16:00 09/28/25 15:59 Home Med (Home Medication) DAILY PO 08/30/25 09:00 09/29/25 08:59 08/30/25 09:54 1 EACH Home Med (Home Medication) DAILYDINNER PO 08/30/25 17:00 09/29/25 16:59 Insulin Human Regular (humuLIN R 100 UNIT/ML 3ML) INSULIN SLIDING SCAL... ACHS SQ 08/29/25 16:30 09/28/25 16:29 08/30/25 11:52 2 UNIT Isosorbide Mononitrate (Imdur 30mg Sr) 30 mg DAILY PO 08/30/25 09:00 09/29/25 08:59 08/30/25 09:48 30 MG Lacosamide (VimPAT) 50 mg BID PO 08/30/25 00:00 09/29/25 00:00 08/30/25 09:48 50 MG Nitroglycerin (Nitrostat) 0.4 mg AD PRN SL CHEST PAIN 08/29/25 12:00 09/28/25 11:59 Risperidone (RisperDAL) 0.5 mg BID PO 08/30/25 09:00 09/29/25 08:59 08/30/25 09:48 0.5 MG Sodium Chloride 1,000 ml @ 75 mls/hr [id number] IV 08/29/25 16:00 09/28/25 15:59 08/29/25 16:57 75 MLS/HR Tizanidine HCl (Tizanidine HCl) 2 mg HS PO 08/30/25 21:00 09/29/25 20:59 DIAGNOSTICS / RADIOLOGY: PATIENT: NADIR SAMANO MR#: [id number] : 1940 SEX: F AGE: 84 LOCATION: [facility] ORDER [id number] STATUS: REG ER REPORT#: [id number] SERVICE 1144 REASON: cp ORDERING PHYSICIAN: RAYSHAWN RODRIGUES CNP PROCEDURE: CXR1VW - CHEST 1VW EXAM: CR Chest, 1 View. CLINICAL HISTORY: cp COMPARISON: None provided. FINDINGS: LUNGS: There is no mass, infiltrate, or acute pulmonary abnormality. PLEURAL SPACES: No evidence of pleural effusion or pneumothorax. MEDIASTINUM: The cardiomediastinal silhouette is within normal limits. BONES: No acute osseous abnormality. IMPRESSION: No acute cardiopulmonary pathology is evident. /[place] DICTATED BY: BROCK CASTILLO Jr., MD DATE: 08/29/251521 ELECTRONICALLY SIGNED BY: BROCK CASTILLO Jr., MD DATE: 08/29/251521 ASSESSMENT: Chest pain, rule out ACS POA Coronary artery disease POA Hypertension POA Hyperlipidemia POA Poorly controlled diabetes mellitus HbA1c 9.1% POA Metabolic alkalosis POA Dementia POA PLAN: Chest pain, rule out ACS POA Coronary artery disease POA Hypertension POA -patient admitted to telemetry. Troponin 8> 13 > 16. EKG no ST-T changes suggestive of ischemia. She has a history of coronary artery disease with stent placed approximately 7 years back. She is on [id number] mg and atorvastatin 10 mg. -continue isosorbide mononitrate 30 mg daily, atorvastatin and aspirin daily. -cardiology on board. We will follow their recs. -GI also consulted for the endoscopy Hyperlipidemia POA -Total cholesterol 174, triglyceride 63, LDL cholesterol 70, HDL cholesterol 80. She is on 10 mg of atorvastatin daily. -continue atorvastatin. Poorly controlled diabetes mellitus POA -HGB A1c 9.1. She do not look to be taking any antidiabetic medications. -we have started her on low-dose sliding scale insulin -we will monitor her blood glucose. Metabolic alkalosis POA -patient also has a history of chest pain along with recurrent emesis for long period of time. Probably frequent emesis as lead to metabolic alkalosis. GI has planned for the endoscopy on the prior admission but patient left AMA. -we will consult the GI for the possible endoscopy to rule out any obvious lesion GI prophylaxis famotidine To prophylaxis SCD ATTESTATION BY PHYSICIAN I have seen and examined the patient. I reviewed the documentation, medical decision making, and treatment plan as noted by the resident physician above. I agree with the findings and plan of care. KAYLEE PHELAN MD, SUNIL MD Aug 30, 2025 14:22
--- NOTE | 2025-08-30 19:18 | CONS ---
[facility] CARDIOLOGY CONSULTATION NOTE Date Patient Seen: Aug 30, 2025 Time of Visit: 19:16 Requesting Physician: [ ] Reason for Consultation: [ ] History of Present Illness: [Beginning Friday the patient was experiencing multiple episodes of chest pain occurring at rest. She describes these as abrupt in onset and abrupt in termination but she can not really describe how many she has had, how frequently they occur, or how long they last. She denies shortness of breath or diaphoresis or dyspnea. A GI evaluation is under way. The patient has a difficult time describing the character of the pain except that it hurts and it radiates from the left precordium into the left shoulder. ] Past Medical History: [Previous coronary stents Hypertension Dyslipidemia ] Past Surgical History: [ Previous coronary stents] Family History: [Noncontributory] Social History: [Bilingual, nonsmoker, present ] Habits: [Never] smoker. [Denies] alcohol consumption. [Denies] illicit drug use Home Meds: [ ] Current Meds: [ ] Review of Systems: CONST: [No fever, fatigue, or weight changes.] EYES: [No recent vision problems.] ENT: [No congestion, ear pain, or sore throat.] C/V: [Admits chest pain, denies palpitations, or edema.] RESP: [No cough, congestion, wheezing or shortness of breath.] GI: [No abdominal pain, nausea, vomiting, constipation, or diarrhea.] : [No incontinence or dysuria.] SKIN: [No rash.] NEURO: [No headache, focal numbness or weakness, dizziness, or seizures.] PSYCH: [No depression or anxiety.] HEME: [No abnormal bruising or bleeding.] LYMPH: [No swollen glands.] Physical Examination: GENERAL: [No acute distress. Elderly, thin and frail] HEAD: [Normal with no signs of head trauma.] EYES: [PERRLA, EOMI, conjunctiva and sclera normal.] ENT: [Hearing grossly intact, normal oropharynx.] NECK: [Supple without JVD. There is no tenderness, lymphadenopathy, or masses. No thyromegaly. Normal carotid upstrokes without bruits.] LUNGS: [Clear breath sounds bilaterally. There are right basilar rales one third of the way up the chest. No wheezes, or rhonchi.] HEART: [Normal rate and rhythm. Normal S1 and S2 without mumurs, gallop or rub.] VASC: [Peripheral pulses +2 bilaterally.] ABD: [Bowel sounds normal, soft, nontender, no masses, no organomegaly. No audible bruits.] : [Not examined] LYMPH: [No lymphadenopathy noted.] EXT: [No clubbing, cyanosis or edema.] SKIN: [No rashes or lesions noted.] NEURO: [Awake, alert, and oriented x3. History is difficult, dementia is suspected, patient has very limited ability to describe time frames, has limited recall, and finds it very difficult to describe the character of her symptoms or there duration. No focal sensory or strength deficits noted.] Vital Signs (last 8hr) Date Time Temp Pulse Resp B/P (MAP) Pulse Ox O2 Delivery O2 Flow Rate FiO2 08/30/25 16:00 97.9 118 18 139/87 96 Room Air 08/30/25 11:45 98.1 90 18 92/58 93 Room Air Laboratory: [ ] Hematology Labs: Test 08/30/25 00:28 08/29/25 12:23 Range/Units White Blood Count 9.4 4.8-10.8 K/uL Red Blood Count 4.56 4.00-5.50 MIL/uL Hemoglobin 14.5 12.0-16.0 g/dL Hematocrit 44.4 36-48 % Mean Corpuscular Volume 97.4 79-99 fL Mean Corpuscular Hemoglobin 31.8 27.0-33.0 pg Mean Corpuscular Hemoglobin Concent 32.7 32.0-36.0 g/dL Red Cell Distribution Width 13.7 11.0-15.5 % Platelet Count 235 130-400 K/uL Mean Platelet Volume 11.2 H 7.5-10.5 fL Nucleated Red Blood Cells 0.0 0.0-0.19 % Immature Granulocyte % (Auto) 0.2 0-1 % Neutrophils (%) (Auto) 77.7 H 40.0-77.0 % Lymphocytes (%) (Auto) 14.9 L 21.0-51.0 % Monocytes (%) (Auto) 5.4 3.0-13.0 % Eosinophils (%) (Auto) 1.4 0.0-8.0 % Basophils (%) (Auto) 0.4 0.0-5.0 % Neutrophils # (Auto) 6.4 1.8-7.7 K/uL Lymphocytes # (Auto) 1.2 1.0-4.8 K/uL Monocytes # (Auto) 0.5 0.1-1.0 K/uL Eosinophils # (Auto) 0.12 0.00-0.70 K/uL Basophils # (Auto) 0.03 0.00-0.20 K/uL Absolute Immature Granulocyte (auto 0.02 0-1 K/uL Chemistry Labs: Test 08/30/25 16:08 08/30/25 00:28 08/29/25 15:43 08/29/25 12:23 Range/Units Whole Blood Glucose 235 H 70-110 MG/DL Sodium Level 141 136-145 mmol/L Potassium Level 4.6 3.5-5.1 mmol/L Chloride Level 101 101-111 mmol/L Carbon Dioxide Level 32 21-32 mmol/L Blood Urea Nitrogen 15 7-18 mg/dL Creatinine 0.8 0.5-1.0 mg/dL Glomerular Filtration Rate Calc 73 >90 mL/min Random Glucose 153 #H 70-105 mg/dL Total Calcium 9.4 8.5-10.1 mg/dL Magnesium Level 1.80 1.80-2.40 mg/dL Total Bilirubin 0.2 0.2-1.0 mg/dL Aspartate Amino Transf (AST/SGOT) 16 10-37 U/L Alanine Aminotransferase (ALT/SGPT) 18 12-78 U/L Alkaline Phosphatase 95 50-136 U/L Troponin I High Sensitivity 16 4-50 ng/L Total Protein 7.0 6.0-8.3 g/dL Albumin 3.2 L 3.5-5.0 g/dL Hemoglobin A1c 9.1 H 4.0-6.0 % Estimated Average Glucose (eAG) 214 H 70-126 mg/dL Triglycerides Level 63 30-200 mg/dL Cholesterol Level 174 <200 mg/dL LDL Cholesterol 70 0-99 mg/dL HDL Cholesterol 80 35-85 mg/dL B-Type Natriuretic Peptide 58 0-100 pg/mL Diagnostics / Radiology: [Copy/Paste Echos/Imaging Report here] Assessment: [Confusing history in a patient with a history of known coronary disease, symptoms sound likely to be chest wall discomfort but could be of GI or cardiac origin. ] Plan: [Chemical stress sestamibi tomorrow ] JOSE ALFREDO JACOBSEN MD Aug 30, 2025 19:18
--- NOTE | 2025-08-30 21:14 | CONS ---
GASTROENTEROLOGY CONSULTATION NOTE Date of Consultation: Aug 30, 2025 Time of Consultation: 21:14 History of Present Illness: This is an 84-year-old female with past medical history of CAD, hypertension, hyperlipidemia, prior cardiac stents who presented due to left-sided chest pain. Patient was seen by cardiology requesting GI evaluation and we were called for this reason. Review of Systems: CONSTITUTIONAL: No malaise or change in sensation of wellbeing. ENMT: No rhinorrhea, otorrhea, sinus pain, ear ache. CARDIOVASCULAR: No angina, palpitations, orthopnea or paroxysmal dyspnea. RESPIRATORY: No SOB. GASTROINTESTINAL: No abdominal pain, nausea, vomiting, diarrhea, hematemesis, melena or change in the patient's habitual bowel movements consistency/number. GENITOURINARY: No dysuria, hematuria or change in bladder continence. MUSCULOSKELETAL: No new muscle pain or decrease in muscular strength. No new joint swelling, redness or tenderness. SKIN: No new rash. Past Medical History: [ ] Past Surgical History: [ ] Past Social History: [ ] Family History: [ ] Coded Allergies: iodine (Unverified Allergy, Unknown, 07/25/25) Physical Exam: GEN: Awake, alert, oriented in person, time and place, and in no acute distress. HEENT: No sinus tenderness. Tympanic membranes were not examined. No rhinorrhea. Oral pharyngeal mucosa is pink, moist and within normal limits. Neck is supple with no cervical lymphadenopathy, thyromegaly or JVD. CHEST: Inspection, palpation and percussion of the chest were unremarkable. Lung auscultation revealed normal breath sounds bilaterally. CARDIAC: PMI is within normal limits. Heart sounds are regular. Normal S1, S2. No gallop or murmur. ABD: Soft, non-tender and not distended. No peritoneal signs on palpation. No organomegaly. Normal bowel sounds. EXT: No cyanosis or clubbing. No edema. SKIN: Intact. No rashes. JOINTS: No evidence of synovitis or acute arthritis. NEURO: Alert and oriented to name, place and person. Cranial nerve examination is unremarkable. No focal motor deficits. Normal speech. Gait is normal. Strength is normal. Vital Sign (Last 24 Hours) 08/30/25 08/30/25 10:48 19:35 Temp 98.4 Pulse 96 Resp 18 B/P (MAP) 104/62 Pulse Ox 98 O2 Delivery Room Air O2 Flow Rate 0 FiO2 21 Laboratory: [ ] Laboratory: Test 08/30/25 19:46 08/30/25 00:28 08/29/25 20:21 08/29/25 15:43 Range/Units Whole Blood Glucose 266 H 70-110 MG/DL White Blood Count 9.4 4.8-10.8 K/uL Red Blood Count 4.56 4.00-5.50 MIL/uL Hemoglobin 14.5 12.0-16.0 g/dL Hematocrit 44.4 36-48 % Mean Corpuscular Volume 97.4 79-99 fL Mean Corpuscular Hemoglobin 31.8 27.0-33.0 pg Mean Corpuscular Hemoglobin Concent 32.7 32.0-36.0 g/dL Red Cell Distribution Width 13.7 11.0-15.5 % Platelet Count 235 130-400 K/uL Mean Platelet Volume 11.2 H 7.5-10.5 fL Nucleated Red Blood Cells 0.0 0.0-0.19 % Sodium Level 141 136-145 mmol/L Potassium Level 4.6 3.5-5.1 mmol/L Chloride Level 101 101-111 mmol/L Carbon Dioxide Level 32 21-32 mmol/L Blood Urea Nitrogen 15 7-18 mg/dL Creatinine 0.8 0.5-1.0 mg/dL Glomerular Filtration Rate Calc 73 >90 mL/min Random Glucose 153 #H 70-105 mg/dL Total Calcium 9.4 8.5-10.1 mg/dL Magnesium Level 1.80 1.80-2.40 mg/dL Total Bilirubin 0.2 0.2-1.0 mg/dL Aspartate Amino Transf (AST/SGOT) 16 10-37 U/L Alanine Aminotransferase (ALT/SGPT) 18 12-78 U/L Alkaline Phosphatase 95 50-136 U/L Troponin I High Sensitivity 16 4-50 ng/L Total Protein 7.0 6.0-8.3 g/dL Albumin 3.2 L 3.5-5.0 g/dL Urine Color LIGHT-YELLOW YELLOW Urine Appearance CLEAR CLEAR Urine pH 7.0 5.0-8.0 Urine Specific [place] 1.022 1.001-1.031 Urine Protein NEGATIVE NEGATIVE mg/dL Urine Glucose (UA) >=1000 H NEGATIVE mg/dL Urine Ketones NEGATIVE NEGATIVE mg/dL Urine Occult Blood NEGATIVE NEGATIVE Urine Nitrate NEGATIVE NEGATIVE Urine Bilirubin NEGATIVE NEGATIVE mg/dL Urine Urobilinogen 0.2 0.2-1.0 mg/dL Urine Leukocyte Esterase NEGATIVE NEGATIVE Kami/uL Urine RBC 0-1 0-1 /HPF Urine WBC None Seen 0-1 /HPF Urine Squamous Epithelial Cells Rare 0-2 /HPF Urine Bacteria Rare None Seen /HPF Hemoglobin A1c 9.1 H 4.0-6.0 % Estimated Average Glucose (eAG) 214 H 70-126 mg/dL Triglycerides Level 63 30-200 mg/dL Cholesterol Level 174 <200 mg/dL LDL Cholesterol 70 0-99 mg/dL HDL Cholesterol 80 35-85 mg/dL Test 08/29/25 12:23 Range/Units Immature Granulocyte % (Auto) 0.2 0-1 % Neutrophils (%) (Auto) 77.7 H 40.0-77.0 % Lymphocytes (%) (Auto) 14.9 L 21.0-51.0 % Monocytes (%) (Auto) 5.4 3.0-13.0 % Eosinophils (%) (Auto) 1.4 0.0-8.0 % Basophils (%) (Auto) 0.4 0.0-5.0 % Neutrophils # (Auto) 6.4 1.8-7.7 K/uL Lymphocytes # (Auto) 1.2 1.0-4.8 K/uL Monocytes # (Auto) 0.5 0.1-1.0 K/uL Eosinophils # (Auto) 0.12 0.00-0.70 K/uL Basophils # (Auto) 0.03 0.00-0.20 K/uL Absolute Immature Granulocyte (auto 0.02 0-1 K/uL B-Type Natriuretic Peptide 58 0-100 pg/mL Current Medications Medications (Trade) Dose Ordered Sig/Bhavna Route PRN Reason Start Time Stop Time Status Last Admin Dose Admin Acetaminophen (TYLenol 325MG TAB) 650 mg Q4HPRN PRN PO MILD PAIN (1-3) 08/30/25 00:30 09/29/25 00:29 Aspirin (Aspirin 81mg Chew Tab) 81 mg DAILY PO 08/30/25 09:00 09/29/25 08:59 08/30/25 09:48 81 MG Atorvastatin Calcium (LIPItor 10MG) 10 mg DAILY PO 08/30/25 09:00 08/30/25 09:37 DC Atorvastatin Calcium (LIPItor 10MG) 10 mg HS PO 08/31/25 21:00 09/29/25 08:59 Dextrose (D50w) 50 ml AD PRN IV HYPOGLYCEMIA PROTOCOL 08/29/25 16:00 09/28/25 15:59 Donepezil HCl (ARIcept 5MG TAB) 5 mg DAILYDINNER PO 08/30/25 17:00 09/29/25 16:59 08/30/25 16:58 5 MG Famotidine (Pepcid 20mg Tab) 20 mg Q48H PO 08/30/25 21:00 09/29/25 20:59 Glucagon (Glucagon 1mg Kit) 1 mg AD PRN IM HYPOGLYCEMIA PROTOCOL 08/29/25 16:00 09/28/25 15:59 Home Med (Home Medication) DAILY PO 08/30/25 09:00 09/29/25 08:59 08/30/25 09:54 1 EACH Home Med (Home Medication) DAILYDINNER PO 08/30/25 17:00 09/29/25 16:59 08/30/25 17:04 1 EACH Insulin Human Regular (humuLIN R 100 UNIT/ML 3ML) INSULIN SLIDING SCAL... ACHS SQ 08/29/25 16:30 09/28/25 16:29 08/30/25 17:02 4 UNIT Isosorbide Mononitrate (Imdur 30mg Sr) 30 mg DAILY PO 08/30/25 09:00 09/29/25 08:59 08/30/25 09:48 30 MG Lacosamide (VimPAT) 50 mg BID PO 08/30/25 00:00 09/29/25 00:00 08/30/25 09:48 50 MG Nitroglycerin (Nitrostat) 0.4 mg AD PRN SL CHEST PAIN 08/29/25 12:00 09/28/25 11:59 Risperidone (RisperDAL) 0.5 mg BID PO 08/30/25 09:00 09/29/25 08:59 08/30/25 09:48 0.5 MG Sodium Chloride 1,000 ml @ 75 mls/hr [id number] IV 08/29/25 16:00 09/28/25 15:59 08/29/25 16:57 75 MLS/HR Tizanidine HCl (Tizanidine HCl) 2 mg HS PO 08/30/25 21:00 09/29/25 20:59 Zolpidem Tartrate (AmbIEN) 5 mg HSPRN PRN PO sleep 08/30/25 14:00 09/29/25 13:59 Diagnostics / Radiology: [COPY/PASTE HERE IF NO REPORTS PLEASE DELETE SECTION] Assessment: Epigastric pain Heartburn Plan: EGD in am LAN RICHEYP Aug 30, 2025 21:14
[2025-08-30] MEDS: FAMOTIDINE 20MG TAB PO SCH (21:18)
[2025-08-30] MEDS: TIZANIDINE HCL 2 MG TABLET PO SCH (21:18)
[2025-08-31] VITALS (16 sets, daily range): BP systolic 90–143; BP diastolic 41–82; PULSE 65–101; RESP 15–18; TEMP 97.5–98; O2SAT 95
[2025-08-31 05:49] LABS: IMMATURE GRANULOCYTE ABSOLUTE 0.02 K/uL (0-1); NUCLEATED RED BLOOD CELLS 0.0 % (0.0-0.19); PLATELET COUNT (AUTO) 219 K/uL (130-400); RED BLOOD CELL COUNT(AUTO) 4.07 MIL/uL (4.00-5.50); RED CELL DISTRIBUTION WIDTH 13.9 % (11.0-15.5); WHITE BLOOD COUNT (AUTO) 7.6 K/uL (4.8-10.8)
[2025-08-31 06:00] LABS: CREATININE 0.8 mg/dL (0.5-1.0); GLOMERULAR FILTR. RATE CALC 73.0 mL/min (>90); GLUCOSE,RANDOM 137.0 mg/dL (70-105); SODIUM SERUM 142.0 mmol/L (136-145); UREA NITROGEN, BLOOD 24.0 mg/dL (7-18)
--- NOTE | 2025-08-31 06:47 | NUR ---
RAD NUCLEAR MEDICINE PATIENT WAS TAKEN TO GI LAB NURSE CHELSEA MADE AWARE AT [phone]
[2025-08-31] MEDS: REGADENOSON 0.4 MG/5 ML PF SYG IVP ONE (11:25)
--- NOTE | 2025-08-31 14:24 | PN ---
[facility] PROGRESS NOTE Date of Service: Aug 31, 2025 Time of Service: 14:03 SUBJECTIVE: 84-year-old female with a history of coronary artery disease (CAD), hypertension, hyperlipidemia, and prior cardiac stents, presenting with intermittent, sharp left-sided chest pain that began the previous night. She describes the pain as 5/10 in intensity, associated with weakness and fatigue, and notes tenderness to palpation over the left chest. She denies palpitations, shortness of breath, fever, nausea, or vomiting. No recent trauma. She was hospitalized for similar symptoms on 07/25/2025; ACS was ruled out at that time, and GI workup was recommended, but she left AMA before EGD could be performed. In the ED, she received aspirin 324 mg p.o. x1, the 1st initial troponin I was unremarkable. Her vital signs showed temperature of 97.9, pulse 93, respiratory rate 18, blood pressure 136/53, pulse oximetry 96% on room air. She was referred to the hospitalist for further evaluation and management. 08/30/2025: She was evaluated at the bedside this morning. She is AAO x3. no overnight event. As per the patient she says her chest pain has improved. She is hemodynamically stable with her blood pressure 152/57. Labs, WBC 9.4 Hemoglobin 14.5 Platelet 235 troponin 8>13>16, magnesium 1.80, potassium 4.6, sodium 141, HbA1c 9.1, bicarbonate , creatinine 0.8. She is on isosorbide mononitrate 30 mg daily, atorvastatin 10 mg daily, [id number] mg daily. We will consult Cardiology as she has coronary artery disease and had 2 similar admission because of the chest pain to see if intervention required. We will also get GI on board with a possible endoscopy that was planned on previous admission. Rest of the the plan as discussed below. 08/31/2025: She was evaluated at the bedside this morning. She is AAO x3. no overnight event noted. As per the patient's she did not complain of chest pain. She is hemodynamically stable. Labs WBC, 7.6, hemoglobin 12.6, platelet 19, sodium 142, potassium 3.9, magnesium 1.80, calcium 9, chloride 104, bicarbonate 31, creatinine 0.8. She got upper GI endoscopy today which revealed gastritis with erosion and duodenum biopsy was taken. Cardiology was consulted for her chest pain and was recommended to have chemical stress test today. She is on isosorbide mononitrate, atorvastatin, aspirin, risperidone, donepezil, tizanidine. Rest of the plan as discussed below. REVIEW OF SYSTEMS CONSTITUTIONAL: Denies fevers, chills, or night sweats. No unintentional weight loss reported. NEUROLOGICAL: Denies headache, amaurosis fugax, motor weakness, sensory deficit, vertigo/spinning sensation, gait abnormalities, or tremors. ENT: No hearing loss, otalgia, otorrhea, rhinitis, rhinorrhea, hoarseness, or sore throat. CARDIOVASCULAR: Denies any exertional angina, dyspnea on exertion, orthopnea, paroxysmal nocturnal dyspnea, palpitations. PULMONARY: Denies any shortness of breath, cough, phlegm/sputum, hemoptysis, pleuritic chest pain. SLEEP: Denies morning headaches, daytime somnolence or napping. Denies difficulty falling asleep, staying asleep, waking from sleep. GASTROINTESTINAL: Denies any type of dysphagia to either liquids or solids. Denies nausea, vomiting GENITOURINARY: Denies frequency, urgency, nocturia, hematuria or incontinence (Storage/Irritative symptoms.) ENDOCRINOLOGIC: Denies polyuria, polydipsia, polyphagia or heat/cold intoler ances. HEMATOLOGIC: Denies thrombophilia/previous clots, or coagulopathy/bleeding disorders. ONCOLOGIC: Denies personal history of malignancy. DERMATOLOGIC: Denies rashes or pruritus. PSYCHIATRIC: Denies any suicidal or homicidal ideation. Denies hallucinations. PHYSICAL EXAM General: Awake, alert, no acute distress. Head/Face: Normocephalic, atraumatic. Eyes: PERRL, EOMI, vision at baseline. ENT: Oral cavity clear, TMs clear. Neck: Trachea midline, supple, no nuchal rigidity. Cardiovascular: Regular rate/rhythm, normal S1/S2, no murmurs/rubs/gallops, no JVD. Respiratory: Clear to auscultation bilaterally, no distress, no rales/wheezes. Abdomen: Soft, non-tender, non-distended, normal bowel sounds, no guarding/rebound. Skin: Warm, dry, normal turgor, no rash. MSK/Extremities: Pulses equal, no cyanosis, neurovascularly intact, full ROM. Neuro: Alert and oriented x4, GCS 15, strength 5/5, CN II-XII intact, normal cerebellar exam, normal gait. Psych: Normal behavior, mood, affec Vital Signs (last 8hr) Date Time Temp Pulse Resp B/P (MAP) Pulse Ox O2 Delivery O2 Flow Rate FiO2 08/31/25 13:48 Mask 08/31/25 13:47 Mask 10.0 08/31/25 08:37 97.9 75 16 132/68 95 Room Air 08/31/25 08:32 78 17 137/63 94 Room Air 08/31/25 08:27 76 16 124/71 95 Room Air 08/31/25 08:22 79 15 114/66 96 Room Air 08/31/25 08:17 75 17 105/55 97 Room Air 08/31/25 08:12 79 16 99/51 97 Room Air 08/31/25 08:07 97.5 78 15 101/41 100 Nonrebreathing Mask 10.0 LABS: Laboratory: Test 08/31/25 05:39 08/31/25 05:21 08/30/25 00:28 08/29/25 20:21 Range/Units White Blood Count 7.6 4.8-10.8 K/uL Red Blood Count 4.07 4.00-5.50 MIL/uL Hemoglobin 12.6 12.0-16.0 g/dL Hematocrit 39.3 36-48 % Mean Corpuscular Volume 96.6 79-99 fL Mean Corpuscular Hemoglobin 31.0 27.0-33.0 pg Mean Corpuscular Hemoglobin Concent 32.1 32.0-36.0 g/dL Red Cell Distribution Width 13.9 11.0-15.5 % Platelet Count 219 130-400 K/uL Mean Platelet Volume 10.6 H 7.5-10.5 fL Immature Granulocyte % (Auto) 0.3 0-1 % Neutrophils (%) (Auto) 63.0 40.0-77.0 % Lymphocytes (%) (Auto) 27.7 21.0-51.0 % Monocytes (%) (Auto) 6.0 3.0-13.0 % Eosinophils (%) (Auto) 2.6 0.0-8.0 % Basophils (%) (Auto) 0.4 0.0-5.0 % Neutrophils # (Auto) 4.8 1.8-7.7 K/uL Lymphocytes # (Auto) 2.1 1.0-4.8 K/uL Monocytes # (Auto) 0.5 0.1-1.0 K/uL Eosinophils # (Auto) 0.20 0.00-0.70 K/uL Basophils # (Auto) 0.03 0.00-0.20 K/uL Absolute Immature Granulocyte (auto 0.02 0-1 K/uL Nucleated Red Blood Cells 0.0 0.0-0.19 % Sodium Level 142 136-145 mmol/L Potassium Level 3.9 3.5-5.1 mmol/L Chloride Level 104 101-111 mmol/L Carbon Dioxide Level 31 21-32 mmol/L Blood Urea Nitrogen 24 H 7-18 mg/dL Creatinine 0.8 0.5-1.0 mg/dL Glomerular Filtration Rate Calc 73 >90 mL/min Random Glucose 137 H 70-105 mg/dL Total Calcium 9.0 8.5-10.1 mg/dL Magnesium Level 1.80 1.80-2.40 mg/dL Whole Blood Glucose 132 #H 70-110 MG/DL Total Bilirubin 0.2 0.2-1.0 mg/dL Aspartate Amino Transf (AST/SGOT) 16 10-37 U/L Alanine Aminotransferase (ALT/SGPT) 18 12-78 U/L Alkaline Phosphatase 95 50-136 U/L Troponin I High Sensitivity 16 4-50 ng/L Total Protein 7.0 6.0-8.3 g/dL Albumin 3.2 L 3.5-5.0 g/dL Urine Color LIGHT-YELLOW YELLOW Urine Appearance CLEAR CLEAR Urine pH 7.0 5.0-8.0 Urine Specific [place] 1.022 1.001-1.031 Urine Protein NEGATIVE NEGATIVE mg/dL Urine Glucose (UA) >=1000 H NEGATIVE mg/dL Urine Ketones NEGATIVE NEGATIVE mg/dL Urine Occult Blood NEGATIVE NEGATIVE Urine Nitrate NEGATIVE NEGATIVE Urine Bilirubin NEGATIVE NEGATIVE mg/dL Urine Urobilinogen 0.2 0.2-1.0 mg/dL Urine Leukocyte Esterase NEGATIVE NEGATIVE Kami/uL Urine RBC 0-1 0-1 /HPF Urine WBC None Seen 0-1 /HPF Urine Squamous Epithelial Cells Rare 0-2 /HPF Urine Bacteria Rare None Seen /HPF Test 08/29/25 15:43 Range/Units Hemoglobin A1c 9.1 H 4.0-6.0 % Estimated Average Glucose (eAG) 214 H 70-126 mg/dL Triglycerides Level 63 30-200 mg/dL Cholesterol Level 174 <200 mg/dL LDL Cholesterol 70 0-99 mg/dL HDL Cholesterol 80 35-85 mg/dL Current Medications Medications (Trade) Dose Ordered Sig/Bhavna Route PRN Reason Start Time Stop Time Status Last Admin Dose Admin Acetaminophen (TYLenol 325MG TAB) 650 mg Q4HPRN PRN PO MILD PAIN (1-3) 08/30/25 00:30 09/29/25 00:29 Aspirin (Aspirin 81mg Chew Tab) 81 mg DAILY PO 08/30/25 09:00 09/29/25 08:59 08/30/25 09:48 81 MG Atorvastatin Calcium (LIPItor 10MG) 10 mg DAILY PO 08/30/25 09:00 08/30/25 09:37 DC Atorvastatin Calcium (LIPItor 10MG) 10 mg HS PO 08/31/25 21:00 09/29/25 08:59 Dextrose (D50w) 50 ml AD PRN IV HYPOGLYCEMIA PROTOCOL 08/29/25 16:00 09/28/25 15:59 Donepezil HCl (ARIcept 5MG TAB) 5 mg DAILYDINNER PO 08/30/25 17:00 09/29/25 16:59 08/30/25 16:58 5 MG Famotidine (Pepcid 20mg Tab) 20 mg Q48H PO 08/30/25 21:00 08/31/25 08:43 DC 08/30/25 21:18 20 MG Glucagon (Glucagon 1mg Kit) 1 mg AD PRN IM HYPOGLYCEMIA PROTOCOL 08/29/25 16:00 09/28/25 15:59 Home Med (Home Medication) DAILY PO 08/30/25 09:00 09/29/25 08:59 08/30/25 09:54 1 EACH Home Med (Home Medication) DAILYDINNER PO 08/30/25 17:00 09/29/25 16:59 08/30/25 17:04 1 EACH Insulin Human Regular (humuLIN R 100 UNIT/ML 3ML) INSULIN SLIDING SCAL... ACHS SQ 08/29/25 16:30 09/28/25 16:29 08/30/25 21:21 5 UNIT Isosorbide Mononitrate (Imdur 30mg Sr) 30 mg DAILY PO 08/30/25 09:00 09/29/25 08:59 08/31/25 11:46 30 MG Lacosamide (VimPAT) 50 mg BID PO 08/30/25 00:00 09/29/25 00:00 08/31/25 11:45 50 MG Nitroglycerin (Nitrostat) 0.4 mg AD PRN SL CHEST PAIN 08/29/25 12:00 09/28/25 11:59 Pantoprazole Sodium (PROTonix 40MG INJ) 40 mg DAILY IVP 08/31/25 09:00 09/30/25 08:59 08/31/25 09:05 40 MG Risperidone (RisperDAL) 0.5 mg BID PO 08/30/25 09:00 09/29/25 08:59 08/31/25 11:45 0.5 MG Sodium Chloride 1,000 ml @ 75 mls/hr [id number] IV 08/29/25 16:00 09/28/25 15:59 08/31/25 09:05 75 MLS/HR Tizanidine HCl (Tizanidine HCl) 2 mg HS PO 08/30/25 21:00 09/29/25 20:59 08/30/25 21:18 2 MG Zolpidem Tartrate (AmbIEN) 5 mg HSPRN PRN PO sleep 08/30/25 14:00 09/29/25 13:59 08/30/25 21:18 5 MG DIAGNOSTICS / RADIOLOGY: [ ] ASSESSMENT: Chest pain, rule out ACS POA Coronary artery disease POA Hypertension POA Hyperlipidemia POA Poorly controlled diabetes mellitus HbA1c 9.1% POA Metabolic alkalosis POA Dementia POA PLAN: Chest pain, rule out ACS POA Coronary artery disease POA Hypertension POA -patient admitted to telemetry. Troponin 8> 13 > 16. EKG no ST-T changes suggestive of ischemia. She has a history of coronary artery disease with stent placed approximately 7 years back. She is on mg and atorvastatin 10 mg. -continue isosorbide mononitrate 30 mg daily, atorvastatin and aspirin daily. -cardiology recommended for the chemical stress test. -she also underwent upper GI endoscopy which revealed gastritis and erosion in the duodenum. Recommended to start on Protonix 40 mg daily. Hyperlipidemia POA -Total cholesterol 174, triglyceride 63, LDL cholesterol 70, HDL cholesterol 80. She is on 10 mg of atorvastatin daily. -continue atorvastatin. Poorly controlled diabetes mellitus POA -HGB A1c 9.1. She do not look to be taking any antidiabetic medications. -we have started her on low-dose sliding scale insulin -we will monitor her blood glucose. Metabolic alkalosis POA -patient also has a history of chest pain along with recurrent emesis for long period of time. Probably frequent emesis as lead to metabolic alkalosis. GI has planned for the endoscopy on the prior admission but patient left AMA. -we will consult the GI for the possible endoscopy to rule out any obvious lesion GI prophylaxis famotidine To prophylaxis SCD ATTESTATION BY PHYSICIAN I have seen and examined the patient. I reviewed the documentation, medical decision making, and treatment plan as noted by the resident physician above. I agree with the findings and plan of care. KAYLEE PHELAN MD, SUNIL MD Aug 31, 2025 14:24
--- NOTE | 2025-08-31 16:10 | HMCSR ---
APPROVED REPORT Height: 5 ft 1in Weight: 121 lbs TEST INDICATIONS Chest Pain The imaging protocol used to acquire images was Rest Tc-99m/stress Tc-99m 1 day Consent: The procedure was explained and understood by the patient. Informerd consent was witnessed by Kvng Flores RN First, low dose rest was performed then high dose stress. RESTING DATA: The resting ekg shows: NSR Rest SPECT myocardial perfusion imaging was performed in supine position minutes following the intravenous injection of 11 mCi of Tc-99 Sestamibi. Time of rest injection: 09:05: Date: 08/31/2025 PHARMACOLOGIC STRESS: Pharmacologic stress test was performed by injecting regadenoson 0.4 mg IV push followed by the intravenous injection of 29 mCi of Tc-99 Sestamibi. Time of stress injection: 11:11: Date: 08/31/2025 Heart Rate at time of stress injection: 78 bpm. Gated Stress SPECT was performed 60 minutes after stress injection. The images were gated to evaluate regional wall motion and calculate left ventricular ejection fraction. STRESS DETAILS Reason for Termination: Infusion complete Stress Symptoms: Dyspnea Max HR Achieved: 117 bpm % of APMHR Achieved: 100 Max Blood Pressure: 174/57 mmHg Stress ECG: Tachycardia Arrhythmia: No. ST Change: No. Study quality was fair. Artifact: motion artifact, diaphragmatic artifact LEFT VENTRICLE Size: The left ventricular size is small. Systolic Function:The left ventricular systolic function is normal. Wall Motion: No regional wall motion abnormalities noted. The left ventricular ejection fraction was calculated to be >70%.TID = . LV PERFUSION The rest and stress images show normal perfusion. No reversible ischemia or areas of inferior proceed. No obvious TID. RV Size/Shape The right ventricle was not well-visualized. IMPRESSION Stress ECG Summary: Nondiagnostic Conclusion Normal Lexiscan stress test The rest and stress images show normal perfusion. No reversible ischemia or areas of inferior proceed. No obvious TID. The left ventricular size is small. No regional wall motion abnormalities noted. The left ventricular systolic function is normal. Post stress LVEF was calculated to be > 70%. Stress ECG Summary: Nondiagnostic Study indicates a low risk for cardiovascular events.
--- NOTE | 2025-08-31 18:16 | DS ---
Discharge Summary Hospital Course Summary: 84-year-old female with a history of coronary artery disease (CAD), hypertension, hyperlipidemia, and prior cardiac stents, presenting with intermittent, sharp left-sided chest pain that began the previous night. She describes the pain as 5/10 in intensity, associated with weakness and fatigue, and notes tenderness to palpation over the left chest. She denies palpitations, shortness of breath, fever, nausea, or vomiting. No recent trauma. She was hospitalized for similar symptoms on 07/25/2025; ACS was ruled out at that time, and GI workup was recommended, but she left AMA before EGD could be performed. In the ED, she received aspirin 324 mg p.o. x1, the 1st initial troponin I was unremarkable. Her vital signs showed temperature of 97.9, pulse 93, respiratory rate 18, blood pressure 136/53, pulse oximetry 96% on room air. She was referred to the hospitalist for further evaluation and management. 08/30/2025: She was evaluated at the bedside this morning. She is AAO x3. no overnight event. As per the patient she says her chest pain has improved. She is hemodynamically stable with her blood pressure 152/57. Labs, WBC 9.4 Hemoglobin 14.5 Platelet 235 troponin 8>13>16, magnesium 1.80, potassium 4.6, sodium 141, HbA1c 9.1, bicarbonate , creatinine 0.8. She is on isosorbide monon itrate 30 mg daily, atorvastatin 10 mg daily, heafgep45 mg daily. We will consult Cardiology as she has coronary artery disease and had 2 similar admission because of the chest pain to see if intervention required. We will also get GI on board with a possible endoscopy that was planned on previous admission. 08/31/2025: She was evaluated at the bedside this morning. She is AAO x3. no overnight event noted. As per the patient's she did not complain of chest pain. She is hemodynamically stable. Labs WBC, 7.6, hemoglobin 12.6, platelet 19, sodium 142, potassium 3.9, magnesium 1.80, calcium 9, chloride 104, bicarbonate 31, creatinine 0.8. She got upper GI endoscopy today which revealed gastritis with erosion in the duodenum biopsy was taken. Cardiology was consulted for her chest pain and recommended to have chemical stress test today. She is on isosor bide mononitrate, atorvastatin, aspirin, risperidone, donepezil, tizanidine. The Lexiscan result was normal with no reversible ischemia or areas of inferior proceed no obvious t.i.d. yesterday indicated a low risk for cardiovascular event. As patient is clinically doing fine without any chest pain or shortness of breath, she is stable enough to be discharged to her home today. She will see GI doctor in 1-2 weeks with the biopsy report. For gastritis she will also continue pantoprazole 40 mg daily for 30 days. She will also follow up to cardiology in 1-2 weeks. He will follow up to her PCP in 2-3 days. She is advised to continue her home medications including aspirin. Community Outreach Advocate(s): GI CONSULT: Assessment: Epigastric pain Heartburn Plan: EGD in am CARDIOLOGY CONSULT: Assessment: [Confusing history in a patient with a history of known coronary disease, symptoms sound likely to be chest wall discomfort but could be of GI or cardiac origin. ] Plan: [Chemical stress sestamibi tomorrow ] Procedure(s): PATIENT: NADIR SAMANO MR#: [id number] : 1940 SEX: F AGE: 84 LOCATION: [facility] ORDER 21 STATUS: ADM IN REPORT#: [id number] SERVICE [id number] REASON: chest pain/CAD ORDERING PHYSICIAN: JOSE ALFREDO JACOBSEN MD PROCEDURE: CARD CHYNA - NM LEXISCAN CARDIOLITE APPROVED REPORT Height: 5 ft 1in Weight: 121 lbs TEST INDICATIONS Chest Pain The imaging protocol used to acquire images was Rest Tc-99m/stress Tc-99m 1 day Consent: The procedure was explained and understood by the patient. Informerd consent was witnessed by Kvng Flores RN First, low dose rest was performed then high dose stress. RESTING DATA: The resting ekg shows: NSR Rest SPECT myocardial perfusion imaging was performed in supine position minutes following the intravenous injection of 11 mCi of Tc-99 Sestamibi. Time of rest injection: 09:05: Date: 08/31/2025 PHARMACOLOGIC STRESS: Pharmacologic stress test was performed by injecting regadenoson 0.4 mg IV push followed by the intravenous injection of 29 mCi of Tc-99 Sestamibi. Time of stress injection: 11:11: Date: 08/31/2025 Heart Rate at time of stress injection: 78 bpm. Gated Stress SPECT was performed 60 minutes after stress injection. The images were gated to evaluate regional wall motion and calculate left ventricular ejection fraction. STRESS DETAILS Reason for Termination: Infusion complete Stress Symptoms: Dyspnea Max HR Achieved: 117 bpm % of APMHR Achieved: 100 Max Blood Pressure: 174/57 mmHg Stress ECG: Tachycardia Arrhythmia: No. ST Change: No. Study quality was fair. Artifact: motion artifact, diaphragmatic artifact LEFT VENTRICLE Size: The left ventricular size is small. Systolic Function:The left ventricular systolic function is normal. Wall Motion: No regional wall motion abnormalities noted. The left ventricular ejection fraction was calculated to be >70%.TID = . LV PERFUSION The rest and stress images show normal perfusion. No reversible ischemia or areas of inferior proceed. No obvious TID. RV Size/Shape The right ventricle was not well-visualized. IMPRESSION Stress ECG Summary: Nondiagnostic Conclusion Normal Lexiscan stress test The rest and stress images show normal perfusion. No reversible ischemia or areas of inferior proceed. No obvious TID. The left ventricular size is small. No regional wall motion abnormalities noted. The left ventricular systolic function is normal. Post stress LVEF was calculated to be > 70%. Stress ECG Summary: Nondiagnostic Study indicates a low risk for cardiovascular events. DICTATED BY: ERIC ARANA MD DATE: 08/31/25 0958 ELECTRONICALLY SIGNED BY: ERIC ARANA MD DATE: 08/31/25 1610 UPPER GI ENDOSCOPY(08/31/2025): GASTRITIS WITH EROSION IN THE DUODENUM, BIOPSY TAKEN PATIENT: NADIR SAMANO MR#: [id number] : 1940 SEX: F AGE: 84 LOCATION: [facility] ORDER 1145 STATUS: REG ER REPORT#: [id number] SERVICE 1145 REASON: cp ORDERING PHYSICIAN: RAYSHAWN RODRIGUES CNP PROCEDURE: CXR1VW - CHEST 1VW EXAM: CR Chest, 1 View. CLINICAL HISTORY: cp COMPARISON: None provided. FINDINGS: LUNGS: There is no mass, infiltrate, or acute pulmonary abnormality. PLEURAL SPACES: No evidence of pleural effusion or pneumothorax. MEDIASTINUM: The cardiomediastinal silhouette is within normal limits. BONES: No acute osseous abnormality. IMPRESSION: No acute cardiopulmonary pathology is evident. /[place] DICTATED BY: BROCK CASTILLO Jr., MD DATE: 08/29/251521 ELECTRONICALLY SIGNED BY: BROCK CASTILLO Jr., MD DATE: 08/29/251521 Assessment/Plan: ASSESSMENT: Chest pain, rule out ACS POA Coronary artery disease POA Hypertension POA Hyperlipidemia POA Poorly controlled diabetes mellitus HbA1c 9.1% POA Metabolic alkalosis POA Dementia POA PLAN: Chest pain, rule out ACS POA Coronary artery disease POA Hypertension POA -patient admitted to telemetry. Troponin 8> 13 > 16. EKG no ST-T changes suggestive of ischemia. She has a history of coronary artery disease with stent placed approximately 7 years back. She is on [id number] mg and atorvastatin 10 mg. -continue isosorbide mononitrate 30 mg daily, atorvastatin and aspirin daily. -cardiology recommended for the chemical stress test. -she also underwent upper GI endoscopy which revealed gastritis and erosion in the duodenum. Recommended to start on Protonix 40 mg daily. Hyperlipidemia POA -Total cholesterol 174, triglyceride 63, LDL cholesterol 70, HDL cholesterol 80. She is on 10 mg of atorvastatin daily. -continue atorvastatin. Poorly controlled diabetes mellitus POA -HGB A1c 9.1. She do not look to be taking any antidiabetic medications. -we have started her on low-dose sliding scale insulin -we will monitor her blood glucose. Metabolic alkalosis POA -patient also has a history of chest pain along with recurrent emesis for long period of time. Probably frequent emesis as lead to metabolic alkalosis. GI has planned for the endoscopy on the prior admission but patient left AMA. -we will consult the GI for the possible endoscopy to rule out any obvious lesion GI prophylaxis famotidine To prophylaxis SCD Discharge Instructions: You were admitted to the [facility] for evaluation and management of left chest pain for which chemical stress test was done which came out to be normal. You also underwent upper GI endoscopy which revealed gastritis and erosion in the duodenum, biopsy were taken. We have the following instructions for you on discharge: -Please continue your home medications as recommended -You were started on tablet pantoprazole 40 mg daily for 30 days. Please take it as instructed -Please follow up to GI in 1-2 weeks with a report of the biopsy. -Please follow up to cardiology within 1-2 weeks for further evaluation. -Please follow up to PCP in 2-3 days. Home Medications: Reported Medications Zolpidem Tartrate (Ambien) 5 Mg Tablet, 1 TAB PO HSPRN PRN for sleep for 30 Days, #30 TAB 0 Refills 08/30/25 Acetaminophen (Acetaminophen ER) 650 Mg Tablet.er, 650 MG PO Q4HPRN PRN for MILD PAIN (1-3), TAB 08/29/25 Ubidecarenone (Co Q-10) 200 Mg Capsule, 0.5 CAP PO DAILY for 30 Days, #30 CAP 0 Refills 08/29/25 Tizanidine HCl (Zanaflex) 2 Mg Capsule, 1 CAP PO HS for 30 Days, #30 CAP 0 Refills 08/29/25 Atorvastatin Calcium (Atorvastatin Calcium) 10 Mg Tablet, 1 TAB PO DAILY for 30 Days, #30 TAB 0 Refills 08/29/25 Risperidone (Risperidone) 0.5 Mg Tab.rapdis, 1 TAB PO BID for 30 Days, #30 TAB 0 Refills 08/29/25 Donepezil HCl (Donepezil HCl) 5 Mg Tab.rapdis, 5 MG PO DAILYDINNER, TAB 07/26/25 Isosorbide Mononitrate (Isosorbide Mononitrate ER) 30 Mg Tab.er.24h, 30 MG PO DAILY, TAB 07/26/25 Lacosamide (Vimpat) 50 Mg Tablet, 50 MG PO BID, TAB 07/26/25 Memantine HCl (Memantine HCl ER) 14 Mg Cap.spr.24, 14 MG PO DAILYDINNER, CAP 07/26/25 Acetaminophen (Tylenol Extra Strength) 500 Mg Tablet, 500 MG PO BID PRN for PAIN, TAB 07/26/25 Discontinued Reported Medications Ubidecarenone (Co Q-10) 100 Mg Capsule, 100 MG PO DAILYDINNER, CAP 07/26/25 Quetiapine Fumarate (Quetiapine Fumarate) 25 Mg Tablet, 25 MG PO HS, TAB 07/26/25 New Medications: Pantoprazole Sodium (Protonix) 40 Mg Tablet.dr 1 TAB PO DAILY for 30 Days, #30 TAB 0 Refills Continued Medications: Acetaminophen (Tylenol Extra Strength) 500 Mg Tablet 500 MG PO BID PRN for PAIN, TAB Acetaminophen (Acetaminophen ER) 650 Mg Tablet.er 650 MG PO Q4HPRN PRN for MILD PAIN (1-3), TAB Atorvastatin Calcium (Atorvastatin Calcium) 10 Mg Tablet 1 TAB PO DAILY for 30 Days, #30 TAB 0 Refills Donepezil HCl (Donepezil HCl) 5 Mg Tab.rapdis 5 MG PO DAILYDINNER, TAB Isosorbide Mononitrate (Isosorbide Mononitrate ER) 30 Mg Tab.er.24h 30 MG PO DAILY, TAB Lacosamide (Vimpat) 50 Mg Tablet 50 MG PO BID, TAB Memantine HCl (Memantine HCl ER) 14 Mg Cap.spr.24 14 MG PO DAILYDINNER, CAP Risperidone (Risperidone) 0.5 Mg Tab.rapdis 1 TAB PO BID for 30 Days, #30 TAB 0 Refills Tizanidine HCl (Zanaflex) 2 Mg Capsule 1 CAP PO HS for 30 Days, #30 CAP 0 Refills Ubidecarenone (Co Q-10) 200 Mg Capsule 0.5 CAP PO DAILY for 30 Days, #30 CAP 0 Refills Zolpidem Tartrate (Ambien) 5 Mg Tablet 1 TAB PO HSPRN PRN for sleep for 30 Days, #30 TAB 0 Refills Time spent arranging discharge: 1-30 minutes ATTESTATION BY PHYSICIAN I have seen and examined the patient. I reviewed the documentation, medical decision making, and treatment plan as noted by the resident physician above. I agree with the findings and plan of care. KAYLEE PHELAN MD, SUNIL MD Aug 31, 2025 18:16
== END 2025-08-31 19:10 | disposition home or self-care (01) ==
LOC: EDH 11:35 → EDHIP 15:35 → MERGE 15:35 → 4DH 21:15
PROVIDERS: ADMIT Internal Medicine; ATTEND Internal Medicine
DX: K22.89 Other specified disease of esophagus (principal); K29.70 Gastritis, unspecified, without bleeding; K26.9 Duodenal ulcer, unspecified as acute or chronic, without hemorrhage or perforation; E11.65 Type 2 diabetes mellitus with hyperglycemia; R53.83 Other fatigue; R07.89 Other chest pain; I10 Essential (primary) hypertension; F03.90 Unspecified dementia, unspecified severity, without behavioral disturbance, psychotic disturbance, mood disturbance, and anxiety; I25.10 Atherosclerotic heart disease of native coronary artery without angina pectoris; E78.00 Pure hypercholesterolemia, unspecified; E87.3 Alkalosis; F19.90 Other psychoactive substance use, unspecified, uncomplicated; Z79.899 Other long term (current) drug therapy; Z95.5 Presence of coronary angioplasty implant and graft; Z98.890 Other specified postprocedural states
CPT/HCPCS: 99285; 83036; 84484 ×3; 80061; 80048 ×2; 83880; 85025 ×2; 82948 ×9; 81001; 36415 ×3; 71045; 93005; 96374; 83735 ×2; 80053; 85027; 96375; 88305; 88312; 93017; 78452; 43239; G0378 ×51; J1815 ×6; J1200; J2704; J2470; J2785; A9500 ×2; A4620; A4215 ×2; A4223; A4657; A7002; A4222; A4221; A4663; J7030; A4606; J3490

== ENCOUNTER 2025-09-13 22:49 | Observation (INO) | payer OTHER ==
[~2025-09-13] VITALS: Ht 157.5 cm; Wt 61.2 kg
[~2025-09-13 22:49] MED LIST changes: +ACET-2743 PO; +ACET-3797 PO; +ATOR10TA69 PO; +DONE-51 PO; +ISOS30TA92 PO; +MEMA14CA5 PO; +PANT40TA PO; +RISP0.5T46 PO; +TIZA2CAP PO; +UBID200C18 PO; +ZOLP-684 PO
--- NOTE | 2025-09-13 23:12 | ERN ---
ED Note History of Present Illness Stated Complaint: GENERALIZED BODY ACHES Chief Complaint: Generalized Body Aches Time Seen by MD: 23:02 Dictation: This is an 84-year-old female who presented to the emergency room complaining of generalized body aches. She denied fever chills or rigors. No nausea vomitings. No chest pain pressure PND orthopnea and she recently was admitted on 08/29/2025 for an intermittent chest pain at which time the Lexiscan was negative and enzymes were negative. Patient activated EMS who placed an IV and gave her 300 mL of normal saline prior to coming to the ER. Daughter at the spouse were at bedside. Patient appeared confused intermittently agitated mumbling and being rude at times. Daughter stated that they were at the primary care physician's office and she was prescribed Seroquel 25 mg at bedtime for sleep. As she was complaining of body aches they brought her into the ER for further evaluation Temperature 98.6 pulse 101 respirations 18 blood pressure 130/80 pulse oximetry 94% on room air Chronic medical problems include diabetes mellitus type 2, hypertension, seizure disorder, dementia, coronary artery disease status post stent placements Allergies: Coded Allergies: Propoxyphene HCl (Verified Allergy, Unknown, 06/13/22) Propoxyphene Napsyl (Verified Allergy, Unknown, 06/13/22) acetaminophen (Unverified Allergy, Unknown, 01/13/24) iodine (Verified Allergy, Unknown, 06/13/22) morphine (Verified Allergy, Unknown, 06/13/22) Home Meds Active Scripts Pantoprazole Sodium (Protonix) 40 Mg Tablet.dr, 1 TAB PO DAILY for 30 Days, #30 TAB 0 Refills Prov:STEVEN BAH MD 08/31/25 Reported Medications Zolpidem Tartrate (Ambien) 5 Mg Tablet, 1 TAB PO HSPRN PRN for sleep for 30 Days, #30 TAB 0 Refills 08/30/25 Acetaminophen (Acetaminophen ER) 650 Mg Tablet.er, 650 MG PO Q4HPRN PRN for MILD PAIN (1-3), TAB 08/29/25 Ubidecarenone (Co Q-10) 200 Mg Capsule, 0.5 CAP PO DAILY for 30 Days, #30 CAP 0 Refills 08/29/25 Tizanidine HCl (Zanaflex) 2 Mg Capsule, 1 CAP PO HS for 30 Days, #30 CAP 0 Refills 08/29/25 Atorvastatin Calcium (Atorvastatin Calcium) 10 Mg Tablet, 1 TAB PO DAILY for 30 Days, #30 TAB 0 Refills 08/29/25 Risperidone (Risperidone) 0.5 Mg Tab.rapdis, 1 TAB PO BID for 30 Days, #30 TAB 0 Refills 08/29/25 Donepezil HCl (Donepezil HCl) 5 Mg Tab.rapdis, 5 MG PO DAILYDINNER, TAB 07/26/25 Isosorbide Mononitrate (Isosorbide Mononitrate ER) 30 Mg Tab.er.24h, 30 MG PO DAILY, TAB 07/26/25 Lacosamide (Vimpat) 50 Mg Tablet, 50 MG PO BID, TAB 07/26/25 Memantine HCl (Memantine HCl ER) 14 Mg Cap.spr.24, 14 MG PO DAILYDINNER, CAP 07/26/25 Acetaminophen (Tylenol Extra Strength) 500 Mg Tablet, 500 MG PO BID PRN for PAIN, TAB 07/26/25 Ondansetron (Ondansetron Odt) 4 Mg Tab.rapdis, 4 MG PO TID PRN for VOMITING, TAB 01/13/24 Famotidine (Famotidine) 40 Mg Tablet, 40 MG PO HS, TAB 01/13/24 Ramelteon (Ramelteon) 8 Mg Tablet, 8 MG PO HS PRN for SLEEP, TAB 01/13/24 Hydrocodone/Acetaminophen (Hydrocodon-Acetaminophn 10-325) 10 Mg-325 Mg Tablet, 1 EACH PO [id number] PRN for PAIN, TAB 01/13/24 Omeprazole (Omeprazole) 20 Mg Tab.rap.dr, 20 MG PO DAILY 01/13/24 Aspirin (ASPIRIN 81 MG ECTAB) 81 Mg Ectab, 81 MG PO HS, TAB.EC 01/13/24 Citalopram Hydrobromide (Celexa) 10 Mg Tablet, 10 MG PO DAILY, TAB 01/13/24 Donepezil HCl (Donepezil HCl) 5 Mg Tablet, 5 MG PO DAILY, TAB 01/13/24 Pioglitazone HCl (Pioglitazone HCl) 30 Mg Tablet, 30 MG PO DAILY, TAB 06/17/23 Nitroglycerin (Nitroglycerin) 0.4 Mg Tab.subl, 0.4 MG SL AD PRN for CHEST PAIN, TAB.SL 06/17/23 Lacosamide (Vimpat) 50 Mg Tablet, 50 MG PO BID, TAB 06/17/23 Gabapentin (Gabapentin) 100 Mg Capsule, 100 MG PO TID, CAP 12/23/22 Past Medical History Past Medical History: CAD, Dementia, Diabetes-Type II, Hypertension, Seizure Additional Past Medical Hx: DEMENTIA Surgical History: Other Surgical History Other: EYE SURGERY, BACK SURGERY CARDIAC STENTS Family History: HTN Social History: Negative, Lives with family, Other History: Not Applicable RN Note Reviewed/Agreed w/PFSH: Yes Review of System Dictation Constitutional: Negative for fever,chills, and weight loss positive for generalized body aches Eyes: Negative for injury, pain,redness, and discharge ENT: Negative for injury,pain or swelling Cardiovascular: Negative for chest pain, palpitations, and edema Respiratory: Negative for shortness of breath, cough, and wheezing, Abdomen/GI: Negative for abdominal pain, nausea, vomiting, diarrhea, and constipation Back: Negative for injury and pain : Negative for injury, bleeding and discharge MS/Extremity: Negative for injury and deformity Skin: Negative for rash, and discoloration Neuro: Negative for headache, weakness, numbness, tingling, and seizure Psych: Negative for suicide ideation, homicidal ideation, and positive for confusion and hallucinations Initial Vital Sign VS Vital Signs Date Time Temp Pulse Resp B/P (MAP) Pulse Ox O2 Delivery O2 Flow Rate FiO2 09/13/25 22:51 101 18 130/80 94 Room Air 0 09/13/25 23:28 98.4 21 Physical Exam Dictation General: awake, alert, NAD very confused intermittently and was getting angry for no reason Head/Face: Normocephalic, atraumatic Eyes: PERRL, EOMI, vision at baseline ENT: oral cavity clear, TMs clear, no signs of infection Neck: Trachea midline, supple, no nuchal rigidity Cardiovascular: RRR, normal S1/S2, No MRGs, no JVD Respiratory: CTAB, no respiratory distress, No rales or wheezes Abdomen: Soft, non-tender, non-distended, normal bowel sounds, no guarding or rebound. Skin: Warm, dry, normal turgor, no rash MS/Extremity: Pulses equal, no cyanosis, neurovascular intact, FROM Neuro: COAx4, GCS 15, strength 5/5, CN 2-12 intact, normal cerebellar exam, normal gait, Psych: Normal behavior, mood, and affect normal Extremities-trace edema without any palpable cords, Homans sign is negative Results (Laboratory/Radiology) Laboratory/Radiology Laboratory Tests Test 09/13/25 23:27 09/13/25 23:28 09/14/25 00:20 09/14/25 00:52 White Blood Count 9.1 K/uL (4.8-10.8) Red Blood Count 4.05 MIL/uL (4.00-5.50) Hemoglobin 12.7 g/dL (12.0-16.0) Hematocrit 40.6 % (36-48) Mean Corpuscular Volume 100.2 fL (79-99) H Mean Corpuscular Hemoglobin 31.4 pg (27.0-33.0) Mean Corpuscular Hemoglobin Concent 31.3 g/dL (32.0-36.0) L Red Cell Distribution Width 13.6 % (11.0-15.5) Platelet Count 250 K/uL (130-400) Mean Platelet Volume 11.0 fL (7.5-10.5) H Immature Granulocyte % (Auto) 0.5 % (0-1) Neutrophils (%) (Auto) 95.3 % (40.0-77.0) H Lymphocytes (%) (Auto) 3.7 % (21.0-51.0) L Monocytes (%) (Auto) 0.3 % (3.0-13.0) L Eosinophils (%) (Auto) 0.0 % (0.0-8.0) Basophils (%) (Auto) 0.2 % (0.0-5.0) Neutrophils # (Auto) 8.7 K/uL (1.8-7.7) H Lymphocytes # (Auto) 0.3 K/uL (1.0-4.8) L Monocytes # (Auto) 0.0 K/uL (0.1-1.0) L Eosinophils # (Auto) 0.00 K/uL (0.00-0.70) Basophils # (Auto) 0.02 K/uL (0.00-0.20) Absolute Immature Granulocyte (auto 0.05 K/uL (0-1) Nucleated Red Blood Cells 0.0 % (0.0-0.19) White Cell Morphology Comment See comments Sodium Level 139 mmol/L (136-145) Potassium Level 5.3 mmol/L (3.5-5.1) H Chloride Level 101 mmol/L (101-111) Carbon Dioxide Level 34 mmol/L (21-32) H Blood Urea Nitrogen 21 mg/dL (7-18) H Creatinine 0.9 mg/dL (0.5-1.0) Glomerular Filtration Rate Calc 63 mL/min (>90) Random Glucose 350 mg/dL (70-105) H Total Calcium 9.2 mg/dL (8.5-10.1) Thyroid Stimulating Hormone (TSH) 1.36 uIU/mL (0.36-3.74) # Influenza Type A Antigen Negative For Type A Influenza Type B Antigen Negative For Type B SARS-CoV-2, RNA, NAAT NEGATIVE SARS CoV-2 Group A Streptococcus Rapid negative (NEGATIVE) Urine Color COLORLESS (YELLOW) Urine Appearance CLEAR (CLEAR) Urine pH 7.5 (5.0-8.0) Urine Specific Gerry 1.009 (1.001-1.031) Urine Protein NEGATIVE mg/dL (NEGATIVE) Urine Glucose (UA) >=1000 mg/dL (NEGATIVE) H Urine Ketones 5 mg/dL (NEGATIVE) H Urine Occult Blood NEGATIVE (NEGATIVE) Urine Nitrate NEGATIVE (NEGATIVE) Urine Bilirubin NEGATIVE mg/dL (NEGATIVE) Urine Urobilinogen 0.2 mg/dL (0.2-1.0) Urine Leukocyte Esterase NEGATIVE Kami/uL Urine RBC 0-1 /HPF (0-1) Urine WBC 0-1 /HPF (0-1) Urine Bacteria None /HPF (None Seen) Whole Blood Glucose 302 MG/DL (70-110) H Test 09/14/25 02:09 Whole Blood Glucose 275 MG/DL (70-110) H Labs Reviewed?: Yes ED Course ED Course Orders Procedure Category Date Status Time Cbc With Differential LAB 09/13/25 Complete 23:03 Basic Metabolic Panel LAB 09/13/25 Complete 23:03 Covid Rna Naat LAB 09/13/25 Complete 23:03 Influenza Type A & B, LAB 09/13/25 Complete Rapid 23:03 Rapid (Group A Strep) LAB 09/13/25 Complete 23:03 Urinalysis Profile LAB 09/13/25 Complete 23:05 Orphenadrine Citrate PHA 09/13/25 Complete (Norflex) 23:30 Thyroid Stimulating LAB 09/13/25 Complete Hormone 23:03 12 Lead Ekg Tracing- EKG 09/13/25 Logged Technical 23:45 0.9% Nacl 500ml PHA 09/14/25 Complete Iv.Soln (Ns 500ml 01:00 Insulin Regular, PHA 09/14/25 Complete Human 3ml (Humulin R 01:00 Haloperidol Inj PHA 09/14/25 Complete (Haldol Inj) 02:30 Lorazepam 2 Mg PHA 09/14/25 Complete (Ativan) 02:30 Current Medications Medications (Trade) Dose Ordered Sig/Bhavna Route PRN Reason Start Time Stop Time Status Last Admin Dose Admin Haloperidol Lactate (Haldol Inj) 2 mg ONCE ONCE IM 09/14/25 02:30 09/14/25 02:32 DC Insulin Human Regular (humuLIN R 100 UNIT/ML 3ML) 5 unit ONCE ONCE SQ 09/14/25 01:00 09/14/25 01:01 DC 09/14/25 00:57 Lorazepam (AtiVAN) 1 mg ONCE ONCE IVP 09/14/25 02:30 09/14/25 02:32 DC Orphenadrine Citrate (Norflex) 60 mg ONCE ONCE IM 09/13/25 23:30 09/13/25 23:31 DC 09/14/25 00:18 Sodium Chloride 500 ml @ 0 mls/hr ONCE ONCE IV 09/14/25 01:00 09/14/25 01:01 DC 09/14/25 00:55 Vital Signs Date Time Temp Pulse Resp B/P (MAP) Pulse Ox O2 Delivery O2 Flow Rate FiO2 09/14/25 02:11 93 16 163/60 94 Room Air* 0 21 09/13/25 23:28 98.4 72 20 144/70 94 Room Air* 0 21 09/13/25 22:51 101 18 130/80 94 Room Air 0 Medical Decision Making MDM Differential diagnosis-viral fever, weather changes history of previous multiple falls could be related to contusion, osteoarthritis and osteoporosis This is an 84-year-old female who presented to the emergency room complaining of generalized body aches. She denied fever chills or rigors. No nausea vomitings. No chest pain pressure PND orthopnea and she recently was admitted on 08/29/2025 for an intermittent chest pain at which time the Lexiscan was negative and enzymes were negative. Patient activated EMS who placed an IV and gave her 300 mL of normal saline prior to coming to the ER. Daughter at the spouse were at bedside. Patient appeared confused intermittently agitated mumbling and being rude at times. Daughter stated that they were at the primary care physician's office and she was prescribed Seroquel 25 mg at bedtime for sleep. As she was complaining of body aches they brought her into the ER for further evaluation Temperature 98.6 pulse 101 respirations 18 blood pressure 130/80 pulse oximetry 94% on room air Chronic medical problems include diabetes mellitus type 2, hypertension, seizure disorder, dementia, coronary artery disease status post stent placements 12:30 a.m. CBC shows a white count of 9.1 hemoglobin 12.7 platelets 250 MCV 100.2 BNP 7 BUN is 21 creatinine is 0.9 potassium is 5.3. Glucose 350 Nasopharyngeal swabs for influenza COVID strep were all negative. Patient got more and more agitated and we will give a trial of Haldol and Ativan to calm her agitation. Her elderly had already left to go home. Daughter requested resources to find maybe a facility and if necessary. I recommended admission to control her agitation and confusion at least temporarily until discharge disposition is address and long-term goals are addressed 2:30 a.m. patient accepted by Serge Farrar, mid-level provider for hospitalist group for admission and further management all her of hyperglycemia, worsening agitation likely worsening dementia and sundowning Rationale: Tests considered and ordered secondary to shared decision making include: labs, ECG and radiology Previous outside records reviewed: Old ER visits. Risk of complication and/or morbidity or mortality of patient management: None Medications-Per medication reconciliation Need for hospitalization: Patient does meet criteria for hospitalization. Need for emergency major/minor surgery: No There are no social concerns with this patient. Prescription drug management Prescriptions will include symptomatic care Patient's prior external medical records from other ER visits were reviewed by me as indicated. Prior testing and results from previous visits were reviewed. Prior tests were taken into account with medical decision making and resource utilization, independent historian/historians were used to obtain complete medical history. I independently interpreted the test that were performed, results were reviewed by me and considered findings on radiology if ordered. Medical management and examination interpretation discussions were had by me with other qualified healthcare professionals as indicated for the patient's care. Problem List Problem List: (1) Body aches (2) SunDown syndrome (3) Dementia (4) Diabetes mellitus with hyperglycemia DX & DISP Disposition: Inpatient Decision to Admit Time: 02:21 Departure Impression: Primary Impression: Body aches Additional Impressions: SunDown syndrome, Diabetes mellitus with hyperglycemia, Dehydration, Dementia Condition: Stable Additional Instructions: Patient was informed of all the diagnostic labs and procedures conducted in the emergency room today and demonstrated understanding of the results. I personally reviewed and interpreted all the diagnostic exams performed in the ER today. The patient will be admitted to the hospital for further treatment and evaluation. Disposition-admit to facility Condition-stable/guarded Course-uncertain at this time Pain status-decreased Assessment-exam unchanged Admission Certification- I certify that the patients status is appropriate and is based on my best clinical judgment and the patient's condition as documented in the medical records Referrals: MARY ANN RIVERA MD (PCP) VIJAYA ROSARIO MD Sep 13, 2025 23:12
[2025-09-13 23:39] LABS: IMMATURE GRANULOCYTE ABSOLUTE 0.05 K/uL (0-1); NUCLEATED RED BLOOD CELLS 0.0 % (0.0-0.19); PLATELET COUNT (AUTO) 250 K/uL (130-400); RED BLOOD CELL COUNT(AUTO) 4.05 MIL/uL (4.00-5.50); RED CELL DISTRIBUTION WIDTH 13.6 % (11.0-15.5); WHITE BLOOD COUNT (AUTO) 9.1 K/uL (4.8-10.8)
[2025-09-13 23:46] LABS: CREATININE 0.9 mg/dL (0.5-1.0); GLOMERULAR FILTR. RATE CALC 63.0 mL/min (>90); GLUCOSE,RANDOM 350.0 mg/dL (70-105); SODIUM SERUM 139.0 mmol/L (136-145); UREA NITROGEN, BLOOD 21.0 mg/dL (7-18)
[2025-09-14] MEDS: ORPHENADRINE 60MG/2ML IM ONE (00:18)
[2025-09-14 00:25] LABS: RAPID GROUP A STREP negative (NEGATIVE)
[2025-09-14 00:32] LABS: SARS-CoV-2, RNA, NAAT NEGATIVE SARS CoV-2 (NEGATIVE)
[2025-09-14 00:35] LABS: INFLUENZA TYPE A Negative For Type A (NEGATIVE); INFLUENZA TYPE B Negative For Type B (NEGATIVE)
[2025-09-14] MEDS: 0.9% NACL 500ML IV.SOLN 500 ML IV ONE (00:55)
[2025-09-14 00:56] LABS: ADD UA MICROSCOPIC YES; APPEARANCE,URINE CLEAR (CLEAR); GLUCOSE, URINE (UA) >=1000 mg/dL (NEGATIVE); LEUKOCYTE ESTERASE ,URINE NEGATIVE Leu/uL (NEGATIVE); NITRATE,URINE NEGATIVE (NEGATIVE); OCCULT BLOOD,URINE NEGATIVE (NEGATIVE)
[2025-09-14] MEDS: HALOPERIDOL INJ 5 MG/ML VIAL IM ONE (02:40)
--- NOTE | 2025-09-14 02:43 | HP ---
History of Present Illness Reason for Visit: Altered mental status Referring MD: SELF REFERRAL History of Present Illness Ms. Theodore is an 84-year-old female that was seen and examined today on 09/14/2025. Patient's daughter (mago bates) at bedside. Patient was brought to the emergency department with a chief complaint of confusion. Onset is chronic. Duration is constant. Character is described as like worsening dementia. There was no alleviating factors. There was no aggravating factors. There was no associated chest pain or shortness and breath. Today in the emergency department potassium 5.3, glucose 350 mg/dL, CBC unremarkable, urinalysis unremarkable, no diagnostic radiographic imaging was ordered. Family has been considering placing patient in a retirement facility at some point in the near future but not right now until all siblings and patients can discuss it collectively. Past Medical History Patient History: Cancer MOTHER, , Cause: Cancer (OVARIAN, BRAIN TUMOR) BROTHER, , Cause: Cancer (LUNG) Carcinomas MOTHER (BRAIN) Cardiovascular disease FATHER BROTHER SISTER Diabetes mellitus MOTHER FATHER SISTER Family history: Cardiovascular disease FATHER, , Cause: Myocardial infarct BROTHER SISTER ( OF HEART ATTACK), Family history: Diabetes mellitus MOTHER, , Cause: Cancer SISTER ( OF HEART ATTACK), Family history: Hypertension SISTER ( OF HEART ATTACK), Hypertension FATHER, , Cause: Myocardial infarct MOTHER Hypertension FATHER, , Cause: Myocardial infarct MOTHER No Family History of: Alzheimer's disease Asthma Immunocompromised state Sudden PAST MEDICAL HISTORY: [Coronary artery disease (CAD) Hyperlipidemia Hypertension Heart disease PAST SURGICAL HISTORY: [ Cardiac stents ] PAST SOCIAL HISTORY: [ Lives with her . Denies tobacco, alcohol or illicit drug . patient is dependant of her adls. patient lives with Dani Sung. Review of Systems General: No Fever, No Chills, No Night Sweats, No Fatigue, No Malaise, No Appetite, No Other HEENT: No Head Aches, No Visual Changes, No Eye Pain, No Ear Pain, No Dysphasia, No Sinus Congestion, No Post Nasal Drip, No Sore Throat, No Other Pulmonary: No Dyspnea, No Cough, No Pleuritic Chest Pain, No Other Cardiovascular: No: Chest Pain, Palpitations, Orthopnea, Paroxysmal Noc. Dyspnea, Edema, Lt Headedness, Other Gastrointestinal: No: Nausea, Vomiting, Abdominal Pain, Diarrhea, Constipation, Melena, Hematochezia, Other Genitourinary: No Dysuria, No Frequency, No Incontinence, No Hematuria, No Retention, No Other Musculoskeletal: No: other, neck pain, shoulder pain, arm pain, back pain, hand pain, leg pain, foot pain Skin: No Urticaria, No Rash, No Other Neurological: Confusion; No: Weakness, Numbness, Incoordination, Change in speech, Seizures, Other Allergies: Coded Allergies: Propoxyphene HCl (Verified Allergy, Unknown, 06/13/22) Propoxyphene Napsyl (Verified Allergy, Unknown, 06/13/22) acetaminophen (Unverified Allergy, Unknown, 01/13/24) iodine (Verified Allergy, Unknown, 06/13/22) morphine (Verified Allergy, Unknown, 06/13/22) Scheduled Aspirin (Aspirin 81 Mg Ectab), 81 MG PO HS, (Reported) Atorvastatin Calcium (Atorvastatin Calcium), 1 TAB PO DAILY, (Reported) Citalopram Hydrobromide (Celexa), 10 MG PO DAILY, (Reported) Donepezil HCl (Donepezil HCl), 5 MG PO DAILY, (Reported) Donepezil HCl (Donepezil HCl), 5 MG PO DAILYDINNER, (Reported) Famotidine (Famotidine), 40 MG PO HS, (Reported) Gabapentin (Gabapentin), 100 MG PO TID, (Reported) Isosorbide Mononitrate (Isosorbide Mononitrate ER), 30 MG PO DAILY, (Reported) Lacosamide (Vimpat), 50 MG PO BID, (Reported) Lacosamide (Vimpat), 50 MG PO BID, (Reported) Memantine HCl (Memantine HCl ER), 14 MG PO DAILYDINNER, (Reported) Omeprazole (Omeprazole), 20 MG PO DAILY, (Reported) Pantoprazole Sodium (Protonix), 1 TAB PO DAILY Pioglitazone HCl (Pioglitazone HCl), 30 MG PO DAILY, (Reported) Risperidone (Risperidone), 1 TAB PO BID, (Reported) Tizanidine HCl (Zanaflex), 1 CAP PO HS, (Reported) Ubidecarenone (Co Q-10), 0.5 CAP PO DAILY, (Reported) Scheduled PRN Acetaminophen (Tylenol Extra Strength), 500 MG PO BID PRN for PAIN, (Reported) Acetaminophen (Acetaminophen ER), 650 MG PO Q4HPRN PRN for MILD PAIN (1-3), (Reported) Hydrocodone/Acetaminophen (Hydrocodon-Acetaminophn 10-325), 1 EACH PO [id number] PRN for PAIN, (Reported) Nitroglycerin (Nitroglycerin), 0.4 MG SL AD PRN for CHEST PAIN, (Reported) Ondansetron (Ondansetron Odt), 4 MG PO TID PRN for VOMITING, (Reported) Ramelteon (Ramelteon), 8 MG PO HS PRN for SLEEP, (Reported) Zolpidem Tartrate (Ambien), 1 TAB PO HSPRN PRN for sleep, (Reported) Exam Vital Signs Vital Signs Date Time Temp Pulse Resp B/P (MAP) Pulse Ox O2 Delivery O2 Flow Rate FiO2 09/14/25 02:11 93 16 163/60 94 Room Air* 0 21 09/13/25 23:28 98.4 General Appearance: Alert (x1), Cooperative, No acute distress HEENT: Atraumatic, EOMI, Mucous membr. moist/pink Respiratory: Clear to auscultation, Normal air movement, NL respiratory effort Cardiovascular: Regular rate, Regular rhythm, Normal S1, Normal S2 Abdominal: Normal bowel sounds, Soft, No tenderness Extremities: No edema Skin: No significant lesion Neuro: Normal speech, Strength at 5/5 X4 ext, Sensation intact Psych/Mental Status: Other (Patient confused) Assessment/Plan ASSESSMENT: [ Metabolic encephalopathy, POA Uncontrolled Diabetes mellitius type2, POA Hyperkalemia, POA CAD Hyperlipidemia Hypertension] PLAN: [ Admit patient to medical floor as inpatient status. Place patient on fall precautions. Check glucometer a.c. and HS Humulin R sliding scale Hemoglobin A1c in a.m. Lokelma 10 g by mouth times 1 Consider resuming patient's home medications once they have been reconciled At time of admission home medications has been reconciled For now: Hydralazine 10 mg IV every 4 hours for systolic blood pressure greater than 160 mmHg Atorvastatin 40 mg by mouth once daily GI prophylaxis, famotidine DVT prophylaxis, Lovenox ADVANCED CARE PLANNING 1. Which of the following were discussed? Hospice Care - Yes Therapeutic options - yes Advance Directives - Yes - patient does not have any advanced directives in place but , Dani is able to make decisions for her Other discussions - wishes for patient to remain a full code at this time. 2. Discussed with who? , Dani Sung, and daughter Mago Bates 3. Voluntary nature of this service was explained to the patient? Yes 4. Amount of time spent - ___16 minutes____ 5. Reviewed by Physician? (if this service was performed by NPP) Yes This document was generated in part using voice recognition software, occasional wrong word or sound alike substitutions may have occurred due to the inherent limitations of voice recognition software. Read the chart carefully and recognize using context, where the substitutions have occurred. Although every effort was made to edit the content, feeder loader and typing errors may occur ATTESTATION BY PHYSICIAN I have seen and examined the patient. I reviewed the documentation, medical decision making, and treatment plan as noted by the mid-level provider above. I agree with the findings and plan of care. ] LUSI [facility]LEY [facility] Sep 14, 2025 02:43
--- NOTE | 2025-09-14 02:55 | NUR ---
BARNEY MASTER OF CEREMONIES AT BEDSIDE
[2025-09-14] MEDS: NA ZIRCON CYCLOSIL(LOKELMA 10GM) PO ONE (03:00)
[2025-09-14] MEDS ORDERED: LACTULOSE 20 GM/30 ML UDCUP PO PRN (03:00)
[2025-09-14] MEDS ORDERED: RISP0.5T46 PO (03:01)
[2025-09-14] MEDS ORDERED: OXYB10TA30 PO (03:01)
[2025-09-14] MEDS ORDERED: QUET25TA36 PO (03:01)
[2025-09-14] MEDS ORDERED: ATOR10 PO (03:01)
[2025-09-14] MEDS ORDERED: CELE-146 PO (03:01)
--- NOTE | 2025-09-14 03:27 | NUR ---
ATTEMPTED TO GIVE LOKELMA ORDRED TO PATIENT, UNABLE TO ADMINISTER, PATIENT IS DROWSY AT THIS TIME WAS GIVEN ATIVAN AND HALDOL PREV. BARNEY CLINICAL IMPLEMENTATION SPECIALIST MADE AWARE.
--- NOTE | 2025-09-14 07:13 | EKG ---
[facility] Test Date: 2025-09-13 Test Time: 23:49:46 Pat Name: NADIR ORTIZ Department: [facility] Room: 412 Gender: F Sausage Tier: [id number] : 1940 Requested By: VIJAYA ROSARIO Order Number: [id number] Reading MD: Ba Estes Measurements Intervals [place] Rate: 76 P: 42 TN: 163 QRS: -14 QRSD: 78 T: 19 QT: 383 QTc: 431 Interpretive Statements Sinus rhythm Low voltage, precordial leads Compared to ECG 08/29/2025 11:41:34 Low QRS voltage now present Electronically Signed On 09-15-2025 08:40:31 MULTIFOCAL BUTTON GENERATOR by Ba Estes Please click the below link to view image of tracing.
[2025-09-14 07:14] LABS: CREATININE 0.7 mg/dL (0.5-1.0); GLOMERULAR FILTR. RATE CALC 86.0 mL/min (>90); GLUCOSE,RANDOM 192.0 mg/dL (70-105); SODIUM SERUM 138.0 mmol/L (136-145); UREA NITROGEN, BLOOD 20.0 mg/dL (7-18)
[2025-09-14 07:32] LABS: IMMATURE GRANULOCYTE ABSOLUTE 0.02 K/uL (0-1); NUCLEATED RED BLOOD CELLS 0.0 % (0.0-0.19); PLATELET COUNT (AUTO) 243 K/uL (130-400); RED BLOOD CELL COUNT(AUTO) 4.05 MIL/uL (4.00-5.50); RED CELL DISTRIBUTION WIDTH 13.4 % (11.0-15.5); WHITE BLOOD COUNT (AUTO) 8.0 K/uL (4.8-10.8)
[2025-09-14] MEDS: FAMOTIDINE 20MG TAB PO SCH (09:51)
[2025-09-14] MEDS: ENOXAPARIN SODIUM 40 MG/0.4 ML SYRINGE SQ SCH (09:52)
[2025-09-14 10:20] LABS: ASPARTATE AMINOTRANSFERASE 40 U/L (10-37); TOTAL PROTEIN, SERUM 6.9 g/dL (6.0-8.3)
--- NOTE | 2025-09-14 11:53 | NUR ---
DCP:HOME SW gathered information from daughter, Mago Butler, who was at bedside. Pt currently lives at home with her . Pt has a wheelchair, cane, and walker. pt does not have any home health or provider services. Daughter states that her or her father assist the pt with ADLs. PCP is Dr. Cohen and uses [facility] for any RX needs. At DC pt will want to go home and family can assist with transportation.
[2025-09-14 17:45] VITALS: O2SAT 96
[2025-09-14 18:00] VITALS: BP 156/71; PULSE 76; RESP 16; TEMP 98
--- NOTE | 2025-09-14 18:30 | NUR ---
AT BEDSIDE , PATIENT IS CONFUSED TO PLACE AND TIME HAS ONE TO ONE SITTER REORIENTED TO LOCATION.
[2025-09-14 19:21] VITALS: BP 156/70; PULSE 70; RESP 18; TEMP 97.8
[2025-09-14 20:00] VITALS: O2SAT 97
[2025-09-14 23:53] VITALS: BP 113/50; PULSE 65; RESP 16; TEMP 98.1
[2025-09-15 04:00] VITALS: BP 121/51; PULSE 60; RESP 16; TEMP 98.2
[2025-09-15 05:46] LABS: IMMATURE GRANULOCYTE ABSOLUTE 0.03 K/uL (0-1); NUCLEATED RED BLOOD CELLS 0.0 % (0.0-0.19); PLATELET COUNT (AUTO) 248 K/uL (130-400); RED BLOOD CELL COUNT(AUTO) 3.83 MIL/uL (4.00-5.50); RED CELL DISTRIBUTION WIDTH 13.6 % (11.0-15.5); WHITE BLOOD COUNT (AUTO) 9.4 K/uL (4.8-10.8)
[2025-09-15 06:03] LABS: ASPARTATE AMINOTRANSFERASE 25.0 U/L (10-37); CREATININE 0.6 mg/dL (0.5-1.0); GLOMERULAR FILTR. RATE CALC 89.0 mL/min (>90); GLUCOSE,RANDOM 184.0 mg/dL (70-105); LACTATE DEHYDROGENASE 243.0 U/L (81-234); PHOSPHORUS 2.5 mg/dL (2.5-4.9); SODIUM SERUM 143.0 mmol/L (136-145); TOTAL PROTEIN, SERUM 5.7 g/dL (6.0-8.3); UREA NITROGEN, BLOOD 16.0 mg/dL (7-18)
[2025-09-15 07:54] VITALS: BP 132/79; PULSE 82; RESP 18; TEMP 98.2
--- NOTE | 2025-09-15 08:00 | HMCIMG ---
EXAM: CT Head Without IV contrast. CLINICAL HISTORY: H/O FALLS, AMS TECHNIQUE: Axial computed tomography images of the head/brain without intravenous contrast. COMPARISON: None provided. FINDINGS: BRAIN: Chronic ischemic and atrophic changes. No evidence of acute hemorrhage. No mass lesion. No CT evidence for acute territorial infarct. No midline shift or extra-axial collections. VENTRICLES: No hydrocephalus. ORBITS: The orbits are unremarkable. SINUSES AND MASTOIDS: The paranasal sinuses and mastoid air cells are clear. BONES: No fracture. SOFT TISSUES: Unremarkable. IMPRESSION: 1. No acute intracranial findings. 2. Chronic ischemic and atrophic changes. /[place]
[2025-09-15] MEDS: ISOSORBIDE MONO 30MG SR TAB PO SCH (10:38)
[2025-09-15] MEDS: MAGNESIUM 2GM PREMIX 50ML 50 ML IV SCH (10:44)
[2025-09-15 11:28] VITALS: BP 137/60; PULSE 67; RESP 16; TEMP 97.9
[2025-09-15] MEDS ORDERED: METF-444 PO (12:48)
--- NOTE | 2025-09-15 12:54 | DS ---
Discharge Summary Hospital Course Summary: The patient admitted to the hospital 09/14/2025 with the following history of the present illness Patient was brought to the emergency department with a chief complaint of confusion. Onset is chronic. Duration is constant. Character is described as like worsening dementia. There was no alleviating factors. There was no aggravating factors. There was no associated chest pain or shortness and breath. Today in the emergency department potassium 5.3, glucose 350 mg/dL, CBC unremarkable, urinalysis unremarkable, no diagnostic radiographic imaging was ordered. Family has been considering placing patient in a half-way facility at some point in the near future but not right now until all siblings and patients can discuss it collectively. HOSPITAL COURSE 09/15 patient admitted to the medical floor, case discussed with the RN, no acute events overnight, at the time of my visit the patient is comfortably sitting in the chair, awake, at baseline mental status, following simple commands, not agitated, not combative. Blood pressure 137/60, afebrile, saturating normal on room air. Potassium level at 3.[address] head without contrast no acute intracranial findings, chronic ischemic and atrophic changes. We will give potassium chloride 40 mEq p.o. x1 and magnesium sulfate2 g IV x1 after which we will recheck electrolyte levels. Hemoglobin A1c at 9.2. Daughter is at bedside, discussed results of CT of the head as well as hemoglobin A1c level. Plan is for the patient to be discharged home today. Per my discussion with the daughter if her mental status continue to decline, they we will attempt to admit the patient to a dementia unit. In the meantime they we will be investigating this kind of facilities. In terms of the elevated hemoglobin A1c I have recommended to initiate metformin 500 mg p.o. b.i.d. with close monitoring of the patient's blood glucose level. Per my discussion with the daughter, she stated that the patient has a good appetite and eats all her meals. I advised her to monitor for signs of hypoglycemia. I asked the daughter the patient has a history of diabetes mellitus, she stated yes but they have difficult time given the medication to the patient because she refuses. Once again I advised her to keep a close eye on her blood glucose level and to discuss further recommendations with the her PCP as an outpatient. Daughter agreed and understood the information provided. General Appearance: Alert (x1), Cooperative, No acute distress HEENT: Atraumatic, EOMI, Mucous membr. moist/pink Respiratory: Clear to auscultation, Normal air movement, NL respiratory effort Cardiovascular: Regular rate, Regular rhythm, Normal S1, Normal S2 Abdominal: Normal bowel sounds, Soft, No tenderness Extremities: No edema Skin: No significant lesion Neuro: Normal speech, Strength at 5/5 X4 ext, Sensation intact Psych/Mental Status: Other (Patient confused) Assessment/Plan: Final diagnosis Acute Metabolic encephalopathy, POA Uncontrolled Diabetes mellitius type2, POA Hyperkalemia, POA CAD Hyperlipidemia Hypertension Hypomagnesemia Dementia Mild malnutrition, POA Discharge Instructions: The patient to follow with her PCP as an outpatient, return to the hospital if condition changes. Plan of action discussed in detail with the daughter, she agreed and understood the information provided. Home Medications: Active Scripts Pantoprazole Sodium (Protonix) 40 Mg Tablet.dr, 1 TAB PO DAILY for 30 Days, #30 TAB 0 Refills Prov:STEVEN BAH MD 08/31/25 Reported Medications Oxybutynin Chloride (Oxybutynin Chloride ER) 10 Mg Tab.er.24, 1 TAB PO HS for 30 Days, #30 TAB 0 Refills 09/14/25 Atorvastatin Calcium (LIPITOR) 10 Mg Tab, 1 TAB PO HS for 30 Days, #30 TAB 0 Refills 09/14/25 Quetiapine Fumarate (Quetiapine Fumarate) 25 Mg Tablet, 1 TAB PO HS for 30 Days, #30 TAB 0 Refills 09/14/25 Celecoxib (Celecoxib) 100 Mg Capsule, 1 CAP PO HS for 10 Days, #20 CAP 0 Refills 09/14/25 Risperidone (Risperidone) 0.5 Mg Tab.rapdis, 1 TAB PO BID for 30 Days, #30 TAB 0 Refills 08/29/25 Donepezil HCl (Donepezil HCl) 5 Mg Tab.rapdis, 5 MG PO DAILYDINNER, TAB 07/26/25 Isosorbide Mononitrate (Isosorbide Mononitrate ER) 30 Mg Tab.er.24h, 30 MG PO DAILY, TAB 07/26/25 Lacosamide (Vimpat) 50 Mg Tablet, 50 MG PO BID, TAB 07/26/25 Gabapentin (Gabapentin) 100 Mg Capsule, 100 MG PO TID, CAP 12/23/22 Discontinued Reported Medications Risperidone (Risperidone) 0.5 Mg Tab.rapdis, 2 TAB PO BID PRN for ANXIETY/AGITATION for 30 Days, #30 TAB 0 Refills 09/14/25 Zolpidem Tartrate (Ambien) 5 Mg Tablet, 1 TAB PO HSPRN PRN for sleep for 30 Days, #30 TAB 0 Refills 08/30/25 Acetaminophen (Acetaminophen ER) 650 Mg Tablet.er, 650 MG PO Q4HPRN PRN for MILD PAIN (1-3), TAB 08/29/25 Ubidecarenone (Co Q-10) 200 Mg Capsule, 0.5 CAP PO DAILY for 30 Days, #30 CAP 0 Refills 08/29/25 Tizanidine HCl (Zanaflex) 2 Mg Capsule, 1 CAP PO HS for 30 Days, #30 CAP 0 Refills 08/29/25 Atorvastatin Calcium (Atorvastatin Calcium) 10 Mg Tablet, 1 TAB PO DAILY for 30 Days, #30 TAB 0 Refills 08/29/25 Memantine HCl (Memantine HCl ER) 14 Mg Cap.spr.24, 14 MG PO DAILYDINNER, CAP 07/26/25 Acetaminophen (Tylenol Extra Strength) 500 Mg Tablet, 500 MG PO BID PRN for PAIN, TAB 07/26/25 Ondansetron (Ondansetron Odt) 4 Mg Tab.rapdis, 4 MG PO TID PRN for VOMITING, TAB 01/13/24 Famotidine (Famotidine) 40 Mg Tablet, 40 MG PO HS, TAB 01/13/24 Ramelteon (Ramelteon) 8 Mg Tablet, 8 MG PO HS PRN for SLEEP, TAB 01/13/24 Hydrocodone/Acetaminophen (Hydrocodon-Acetaminophn 10-325) 10 Mg-325 Mg Tablet, 1 EACH PO [id number] PRN for PAIN, TAB 01/13/24 Omeprazole (Omeprazole) 20 Mg Tab.rap.dr, 20 MG PO DAILY 01/13/24 Aspirin (ASPIRIN 81 MG ECTAB) 81 Mg Ectab, 81 MG PO HS, TAB.EC 01/13/24 Citalopram Hydrobromide (Celexa) 10 Mg Tablet, 10 MG PO DAILY, TAB 01/13/24 Donepezil HCl (Donepezil HCl) 5 Mg Tablet, 5 MG PO DAILY, TAB 01/13/24 Pioglitazone HCl (Pioglitazone HCl) 30 Mg Tablet, 30 MG PO DAILY, TAB 06/17/23 Nitroglycerin (Nitroglycerin) 0.4 Mg Tab.subl, 0.4 MG SL AD PRN for CHEST PAIN, TAB.SL 06/17/23 Lacosamide (Vimpat) 50 Mg Tablet, 50 MG PO BID, TAB 06/17/23 Time spent arranging discharge: 31-60 minutes ISMAEL SCRUGGS MD Sep 15, 2025 12:54
--- NOTE | 2025-09-15 13:00 | NUR ---
NOTIFICATION DR SCRUGGS CALLED WANTS LABS DRAWN AT 1415 FOR K AND MAGNESIUM IF LEVELS ARE WNL D/C.
[2025-09-15] MEDS: PoTASSium chloRIDE 20MEQ ER 20 MEQ ERTAB PO ONE (13:39)
[2025-09-15 15:38] LABS: NUCLEATED RED BLOOD CELLS 0.0 % (0.0-0.19); PLATELET COUNT (AUTO) 282.0 K/uL (130-400); RED BLOOD CELL COUNT(AUTO) 4.44 MIL/uL (4.00-5.50); RED CELL DISTRIBUTION WIDTH 13.8 % (11.0-15.5); WHITE BLOOD COUNT (AUTO) 12.7 K/uL (4.8-10.8)
[2025-09-15] MEDS ORDERED: CEFD300C3 PO (16:18)
[2025-09-15 16:33] VITALS: BP 133/66; PULSE 77; RESP 18; TEMP 98.3
[2025-09-15] MEDS ORDERED: RISP0.5T46 PO (17:02)
== END 2025-09-15 17:00 | disposition home or self-care (01) ==
LOC: EDH 22:49 → INTOOBSV 09-14 02:34 → EDHIP 09-14 02:34 → UNDOADMOB 09-14 02:34 → EDHIP 09-14 17:45 → 4BH 09-14 17:45 → EDHIP 09-15 08:30 → 4BH 09-15 08:30
PROVIDERS: ADMIT Internal Medicine; ATTEND Internal Medicine
DX: G93.41 Metabolic encephalopathy (principal); Z20.822 Contact with and (suspected) exposure to COVID-19; E11.65 Type 2 diabetes mellitus with hyperglycemia; E83.42 Hypomagnesemia; E87.5 Hyperkalemia; E86.0 Dehydration; E44.1 Mild protein-calorie malnutrition; E78.5 Hyperlipidemia, unspecified; I25.10 Atherosclerotic heart disease of native coronary artery without angina pectoris; F03.92 Unspecified dementia, unspecified severity, with psychotic disturbance; F05 Delirium due to known physiological condition; I10 Essential (primary) hypertension; G40.909 Epilepsy, unspecified, not intractable, without status epilepticus; Z79.899 Other long term (current) drug therapy; Z88.6 Allergy status to analgesic agent; Z88.8 Allergy status to other drugs, medicaments and biological substances; Z68.24 Body mass index [BMI] 24.0-24.9, adult; Z88.5 Allergy status to narcotic agent
CPT/HCPCS: 84443; 80048 ×2; 85025 ×3; 93005; 96372 ×2; 96375; 99285; 83036; 80076; 87880; 87804 ×2; 82948 ×3; 81001; 36415 ×2; 87635; 70450; 84132; 85027; 96365; 83615; 83735 ×2; 84100; 80053; J1815; J7040; J1630; J2060; J1650; G0378 ×8; J3475; 96360; J2360